=== PATIENT | male | born 1960 | race Caucasian/White ===

== ENCOUNTER 2018-01-29 06:33 | Day surgery (SDC) | END 2018-01-29 16:13 | disposition home or self-care (01) ==

== ENCOUNTER 2018-06-03 14:34 | Inpatient (IN) | payer OTHER ==
[~2018-06-03] VITALS: Ht 167.6 cm; Wt 67.6 kg
[~2018-06-03 14:34] MED LIST: ADMELOG; ALBUTEROL SULFATE; ATORVASTATIN; FERROUS SULFATE; FUROSEMIDE; GLIPIZIDE; HYDRALAZINE; LOSARTAN; TAMSULOSIN
[2018-06-03] MEDS ORDERED: FUROSEMIDE 40 MG INJ IV STA (16:36)
[2018-06-03] MEDS ORDERED: ASPIRIN 81 MG TAB PO STA (16:36)
[2018-06-03] MEDS ORDERED: NITROGLYCERIN 2% 1 GM OINT PKT TD STA (16:36)
[2018-06-03] MEDS ORDERED: NITROGLYCERIN (SL) 0.4 MG TAB SL PRN (17:00)
[2018-06-03] MEDS ORDERED: SITA100T11 PO (17:32)
[2018-06-03] MEDS ORDERED: TAMS0.4C2 PO (17:32)
[2018-06-03] MEDS ORDERED: HYDR-3672 PO (17:33)
[2018-06-03] MEDS ORDERED: ATOR40TA68 PO (17:33)
[2018-06-03] MEDS ORDERED: LOSA50TA14 PO (17:34)
[2018-06-03] MEDS ORDERED: INSU100I33 SC (17:34)
[2018-06-03] MEDS ORDERED: GLIP5TAB13 PO (17:35)
[2018-06-03] MEDS ORDERED: FURO80TA3 PO (17:36)
[2018-06-03] MEDS ORDERED: FER325 PO (17:36)
[2018-06-03] MEDS ORDERED: GLIP10TA14 PO (17:36)
[2018-06-03] MEDS ORDERED: EPOE10004 IJ (17:37)
[2018-06-03] MEDS ORDERED: CEFTRIAXONE 1 GM/50 ML (PMX) 50 ML IVPB STA (17:53)
[2018-06-03] MEDS ORDERED: AZITHROMYCIN 500MG/NS (PMX) 250 ML IV STA (17:53)
[2018-06-03] MEDS ORDERED: ACETAMINOPHEN 325 MG TAB PO PRN (19:30)
[2018-06-03] MEDS ORDERED: ONDANSETRON 4 MG INJ IV PRN (19:30)
[2018-06-03 20:30] VITALS: BP 159/88; PULSE 64; RESP 18
[2018-06-03] MEDS ORDERED: NACL 0.9% 3 ML SYG IV SCH (20:30)
[2018-06-03] MEDS ORDERED: BISACODYL (EC) 5 MG TAB PO PRN (20:30)
[2018-06-03 20:45] VITALS: Ht 167.6 cm; Wt 67.6 kg
--- NOTE | 2018-06-03 21:12 | HP ---
Date/Time of Note Date/Time of Note DATE: 06/03/18 TIME: 21:12 Assessment/Plan VTE Prophylaxis SCD applied (from Nsg): Yes Pharmacological prophylaxis: NA/contraindicated Pharm contraindication: low risk/ambulating Lines/Catheters IV Catheter Type (from Nrsg): Saline Lock Assessment/Plan Hospital Course This is a 58-year-old male who is being admitted to the telemetry floor for: #1 volume overload: Likely multifactorial secondary to underlying suspected end- stage renal disease/cardiac etiology and possible obstructive uropathy. Patient at the current time is not in any respiratory distress. He does have extensive pitting edema of the bilateral lower extremities as well as some of the scrotum. Patient was noted to have a distended abdomen, and Abdi catheter was initially difficult to place eventually though it was put in. There was urine output. Will check a renal ultrasound. Will check urine studies. Will consult nephrology Dr. Canada. Will obtain an echocardiogram. #2 acute on chronic chronic kidney disease with suspected near end-stage renal disease: Likely secondary to underlying hypertension/diabetes mellitus. Patient has a history of chronic kidney disease however I do not have any previous creatinine values. I also feel there may be a component of obstructive uropathy given the difficulty in placing his Abdi. At the current time he has a BUN of 80 with a creatinine of 5.2. Abdi catheter was initially difficult to place however now it is putting a urine. We will monitor renal function. Will check a renal ultrasound. Check urine studies. Will consult nephrology Dr. Canada. He did receive a dose of Lasix 40 mg IV in the ED, I will give a dose of Zaroxolyn and an additional 60 IV of Lasix to assess diuresis. Avoid NSAIDs. Will hold ARB at the current time. I did discuss with the patient and his son over the phone in regards to the patient possibly needing temporary as well as permanent dialysis access, the patient states that he will discuss with his family as well as with the father and get back to us regarding this will also ch juan diego hepatitis panel and vitamin D and parathyroid levels. #3 possible obstructive uropathy: Initial difficulty in placing Abdi secondary to resistance, concern for possible BPH. Will check a PSA level. Will consult urology. #4 suspect community-acquired pneumonia: Chest x-ray does show signs of possible pneumonia. He is afebrile although it is a normal white blood cell count. We will treat as for possible pneumonia at the current time with ceftriaxone and azithromycin is a 30 been initiated in the ED. Monitor for signs of fever. #5 insulin-dependent diabetes mellitus: We will check a hemoglobin A1c, resume home insulin, will hold home oral medications. Insulin sliding scale. Will check urine microalbumin. #6 Hypertensive urgency: We will resume patient's home medications except for losartan which I will be holding. PRN hydralazine, I will also initiate 5 mg of Norvasc daily. #7 normocytic anemia: Likely secondary to underlying chronic kidney disease. Further management as per nephro. Does appear to be on Procrit as an outpatient #8 hyperlipidemia: Continue statin check lipid panel #9 blindness: Likely secondary to diabetic retinopathy. #10 DVT GI prophylaxis: SCDs, no GI prophylaxis indicated Further treatment strategy will be implemented as per the clinical course. Result Diagram: 06/03/18 1641 06/03/18 1958 Results 24hrs Laboratory Tests Test 06/03/18 16:41 06/03/18 18:15 06/03/18 19:58 White Blood Count 5.0 Red Blood Count 3.91 L Hemoglobin 10.6 L Hematocrit 34.7 L Mean Corpuscular Volume 88.7 Mean Corpuscular Hemoglobin 27.1 L Mean Corpuscular Hemoglobin Concent 30.5 L Red Cell Distribution Width 16.2 H Platelet Count 224 Mean Platelet Volume 9.1 Immature Granulocytes % 0.400 Neutrophils % 72.2 Lymphocytes % 12.0 L Monocytes % 10.6 Eosinophils % 4.2 Basophils % 0.6 Nucleated Red Blood Cells % 0.0 Immature Granulocytes # 0.020 Neutrophils # 3.6 Lymphocytes # 0.6 L Monocytes # 0.5 Eosinophils # 0.2 Basophils # 0.0 Nucleated Red Blood Cells # 0.0 Sodium Level 145 H 146 H Potassium Level 4.5 4.9 Chloride Level 108 106 Carbon Dioxide Level 24 26 Anion Gap 13 14 H Blood Urea Nitrogen 80 H 80 H Creatinine 5.28 H 5.29 H Est Glomerular Filtrat Rate mL/min 11 L Glucose Level 161 152 Calcium Level 8.7 8.8 Troponin I 0.020 Lactic Acid Level 0.7 0.8 Phosphorus Level 6.1 H Albumin 4.0 HPI/ROS Admit Date/Time Admit Date/Time Jun 03, 2018 at 19:20 Hx of Present Illness cc: increased swelling Patient is a 58-year-old male with hypertension, diabetes, chronic kidney disease, and blindness who presents saying that he is retaining too much fluid. Hx was obtained from the patient as well was from the son over the phone. The patient went to his doctor and was sent to the ER for "retaining too much fluid". It started approximately 1 month ago according to him. He has had bilateral leg swelling that is worsening. He has kidney disease. His shortness of breath with laying down. He takes Lasix. He has left-sided chest pain that started yesterday. He does not get dialysis. Was admitted for approximately 1 week last year to [facility] for encephalitis. allergies: nkda meds: see may Const: Per HPI Eyes : No pain discharge or redness or change in visual acuity ENT: No pain, sore throat, congestion, congestion, dysphagia or discharge Respiratory: No shortness of breath, cough, sputum, wheezing, or pleuritic pain Cardiovascular: No chest pain, palpitation, PND, or edema GI : no change in appetite, abdominal pain, nausea, vomiting, diarrhea, constipation, or change in the color his stool Genitourinary: As per HPI Musculoskeletal: No joint pain, back pain, neck pain, restricted range of motion in neck or joints Skin: No rash, bruising or hives Neuro: No headache, dizziness, syncope, seizure, focal weakness Endocrine: No polyuria, polydipsia, temperature intolerance Psych: No hallucination, depression, anxiety or suicidal ideation PMH/Family/Social Past Medical History hypertension, diabetes, chronic kidney diseasestage unknown, blindness, hx of encephalitis, Medications Current Medications Nitroglycerin (Nitroglycerin (Sl Tab) 0.4 Mg) 1 tab Q5M UP TO 3 DOSES PRN SL .CHEST PAIN; Start 06/03/18 at 17:00 Ondansetron HCl (Zofran Inj) 4 mg ER BRIDGE PRN IV NAUSEA/VOMITING; Start 06/03/18 at 19:30; Stop 06/04/18 at 19:29 Acetaminophen (Tylenol Tab) 650 mg ER BRIDGE PRN PO .MILD PAIN 1-3 OR TEMP; Start 06/03/18 at 19:30; Stop 06/04/18 at 19:29 IV Flush (NS 3 ml) 3 ml PER PROTOCOL IV ; Start 06/03/18 at 20:30 Ondansetron HCl (Zofran Inj) 4 mg Q6H PRN IV NAUSEA/VOMITING; Start 06/03/18 at 20:30 Acetaminophen (Tylenol Tab) 650 mg Q6H PRN PO .PAIN 1-3 OR TEMP; Start 06/03/18 at 20:30 Docusate Sodium (Colace) 100 mg Q12H PRN PO .CONSTIPATION; Start 06/03/18 at 20:30 Bisacodyl (Dulcolax) 5 mg DAILY PRN PO .CONSTIPATION; Start 06/03/18 at 20:30 Coded Allergies: No Known Allergy (Unverified , 06/03/18) Past Surgical History Past Surgical Hx: appendectomy Family History Significant Family History: no pertinent family hx Social History Alcohol Use: none Smoking Status: Never smoker Drug Use: none Exam/Review of Systems Vital Signs Vitals Vital Signs Date Temp Pulse Resp B/P (MAP) Pulse Ox O2 O2 Flow FiO2 Time Delivery Rate 06/03/18 63 18 160/95 95 Room Air 19:32 (116) 06/03/18 96.5 14:42 Exam Exam General: Patient is currently lying in bed in no acute distress HEENT: Atraumatic, normocephalic. Patient is blind Neck: Supple with full range of motion. No rigidity or meningismus Chest: Nontender Lungs: Clear to auscultation bilaterally no crackles rales or wheezing Heart: Normal S1-S2, Regular rhythm and rate. No murmur, S3, or S4 Abdomen: Soft, distended, nontender to palpation. Patient did have a Abdi catheter placed which did meet initial resistance but did result in urine output Extremities: Normal to inspection, no edema no cyanosis Neurologic: Normal mental status, speech normal, free range of motion x4, 5 out of 5 strength in bilateral upper and lower extremities. Patient is blind. Additional Comments EKG read by me: Rate/Rhythm: Regular rate and rhythm at a normal rate Intervals: Normal Impression: No evidence of ischemia or arrhythmia PROCEDURE: XR Chest. CLINICAL INDICATION: Chest pain TECHNIQUE: Single frontal view of the chest was obtained COMPARISON: 03/21/18 FINDINGS: The heart is enlarged. The thoracic aorta is calcified. There is a right lower lobe infiltrate and small to moderate right pleural effusion. There is a trace left pleural effusion. There is no pneumothorax. RPTAT: AA IMPRESSION: Mild cardiomegaly. Calcified aorta consistent with atherosclerotic disease. Right lower lobe infiltrate and small to moderate right pleural effusion. Trace left pleural effusion. .Robson Phipps MD, Date Time Electronically viewed and signed by .Robson Phipps MD, MD on 06/03/2018 17:25 .S/ CC: CHARLOTTE RITTER MD [id number] ADELIA ARIAS Jun 03, 2018 21:12
--- NOTE | 2018-06-03 21:17 | ERD ---
ER Documentation Chief Complaint Chief Complaint Sent from MD for evaluation abdominal pain and HTN HPI Patient is a 58-year-old male with hypertension, diabetes, chronic kidney disease, and blindness who presents saying that he is retaining too much fluid. A [employer] was used for the entire history and physical exam. The patient went to his doctor and was sent to the ER for "retaining too much fluid". It started 1.5 months ago. He has had bilateral leg swelling that is worsening. He has kidney disease. His shortness of breath with laying down. He takes Lasix. He has left-sided chest pain that started yesterday. He does not get dialysis. Upon review of old medical records this is the patient's first visit to the emergency department. The patient [facility] to [facility]. ROS All systems reviewed and are negative except as per history of present illness. Medications Home Meds Reported Medications Epoetin Federico (Procrit) 10,000 Unit/1 Ml Vial, 97817 UNIT IJ Q1 WEEK, VIAL 06/03/18 Furosemide* (Furosemide*) 80 Mg Tablet, 80 MG PO BID, #60 TAB 06/03/18 Ferrous Sulfate* (Ferrous Sulfate*) 325 Mg Tabec, 325 MG PO BID, TAB 06/03/18 Glipizide* (Glipizide*) 10 Mg Tablet, 5 MG PO AC BREAKFAST DINNER, TAB 06/03/18 Insulin Glargine,Hum.rec.anlog (Basaglar Kwikpen U-100) 100 Unit/1 Ml Insuln.pen, 10 UNIT SC QHS, EA 06/03/18 Losartan Potassium* (Losartan Potassium*) 50 Mg Tablet, 50 MG PO DAILY, TAB 06/03/18 Atorvastatin* (Atorvastatin*) 40 Mg Tablet, 40 MG PO QHS, #30 TAB 06/03/18 Hydralazine Hcl* (Hydralazine Hcl*) 50 Mg Tab, 50 MG PO TID, #90 TAB 06/03/18 Tamsulosin Hcl* (Tamsulosin Hcl*) 0.4 Mg Cap.er.24h, 0.4 MG PO HS, CAP 06/03/18 Sitagliptin* (Januvia*) 100 Mg Tablet, 100 MG PO DAILY, #30 TAB 06/03/18 Discontinued Reported Medications Glipizide* (Glipizide*) 5 Mg Tablet, 5 MG PO AC BREAKFAST DINNER, TAB 06/03/18 [Ferrous Sulfate] No Conflict Check 01/29/18 [Glipizide] No Conflict Check 01/29/18 [Admelog Solostar] No Conflict Check 01/29/18 [Losartan] No Conflict Check 01/29/18 [Atorvastatin] No Conflict Check 01/29/18 [Hydralazine] No Conflict Check 01/29/18 [Albuterol Sulfate] No Conflict Check 01/29/18 [Furosemide] No Conflict Check 01/29/18 [Tamsulosin] No Conflict Check 01/29/18 Allergies Allergies: Coded Allergies: No Known Allergy (Unverified , 06/03/18) PMhx/Soc History of Surgery: Yes (APPENDECTOMY) Anesthesia Reaction: No Hx Neurological Disorder: No Hx Respiratory Disorders: Yes (ASTHMA) Hx Cardiac Disorders: Yes (HTN, HYPERLIPIDEMIA) Hx Psychiatric Problems: No Hx Miscellaneous Medical Probl: No Hx Alcohol Use: No Hx Substance Use: No Hx Tobacco Use: No Smoking Status: Never smoker FmHx Family History: No coronary disease Physical Exam Vitals Vital Signs Date Temp Pulse Resp B/P (MAP) Pulse Ox O2 O2 Flow FiO2 Time Delivery Rate 06/03/18 177/94 18:08 (121) 06/03/18 63 18 190/91 98 Room Air 17:09 (124) 06/03/18 96.5 64 20 213/100 99 14:42 (137) Physical Exam Const: No acute distress Head: Atraumatic Eyes: Blindness at baseline ENT: Normal External Ears, Nose and Mouth. Neck: Full range of motion. No meningismus. Resp: Clear to auscultation bilaterally Cardio: Regular rate and rhythm, no murmurs Abd: Soft, non tender, non distended. Normal bowel sounds Skin: No petechiae or rashes Back: No midline or flank tenderness Ext: 2+ pitting edema bilaterally Neur: Awake and alert Psych: Normal Mood and Affect Result Diagram: 06/03/18 1641 06/03/181957 Results 24 hrs Laboratory Tests Test 06/03/18 16:41 06/03/18 18:15 White Blood Count 5.0 10^3/ul Red Blood Count 3.91 10^6/ul Hemoglobin 10.6 g/dl Hematocrit 34.7 % Mean Corpuscular Volume 88.7 fl Mean Corpuscular Hemoglobin 27.1 pg Mean Corpuscular Hemoglobin Concent 30.5 g/dl Red Cell Distribution Width 16.2 % Platelet Count 224 10^3/UL Mean Platelet Volume 9.1 fl Immature Granulocytes % 0.400 % Neutrophils % 72.2 % Lymphocytes % 12.0 % Monocytes % 10.6 % Eosinophils % 4.2 % Basophils % 0.6 % Nucleated Red Blood Cells % 0.0 /100WBC Immature Granulocytes # 0.020 10^3/ul Neutrophils # 3.6 10^3/ul Lymphocytes # 0.6 10^3/ul Monocytes # 0.5 10^3/ul Eosinophils # 0.2 10^3/ul Basophils # 0.0 10^3/ul Nucleated Red Blood Cells # 0.0 10^3/ul Sodium Level 145 mmol/L Potassium Level 4.5 mmol/L Chloride Level 108 mmol/L Carbon Dioxide Level 24 mmol/L Anion Gap 13 Blood Urea Nitrogen 80 mg/dl Creatinine 5.28 mg/dl Est Glomerular Filtrat Rate mL/min 11 mL/min Glucose Level 161 mg/dl Calcium Level 8.7 mg/dl Troponin I 0.020 ng/ml Lactic Acid Level 0.7 mmol/L Current Medications Medications Dose Sig/Kingsley Start Time Status Last (Trade) Ordered Route PRN Stop Time Admin Dose Reason Admin Aspirin 162 mg ONCE STAT 06/03/18 DC 06/03/18 (Aspirin) PO 16:36 17:03 06/03/18 16:37 1 inch ONCE STAT 06/03/18 DC 06/03/18 Nitroglycerin TD 16:36 17:03 06/03/18 16:37 (Nitroglyceri n 2% Oint) 1 tab Q5M UP TO 3 06/03/18 Nitroglycerin DOSES PRN 17:00 SL .CHEST (Nitroglyceri PAIN n (Sl Tab) 0.4 Mg) Furosemide 40 mg ONCE STAT 06/03/18 DC 06/03/18 (Lasix) IV 16:36 17:03 06/03/18 16:38 Azithromycin 250 ml @ ONCE STAT 06/03/18 DC 06/03/18 250 mls/hr IV 17:53 18:40 06/03/18 18:52 Ceftriaxone 50 ml @ ONCE STAT 06/03/18 DC 06/03/18 Sodium 100 mls/hr IVPB 17:53 18:05 06/03/18 18:22 Procedures/MDM EKG read by me: Rate/Rhythm: Regular rate and rhythm at a normal rate Intervals: Normal Impression: No evidence of ischemia or arrhythmia Chest x-ray read by radiology. Patient is a 58-year-old male who presents with acute retention of fluid. I am worried about acute on chronic renal failure and the patient may require dialysis if this worsens. Chest x-ray shows pneumonia and he was given ceftriaxone and Zithromax after blood cultures. 2 lactic acids were normal and I doubt sepsis. The patient will be admitted to the care of Dr. Clayton from the panel team. He was given aspirin, nitroglycerin, and Lasix. I believe that inpatient admission is appropriate as he has pneumonia as well as fluid issues and the potential need for dialysis making of high risk patient. Departure Diagnosis: Primary Impression: Pneumonia Pneumonia type: due to unspecified organism Laterality: right Lung location: lower lobe of lung Qualified Codes: J18.1 - Lobar pneumonia, unspecified organism Additional Impressions: Chest pain Chest pain type: unspecified Qualified Codes: R07.9 - Chest pain, unspecified Shortness of breath Condition: CHARLOTTE Park MD Jun 03, 2018 21:17
[2018-06-03] MEDS ORDERED: morphine 2 MG INJ IV STA (22:28)
[2018-06-03] MEDS ORDERED: morphine 2 MG INJ IV ONE (23:05)
[2018-06-03 23:45] VITALS: BP 159/88; PULSE 64; RESP 18
[2018-06-04] VITALS (13 sets, daily range): BP systolic 130–197; BP diastolic 68–98; PULSE 63–88; RESP 17–19
[2018-06-04] MEDS: hydrALAzine 20 MG INJ IV PRN (01:41)
[2018-06-04] MEDS: AMLODIPINE 5 MG TAB PO SCH ×2 (01:41→08:46)
[2018-06-04] MEDS ORDERED: FUROSEMIDE 40 MG INJ IV ONE ×2 (02:00→18:00)
[2018-06-04] MEDS: METOLAZONE 2.5 MG TAB PO ONE ×2 (02:19→04:14)
[2018-06-04] MEDS ORDERED: DEXTROSE 50% 50 ML SYRINGE IV PRN ×2 (08:00)
[2018-06-04] MEDS ORDERED: GLUCAGON 1 MG INJ IM PRN (08:00)
[2018-06-04] MEDS ORDERED: GLUCOSE GEL 15 GRAM TUBE PO PRN ×2 (08:00)
[2018-06-04] MEDS ORDERED: GLUCOSE GEL 15 GRAM TUBE BUCCAL PRN (08:00)
--- NOTE | 2018-06-04 08:26 | CONS ---
DATE OF ADMISSION: 06/03/2018 DATE OF CONSULTATION: 06/04/2018 TYPE OF CONSULTATION: Nephrology. REASON FOR CONSULTATION: Chronic kidney disease and acute kidney injury. PHYSICIAN REQUESTING CONSULT: Dr. Arias. HISTORY OF PRESENT ILLNESS: This is a 58-year-old male with a past medical history of diabetes, hist ory of hypertension, history of blindness, history of chronic kidney disease who presents to the [facility] for evaluation of abdominal pain and hypertension. The patient is a poor hi storian, but reports that he went to see his primary care physician and was told that he needed to co me to the emergency room for evaluation. The patient stated about one month ago, he noted increasing swelling on his lower extremity that was progressively getting worse. Upon arrival to the emergency room, the patient was noted to have elevated BUN and creatinine. The patient had a chest x-ray, whi ch showed possible pneumonia. The patient is on antibiotic therapy, diuretics and admitted to [facility] for evaluation. In terms of patient's renal history, the patient is a poor historian, but reports being told that he has a history of kidney disease. The patient has never seen a kidney doctor. He denies any hemoptys is, hematemesis or hematochezia. The patient denies any nausea. He does describe general weakness. PAST MEDICAL HISTORY: As stated above, history of chronic kidney disease, hypertension, diabetes, hi story of blindness, possible diabetic retinopathy. FAMILY HISTORY: No family history of kidney disease. SOCIAL HISTORY: He does not drink, smoke or do drugs. MEDICATIONS: The patient's medications have been reviewed. REVIEW OF SYSTEMS: A 14-point review of systems was conducted. Pertinent positives stated in HPI, o therwise negative. PAST SURGICAL HISTORY: Status post appendectomy. PHYSICAL EXAMINATION: VITAL SIGNS: Blood pressure is 181/93, respirations 18, pulse 67, temperature 98.2. HEENT: Head is normocephalic. NECK: Supple. HEART: Regular rate. LUNGS: Show diminished breath sounds at the base. ABDOMEN: Soft, nontender to palpation without rebound or guarding. EXTREMITIES: Negative for clubbing, cyanosis. Positive edema. DERMATOLOGIC: No rashes. MUSCULOSKELETAL: No joint effusion. NEUROLOGIC: Limited exam, but no obvious focal deficits. LABORATORY DATA: Sodium 145, potassium 4.2, BUN 79, creatinine 5.41. White count 6.6, hemoglobin 9. 8, platelet count 201. The patient's urinalysis shows 40 RBCs, no WBCs, +2 proteinuria. Hemoglobin A1c 6.5. IMAGING STUDIES: Renal ultrasound was reviewed, showed increased echogenicities consistent with medi brian renal disease, no hydronephrosis, moderately distended urinary bladder. Chest x-ray was reviewed. ASSESSMENT AND PLAN: This is a 58-year-old male who presents with; 1. Renal failure, possible chronic kidney disease with progression towards end-stage renal disease. A possible component of acute kidney injury is also a consideration. The patient's initial urinalys is shows +3 proteinuria and positive RBCs. Renal ultrasound shows increased echogenicity consistent with chronic kidney disease. Plan at this point would be to quantify the patient's proteinuria. We would consider checking serological data. Additionally, we will attempt again to contact the patient 's family to ascertain what baseline renal function is. We would continue current diuretic regimen a s the patient's volume overloaded. We will monitor renal function closely. If patient's renal funct ion does not improve and he should develop overt uremic symptoms, we would consider starting the esteban ent on hemodialysis. 2. Hypernatremia, encourage free water intake. 3. Anemia. Check iron panel, stool for occult blood. We will give Epogen as needed. 4. Mineral bone disorder. Monitor calcium and phosphorus levels. PTH levels are pending. 5. Volume overload. Etiology may be secondary to possible end-stage renal disease. There may be a component of heart failure. We would recommend checking 2D echo. Continue diuretic therapy, and mon itor closely. 6. Hypertension. Continue current blood pressure regimen. We would defer any AGAPITO inhibitor or ARB at this time. 7. Pneumonia. Continue current antibiotic regimen. 8. Diabetes. Continue current insulin regimen. 9. Dyslipidemia. Continue statin therapy. 10. Blindness is likely secondary to diabetic retinopathy. Continue to monitor. Thank you, Dr. Arias, for this interesting consult. It will be a pleasure to follow the patient wi th you throughout the hospital course. Dictated By: PEPITO CRISTOBAL DO NR/NTS Conf#: [id number] DID#: [id number] CC: ADELIA ARIAS MD; DANGELO PERDUE MD;*EndCC*
[2018-06-04] MEDS: INSULIN ASPART [NOVOLOG] 3 ML PEN SC SCH ×4 (08:30→21:00)
[2018-06-04] MEDS: FERROUS SULFATE (EC) 325 MG TAB PO SCH ×2 (08:46→21:11)
[2018-06-04] MEDS: ACETAMINOPHEN 325 MG TAB PO PRN (09:02)
[2018-06-04] MEDS ORDERED: NIFEdipine (XL) 30 MG TAB PO SCH (09:30)
--- NOTE | 2018-06-04 09:34 | PN ---
Date/Time of Note Date/Time of Note DATE: 06/04/18 TIME: 09:34 Assessment/Plan VTE Prophylaxis SCD applied (from Nsg): Yes Pharmacological prophylaxis: NA/contraindicated Pharm contraindication: low risk/ambulating Lines/Catheters IV Catheter Type (from Nrsg): Saline Lock Urinary Cath still in place: Yes Reason Cath still needed: other (indicate) Assessment/Plan Hospital Course SUBJECTIVE: Lying in bed comfortably. Having bilateral lower extremity swelling. No difficulty breathing. OBJECTIVE: Vital signs-see below PHYSICAL EXAM: Constitutional: Well-developed, adequately built, lying in bed comfortably. Psych: nl mood/affect, no complaints Head: atraumatic, normocephalic Eyes: nl conjunctiva, nl sclera ENMT: mucosa pink and moist, nl external ears & nose Neck: non-tender, supple Respiratory: +Crackles bilaterally , normal air movement Cardiovascular: nl pulses, regular rate and rhythm Gastrointestinal: non-tender, soft, bowel sounds active in all 4 quadrants. Musculoskeletal/extremities: +3 pitting BLE. nl extremities to inspection, motor strength equal bilaterally, no focal deficit. Normal pulses,no cyanosisNeurological: Alert oriented 3,nl speech, nl strength Skin: nl turgor ASSESSMENT/PLAN: 58-year-old male with advanced CKD,htn,dm here with worsening BLE edema, renal fxn, htn who was referred by PCP to get admitted. 1. CKD,likely progressed to ESRD -Nephrology on board. Patient would hemodialysis if his renal function deteriorates further. Family currently discussing on this. -Follow-up nephrology recommendations. 2. Hypertensive urgency. -ACEi/ARB on hold per nephro -We will start nifedipine and beta-blockers. -Continue hydralazine and will put a hold parameter on it. 3. Volume overload w/ESRD, possible HF -s/p lasix -We will also obtain a BNP and follow-up echocardiogram. -Fluid management per nephrology. -Start BB,consider Cards consult 4. Elevated TSH -Obtain free T4 level. 5. Vitamin D deficient -We will start patient on treatment for this. 6. Type 2 diabetes. -Stable glycemic trends. -Accu-Cheks/ISS/Lantus insulin. Stable glycemic trends. 7. Dyslipidemia -Continue statin per 8. BPH -On Flomax DVT prophylaxis: SCDs/ambulation PUD prophylaxis: Not indicated CODE STATUS: Full code Diet: Renal/carbohydrate controlled diet. Disposition: Follow-up nephrology recommendations. Monitor volume status closely. Patient was seen in collaboration with Dr. Lynne Result Diagram: 06/04/18 0600 06/04/18 0601 Results 24hrs Laboratory Tests Test 06/03/18 16:41 06/03/18 18:15 06/03/18 19:58 06/03/18 21:35 White Blood Count 5.0 Red Blood Count 3.91 L Hemoglobin 10.6 L Hematocrit 34.7 L Mean Corpuscular 88.7 Volume Mean Corpuscular 27.1 L Hemoglobin Mean Corpuscular 30.5 L Hemoglobin Concent Red Cell 16.2 H Distribution Width Platelet Count 224 Mean Platelet Volume 9.1 Immature 0.400 Granulocytes % Neutrophils % 72.2 Lymphocytes % 12.0 L Monocytes % 10.6 Eosinophils % 4.2 Basophils % 0.6 Nucleated Red Blood 0.0 Cells % Immature 0.020 Granulocytes # Neutrophils # 3.6 Lymphocytes # 0.6 L Monocytes # 0.5 Eosinophils # 0.2 Basophils # 0.0 Nucleated Red Blood 0.0 Cells # Sodium Level 145 H 146 H Potassium Level 4.5 4.9 Chloride Level 108 106 Carbon Dioxide Level 24 26 Anion Gap 13 14 H Blood Urea Nitrogen 80 H 80 H Creatinine 5.28 H 5.29 H Est Glomerular 11 L Filtrat Rate mL/min Glucose Level 161 152 Calcium Level 8.7 8.8 Troponin I 0.020 Lactic Acid Level 0.7 0.8 Phosphorus Level 6.1 H Albumin 4.0 Bedside Glucose 120 Test 06/03/18 21:52 06/03/18 23:30 06/04/18 05:54 06/04/18 06:00 Creatine Kinase 216 H 192 Creatine Kinase 1.7 1.9 Index Creatinine Kinase MB 3.63 H 3.63 H (Mass) Troponin I 0.026 0.032 Urine Color YELLOW Urine Clarity CLEAR Urine pH 5.0 Urine Specific 1.013 [place] Urine Ketones NEGATIVE Urine Nitrite NEGATIVE Urine Bilirubin NEGATIVE Urine Urobilinogen NEGATIVE Urine Leukocyte NEGATIVE Esterase Urine Microscopic 14 H RBC Urine Microscopic 1 WBC Urine Bacteria FEW A Urine Hemoglobin 1+ H Urine Random Sodium 97 H Urine Glucose 2+ H Urine Total Protein 3+ H Hemoglobin A1c 6.5 H 6.5 H White Blood Count 6.6 # Red Blood Count 3.59 L Hemoglobin 9.8 L Hematocrit 31.7 L Mean Corpuscular 88.3 Volume Mean Corpuscular 27.3 L Hemoglobin Mean Corpuscular 30.9 L Hemoglobin Concent Red Cell 16.1 H Distribution Width Platelet Count 201 Mean Platelet Volume 9.0 Immature 0.500 H Granulocytes % Neutrophils % 80.1 H Lymphocytes % 7.1 L Monocytes % 8.8 Eosinophils % 2.6 Basophils % 0.9 Nucleated Red Blood 0.0 Cells % Immature 0.030 Granulocytes # Neutrophils # 5.3 Lymphocytes # 0.5 L Monocytes # 0.6 Eosinophils # 0.2 Basophils # 0.1 Nucleated Red Blood 0.0 Cells # Prostate Specific 2.6 Antigen Vitamin D 15.0 L 1,25-Dihydroxy Hepatitis B Surface NEGATIVE Antigen Hepatitis B Surface NEGATIVE Antibody Hepatitis B Core NEGATIVE Total Antibody Hepatitis C Antibody NEGATIVE Test 06/04/18 06:01 06/04/18 08:23 Sodium Level 145 H Potassium Level 4.2 Chloride Level 108 Carbon Dioxide Level 24 Anion Gap 13 Blood Urea Nitrogen 79 H Creatinine 5.41 H Est Glomerular 11 L Filtrat Rate mL/min Glucose Level 125 Calcium Level 8.3 L Magnesium Level 2.2 Total Bilirubin 0.1 L Direct Bilirubin 0.00 Indirect Bilirubin 0.1 Aspartate Amino 16 Transf (AST/SGOT) Alanine 23 Aminotransferase (AL T/SGPT) Alkaline Phosphatase 111 Total Protein 6.4 Albumin 3.6 Globulin 2.80 Albumin/Globulin 1.28 Ratio Triglycerides Level 104 Cholesterol Level 143 LDL Cholesterol, 84 Calculated HDL Cholesterol 38 Cholesterol/HDL 3.7 Ratio Thyroid Stimulating 8.940 H Hormone (TSH) Bedside Glucose 121 Exam/Review of Systems Exam Vitals Vital Signs Date Temp Pulse Resp B/P (MAP) Pulse Ox O2 O2 Flow FiO2 Time Delivery Rate 06/04/18 65 08:00 06/04/18 98.2 18 181/93 93 07:44 (122) 06/03/18 Room Air 19:32 Intake and Output 06/03/18 06/03/18 06/04/18 1414:59 22:59 06:59 IntakeIntake Total 300 ml 200 ml OutputOutput Total 575 ml BalanceBalance 300 ml -375 ml Results Results 24hrs Laboratory Tests Test 06/03/18 16:41 06/03/18 18:15 06/03/18 19:58 06/03/18 21:35 White Blood Count 5.0 Red Blood Count 3.91 L Hemoglobin 10.6 L Hematocrit 34.7 L Mean Corpuscular 88.7 Volume Mean Corpuscular 27.1 L Hemoglobin Mean Corpuscular 30.5 L Hemoglobin Concent Red Cell 16.2 H Distribution Width Platelet Count 224 Mean Platelet Volume 9.1 Immature 0.400 Granulocytes % Neutrophils % 72.2 Lymphocytes % 12.0 L Monocytes % 10.6 Eosinophils % 4.2 Basophils % 0.6 Nucleated Red Blood 0.0 Cells % Immature 0.020 Granulocytes # Neutrophils # 3.6 Lymphocytes # 0.6 L Monocytes # 0.5 Eosinophils # 0.2 Basophils # 0.0 Nucleated Red Blood 0.0 Cells # Sodium Level 145 H 146 H Potassium Level 4.5 4.9 Chloride Level 108 106 Carbon Dioxide Level 24 26 Anion Gap 13 14 H Blood Urea Nitrogen 80 H 80 H Creatinine 5.28 H 5.29 H Est Glomerular 11 L Filtrat Rate mL/min Glucose Level 161 152 Calcium Level 8.7 8.8 Troponin I 0.020 Lactic Acid Level 0.7 0.8 Phosphorus Level 6.1 H Albumin 4.0 Bedside Glucose 120 Test 06/03/18 21:52 06/03/18 23:30 06/04/18 05:54 06/04/18 06:00 Creatine Kinase 216 H 192 Creatine Kinase 1.7 1.9 Index Creatinine Kinase MB 3.63 H 3.63 H (Mass) Troponin I 0.026 0.032 Urine Color YELLOW Urine Clarity CLEAR Urine pH 5.0 Urine Specific 1.013 [place] Urine Ketones NEGATIVE Urine Nitrite NEGATIVE Urine Bilirubin NEGATIVE Urine Urobilinogen NEGATIVE Urine Leukocyte NEGATIVE Esterase Urine Microscopic 14 H RBC Urine Microscopic 1 WBC Urine Bacteria FEW A Urine Hemoglobin 1+ H Urine Random Sodium 97 H Urine Glucose 2+ H Urine Total Protein 3+ H Hemoglobin A1c 6.5 H 6.5 H White Blood Count 6.6 # Red Blood Count 3.59 L Hemoglobin 9.8 L Hematocrit 31.7 L Mean Corpuscular 88.3 Volume Mean Corpuscular 27.3 L Hemoglobin Mean Corpuscular 30.9 L Hemoglobin Concent Red Cell 16.1 H Distribution Width Platelet Count 201 Mean Platelet Volume 9.0 Immature 0.500 H Granulocytes % Neutrophils % 80.1 H Lymphocytes % 7.1 L Monocytes % 8.8 Eosinophils % 2.6 Basophils % 0.9 Nucleated Red Blood 0.0 Cells % Immature 0.030 Granulocytes # Neutrophils # 5.3 Lymphocytes # 0.5 L Monocytes # 0.6 Eosinophils # 0.2 Basophils # 0.1 Nucleated Red Blood 0.0 Cells # Prostate Specific 2.6 Antigen Vitamin D 15.0 L 1,25-Dihydroxy Hepatitis B Surface NEGATIVE Antigen Hepatitis B Surface NEGATIVE Antibody Hepatitis B Core NEGATIVE Total Antibody Hepatitis C Antibody NEGATIVE Test 06/04/18 06:01 06/04/18 08:23 Sodium Level 145 H Potassium Level 4.2 Chloride Level 108 Carbon Dioxide Level 24 Anion Gap 13 Blood Urea Nitrogen 79 H Creatinine 5.41 H Est Glomerular 11 L Filtrat Rate mL/min Glucose Level 125 Calcium Level 8.3 L Magnesium Level 2.2 Total Bilirubin 0.1 L Direct Bilirubin 0.00 Indirect Bilirubin 0.1 Aspartate Amino 16 Transf (AST/SGOT) Alanine 23 Aminotransferase (AL T/SGPT) Alkaline Phosphatase 111 Total Protein 6.4 Albumin 3.6 Globulin 2.80 Albumin/Globulin 1.28 Ratio Triglycerides Level 104 Cholesterol Level 143 LDL Cholesterol, 84 Calculated HDL Cholesterol 38 Cholesterol/HDL 3.7 Ratio Thyroid Stimulating 8.940 H Hormone (TSH) Bedside Glucose 121 Medications Medication Current Medications Nitroglycerin (Nitroglycerin (Sl Tab) 0.4 Mg) 1 tab Q5M UP TO 3 DOSES PRN SL .CHEST PAIN; Start 06/03/18 at 17:00 IV Flush (NS 3 ml) 3 ml PER PROTOCOL IV ; Start 06/03/18 at 20:30 Ondansetron HCl (Zofran Inj) 4 mg Q6H PRN IV NAUSEA/VOMITING; Start 06/03/18 at 20:30 Acetaminophen (Tylenol Tab) 650 mg Q6H PRN PO .PAIN 1-3 OR TEMP Last administered on 06/04/18at 09:02; Admin Dose 650 MG; Start 06/03/18 at 20:30 Docusate Sodium (Colace) 100 mg Q12H PRN PO .CONSTIPATION; Start 06/03/18 at 20:30 Bisacodyl (Dulcolax) 5 mg DAILY PRN PO .CONSTIPATION; Start 06/03/18 at 20:30 Atorvastatin Calcium (Lipitor) 40 mg QHS PO ; Start 06/04/18 at 21:00 Ferrous Sulfate (Ferrous Sulfate (Ec)) 325 mg BID PO Last administered on 06/04/18at 08:46; Admin Dose 325 MG; Start 06/04/18 at 09:00 Hydralazine HCl (Apresoline) 50 mg TID PO Last administered on 06/04/18at 08:46; Admin Dose 50 MG; Start 06/04/18 at 09:00 Tamsulosin HCl (Flomax) 0.4 mg HS PO ; Start 06/04/18 at 21:00 Amlodipine Besylate (Norvasc) 5 mg DAILY PO Last administered on 06/04/18at 08:46; Admin Dose 5 MG; Start 06/04/18 at 01:30 Hydralazine HCl (Apresoline) 10 mg Q4H PRN IV ELEVATED BLOOD PRESSURE Last administered on 06/04/18at 01:41; Admin Dose 10 MG; Start 06/04/18 at 01:30 Ceftriaxone Sodium 50 ml @ 100 mls/hr Q24H IVPB ; Start 06/04/18 at 20:00 Azithromycin 250 ml @ 250 mls/hr Q24H IVPB ; Start 06/04/18 at 20:00 Insulin Glargine (Lantus) 10 units HS SC ; Start 06/04/18 at 21:00 Diagnostic Test (Pha) (Accu-Chek) 1 ea 02 XX ; Start 06/05/18 at 02:00 Insulin Aspart (Novolog Insulin Pen) NOVOLOG *MILD* ALGORITHM WITH MEALS BEDTIME SC ; Start 06/04/18 at 08:30 Miscellaneous Information 1 ea NOTE XX ; Start 06/04/18 at 08:00 Glucose (Glutose) 15 gm Q15M PRN PO DECREASED GLUCOSE; Start 06/04/18 at 08:00 Glucose (Glutose) 22.5 gm Q15M PRN PO DECREASED GLUCOSE; Start 06/04/18 at 08:0 0 Dextrose (D50w Syringe) 25 ml Q15M PRN IV DECREASED GLUCOSE; Start 06/04/18 at 08:00 Dextrose (D50w Syringe) 50 ml Q15M PRN IV DECREASED GLUCOSE; Start 06/04/18 at 08:00 Glucagon (Glucagen) 1 mg Q15M PRN IM DECREASED GLUCOSE; Start 06/04/18 at 08:00 Glucose (Glutose) 15 gm Q15M PRN BUCCAL DECREASED GLUCOSE; Start 06/04/18 at 08:00 GIAN PONCE NP Jun 04, 2018 09:34
[2018-06-04] MEDS: METOPROLOL (XL) 25 MG TAB PO SCH (11:43)
[2018-06-04] MEDS: ERGOCALCIFEROL 50,000 UNIT CAP PO SCH (11:43)
--- NOTE | 2018-06-04 19:32 | CONS ---
DATE OF ADMISSION: 06/03/2018 DATE OF CONSULTATION: 06/04/2018 TYPE OF CONSULTATION: Cardiology. REASON FOR CONSULTATION: Increased BNP, shortness of breath, assess for congestive heart failure. REQUESTING PHYSICIAN: Alfredo Arias MD, from the hospitalist service and Chrissy Ponce NP. HISTORY OF PRESENT ILLNESS: Mr. 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 Upon arrival initially temperature of 96.5, blood pressure was markedly elevated 213/100, pulse 64, respiratory rate 25, satting 99%. The patient's labs were notable for a white blood cell count of 5, hemoglobin 10.6, platelet count 224, sodium of 145, potassium 4.5, creatinine 5.5, BUN 80, BNP of 65,000, free T4 within normal limits at 1.7, troponin negative. The patient underwent a chest x-ray and renal ultrasound. Chest x-ray revealed calcified aorta consistent with atherosclerotic disease, right lower lobe infiltrate, trace left pleural effusion, mild cardiomegaly, moderate right pleural effusion. The patient's renal ultrasound revealed echogenic kidneys consistent with medical renal disease, no evidence of hydronephrosis, moderately distended urinary bladder with moderate amount of debris. The patient's electrocardiogram revealed normal sinus rhythm, rate of 63 with normal axis and diffuse nonspecific ST and T abnormalities as well as lateral T-wave inversions. The patient subsequently was admitted to the floor and since admit to the floor, continues to have orthopnea, shortness of breath. Two further troponins returned negative, 3 negative troponins. The patient has had improvement in systolic blood pressure most recently in the 140s and has been placed on metoprolol and Procardia as well as hydralazine. PAST MEDICAL HISTORY: As above in HPI. MEDICATIONS CURRENTLY IN HOSPITAL: 1. Lipitor 40 mg at bedtime. 2. Flomax 0.4 mg at bedtime. 3. Lantus. 4. Ceftriaxone. 5. Azithromycin. 6. Procardia 30 mg p.o. b.i.d. 7. Toprol-XL 25 mg daily. 8. Ferrous sulfate. 9. Hydralazine 50 mg 3 times daily. 10. Insulin sliding scale. 11. Norvasc 5 mg daily. ALLERGIES: NO KNOWN DRUG ALLERGIES. SOCIAL HISTORY: No current tobacco, EtOH or illicit drug use. FAMILY HISTORY: No history of sudden cardiac or early CAD. REVIEW OF SYSTEMS: As above in HPI. CONSTITUTIONAL: No fevers, chills. PULMONARY: Positive shortness breath. CARDIOVASCULAR: Orthopnea, congestive heart failure. GASTROINTESTINAL: No vomiting. GENITOURINARY: Chronic kidney disease. PSYCHIATRIC: No documented psych history. NEUROLOGIC: No documented history of CVA. ENDOCRINE: Diabetes mellitus with complications. PHYSICAL EXAMINATION: VITAL SIGNS: Temperature 98.5, blood pressure 149/69, pulse 88, respiratory rate 19, satting 94%. GENERAL: The patient is alert, awake, in no acute distress. NECK: JVP is approximately 10 cm of water. CHEST: Decreased breath sounds at bases bilaterally. HEART: Regular rate and rhythm. Normal S1, S2, I/ systolic murmur, nondisplaced PMI. ABDOMEN: Positive bowel sounds, soft. EXTREMITIES: A 2 to 3+ edema, 1+ pulses bilaterally posterior tibial. LABORATORY DATA: Most recently from today, sodium 145, potassium 4.2, creatinine 5.4, BUN of 79. White blood cell count 6.6, hemoglobin 9.8, platelet count of 201. IMAGING STUDIES: As above in HPI. No further imaging studies for my review at this time. ELECTROCARDIOGRAM: As above in HPI. No further electrocardiograms for my review at this time. IMPRESSION: 1. Increased BNP and shortness of breath, assess for congestive heart failure. 2. Hypertension. 3. Dyslipidemia. 4. Abnormal electrocardiogram, assess for acute coronary syndrome, lateral T- wave inversions. 5. Renal failure, severe. 6. Diabetes mellitus. 7. Anemia. 8. Benign prostatic hypertrophy. 9. Possible urinary retention. RECOMMENDATIONS: 1. At this time, we would maintain the patient on telemetry monitoring to follow rhythm and rate control closely. 2. We will follow the patient's 2D echo to further assess ejection fraction, wall motion or major valve abnormalities. 3. We would initiate the patient on Lasix diuresis, following strict I's and O's and creatinine to grade diuresis closely with probably need for the patient to be initiated on hemodialysis as patient will comply. 4. We would continue the patient's antihypertensives with Procardia, Toprol and hydralazine with up titration as necessary to improve overall systolic blood pressure control. We will discontinue the patient's Norvasc as the patient is also on Procardia. 5. Check a fasting lipid panel for general stratification and adjust the patient's statin therapy as necessary. 6. Continue patient's antibiotics and follow up all culture data. 7. Ongoing nephrology evaluation and we would consider urology evaluation for possible urinary retention. Thank you for allowing me to take part in the care of this patient. I will continue to follow him very closely with you with further recommendations to be made as the patient progresses through his inpatient hospital clinical course. Dictated By: JAYCEE PITTS/JOSEPH Conf#: [id number] DID#: [id number] CC: DANGELO PERDUE MD; ALFREDO ARIAS MD; CHRISSY PONCE CARD TENDER;*EndCC* MTDD
--- NOTE | 2018-06-04 19:49 | RADRPT ---
Echocardiogram Report Patient Name: Ros BOSEnt ID: [id number] : 1960 (58y 2m)Study Date: 06/04/2018 7:19:38 AM Gender: MAccession #: [id number] Tech: Zahira Troncoso [facility] Location: [facility] Ref.Physician: ADELIA ARIAS Height(Cm): BSA: Weight(Kg): Quality: AdequateAccount #: Procedures: Echocardiographic Report: Transthoracic echocardiogram with complete 2D, M-Mode, and doppler examination. Indications: Volume overload. Measurements: 2D/M Mode Doppler Measurement Value Normal Range Measurement Value Normal Range LVIDd 2D 4.0 [ 4.2 - 5.8 ] cm AV Peak Lm 1.7 [ 100.0 - 170.0 ] cm/sec LVIDs 2D 3.0 [ 2.5 - 4.0 ] cm AV Peak PG 11.0 [ 2.0 - 9.0 ] mmHg LVPWd 2D 1.4 [ 0.6 - 1.0 ] cm LVOT Peak Lm 1.1 [ 70.0 - 110.0 ] cm/sec IVSd 2D 1.4 [ 0.6 - 1.0 ] cm LVOT Peak PG 4.0 [ 2.0 - 6.0 ] mmHg AoR Diam 2D 2.6 [ 2.6 - 3.4 ] cm MV E Peak Lm 0.9 [ 60.0 - 130.0 ] cm/sec EDV 2D 69.2 [ 62.0 - 150.0 ] ml MV A Peak Lm 1.0 [ 100.0 - 120.0 ] cm/sec ESV 2D 33.6 [ 21.0 - 61.0 ] ml MV E/A 0.9 [ 0.8 - 1.5 ] ratio EF 2D 51.4 [ 52.0 - 72.0 ] percent MV Decel Time 243 [ 104 - 258 ] msec LA Dimen 2D 3.8 [ 3.0 - 4.0 ] cm Lat E` Lm 0.0 [ 10.0 - 15.0 ] cm/sec Lateral E/E` 18.7 [ 1.0 - 2.0 ] ratio MV E/A 0.9 [ 0.8 - 1.5 ] ratio TR Peak Lm 3.5 [ 100.0 - 280.0 ] cm/sec TR Peak PG 48.0 mmHg RVSP 56.0 [ 10.0 - 36.0 ] mmHg RA Pressure 8.0 mmHg Findings: Left Ventricle: Normal left ventricular cavity size. Mild left ventricular systolic dysfunction. Ejection fraction is visually estimated at 40-45 %. Tissue Doppler/Mitral Doppler indices are consistent with impaired relaxation (Stage I diastolic dysfunction). Right Ventricle: Normal right ventricular size. Normal right ventricular systolic function. Left Atrium: The left atrium is normal in size. Right Atrium: The right atrium is normal in size. Mitral Valve: Mitral valve leaflets appear mildly thickened. Mild mitral annular calcification. Trace mitral regurgitation. Aortic Valve: Normal appearance of the aortic valve. No significant aortic stenosis or insufficiency. Tricuspid Valve: Normal appearance of the tricuspid valve. Estimated peak PA systolic pressure 56 mmHg. There is mild tricuspid regurgitation. Pulmonic Valve: Normal pulmonic valve appearance. There is trace pulmonic regurgitation. Pericardium: Small pericardial effusion. Left pleural effusion seen. Aorta: Normal aortic root. IVC: Normal size and no respiratory collapse consistent with elevated right atrial pressure. Conclusions: Normal left ventricular cavity size. Mild left ventricular systolic dysfunction. Ejection fraction is visually estimated at 40-45 %. Tissue Doppler/Mitral Doppler indices are consistent with impaired relaxation (Stage I diastolic dysfunction). Mitral valve leaflets appear mildly thickened. Mild mitral annular calcification. Trace mitral regurgitation. Normal appearance of the tricuspid valve. Estimated peak PA systolic pressure 56 mmHg. There is mild tricuspid regurgitation. Normal pulmonic valve appearance. There is trace pulmonic regurgitation. n. Small pericardial effusion. Left pleural effusion seen. Electronically Signed By: Mahendra Alicea 2018-06-04 19:47:34 PDT
[2018-06-04] MEDS: CEFTRIAXONE 1 GM/50 ML (PMX) 50 ML IVPB SCH (20:04)
[2018-06-04] MEDS: AZITHROMYCIN 500MG/NS (PMX) 250 ML IVPB SCH (20:04)
--- NOTE | 2018-06-04 20:10 | CONS ---
Assessment/Plan Assessment/Plan Hospital Course (Demo Recall) 58-year-old male with hypertension, diabetes, chronic kidney disease, and blindness presented with fluid overload. There was difficulty inserting a Abdi catheter initially but after that it was successful and the Abdi catheter is draining well. Therefore a urological consultation was requested. The patient went to his doctor and was sent to the ER for "retaining too much fluid". It st arted approximately 1 month ago according to him. He has had bilateral leg swelling that is worsening. He has kidney disease. His shortness of breath with laying down. He takes Lasix. He has left-sided chest pain that started the day before admission. The patient was seen and his and also his brother were at his bedside and they helped also with his history. Prior to admission he usually has nocturia 3-4 times. Daytime he voids every half hour. He denies any dysuria and the family states that there is no gross hematuria as the patient himself is blind and cannot see that. He states that his urinary stream is good and he feels he empties his bladder. Presently he does have a Abdi catheter that is draining clear urine. And he may well need it to monitor his urine output. We shall keep the Abdi catheter in and once it is not needed for monitoring the urine output we can DC it and see if he is able to urinate on his own. Continue his tamsulosin. I also did order earlier urine culture and that is pending. Consultation Date/Type/Reason Admit Date/Time Jun 03, 2018 at 19:20 Date of Consultation: Jun 04, 2018 Type of Consult Urology Reason for Consultation Question of urinary retention Requesting Provider: ADELIA ARIAS Date/Time of Note DATE: 06/04/18 TIME: 19:56 Hx of Present Illness 58-year-old male with hypertension, diabetes, chronic kidney disease, and blindness presented with fluid overload. There was difficulty inserting a Abdi catheter initially but after that it was successful and the Abdi catheter is draining well. Therefore a urological consultation was requested. The patient went to his doctor and was sent to the ER for "retaining too much fluid". It started approximately 1 month ago according to him. He has had bilateral leg swelling that is worsening. He has kidney disease. His shortness of breath with laying down. He takes Lasix. He has left-sided chest pain that started the day before admission. The patient was seen and his and also his brother were at his bedside and they helped also with his history. Prior to admission he usually has nocturia 3-4 times. Daytime he voids every half hour. He denies any dysuria and the family states that there is no gross hematuria as the patient himself is blind and cannot see that. He states that his urinary stream is good and he feels he empties his bladder. Constitutional: no complaints Eyes: other (The patient is blind he did have surgery on his right eye before.) ENT: no complaints, other (History of tracheostomy and G-tube placement over one year earlier when he was hospitalized at [facility].) Respiratory: shortness of breath (Laying down) Cardiovascular: chest pain (On admission) Gastrointestinal: No nausea, No vomiting Genitourinary: other (As per history of present illness) Musculoskeletal: no complaints Skin: no complaints Neurologic: no complaints Endocrine: polyuria (Diabetes for over 14 years) Psychological: no complaints Past Medical History Medical History: diabetes, high cholesterol, hypertension, renal disease Home Meds Reported Medications Epoetin Federico (Procrit) 10,000 Unit/1 Ml Vial, 67208 UNIT IJ Q1 WEEK, VIAL 06/03/18 Furosemide* (Furosemide*) 80 Mg Tablet, 80 MG PO BID, #60 TAB 06/03/18 Ferrous Sulfate* (Ferrous Sulfate*) 325 Mg Tabec, 325 MG PO BID, TAB 06/03/18 Glipizide* (Glipizide*) 10 Mg Tablet, 5 MG PO AC BREAKFAST DINNER, TAB 06/03/18 Insulin Glargine,Hum.rec.anlog (Basaglar Kwikpen U-100) 100 Unit/1 Ml Insuln.pen, 10 UNIT SC QHS, EA 06/03/18 Losartan Potassium* (Losartan Potassium*) 50 Mg Tablet, 50 MG PO DAILY, TAB 06/03/18 Atorvastatin* (Atorvastatin*) 40 Mg Tablet, 40 MG PO QHS, #30 TAB 06/03/18 Hydralazine Hcl* (Hydralazine Hcl*) 50 Mg Tab, 50 MG PO TID, #90 TAB 06/03/18 Tamsulosin Hcl* (Tamsulosin Hcl*) 0.4 Mg Cap.er.24h, 0.4 MG PO HS, CAP 3/21/19 Sitagliptin* (Januvia*) 100 Mg Tablet, 100 MG PO DAILY, #30 TAB 06/03/18 Discontinued Reported Medications Glipizide* (Glipizide*) 5 Mg Tablet, 5 MG PO AC BREAKFAST DINNER, TAB 06/03/18 [Ferrous Sulfate] No Conflict Check 01/29/18 [Glipizide] No Conflict Check 01/29/18 [Admelog Solostar] No Conflict Check 01/29/18 [Losartan] No Conflict Check 01/29/18 [Atorvastatin] No Conflict Check 01/29/18 [Hydralazine] No Conflict Check 01/29/18 [Albuterol Sulfate] No Conflict Check 01/29/18 [Furosemide] No Conflict Check 01/29/18 [Tamsulosin] No Conflict Check 01/29/18 Medications Current Medications Nitroglycerin (Nitroglycerin (Sl Tab) 0.4 Mg) 1 tab Q5M UP TO 3 DOSES PRN SL .CHEST PAIN; Start 06/03/18 at 17:00 IV Flush (NS 3 ml) 3 ml PER PROTOCOL IV ; Start 06/03/18 at 20:30 Ondansetron HCl (Zofran Inj) 4 mg Q6H PRN IV NAUSEA/VOMITING; Start 06/03/18 at 20:30 Acetaminophen (Tylenol Tab) 650 mg Q6H PRN PO .PAIN 1-3 OR TEMP Last administered on 06/04/18at 09:02; Admin Dose 650 MG; Start 06/03/18 at 20:30 Docusate Sodium (Colace) 100 mg Q12H PRN PO .CONSTIPATION; Start 06/03/18 at 20:30 Bisacodyl (Dulcolax) 5 mg DAILY PRN PO .CONSTIPATION; Start 06/03/18 at 20:30 Atorvastatin Calcium (Lipitor) 40 mg QHS PO ; Start 06/04/18 at 21:00 Ferrous Sulfate (Ferrous Sulfate (Ec)) 325 mg BID PO Last administered on 06/04/18at 08:46; Admin Dose 325 MG; Start 06/04/18 at 09:00 Hydralazine HCl (Apresoline) 50 mg TID PO Last administered on 06/04/18at 13:14; Admin Dose 50 MG; Start 06/04/18 at 09:00 Tamsulosin HCl (Flomax) 0.4 mg HS PO ; Start 06/04/18 at 21:00 Hydralazine HCl (Apresoline) 10 mg Q4H PRN IV ELEVATED BLOOD PRESSURE Last administered on 06/04/18at 01:41; Admin Dose 10 MG; Start 06/04/18 at 01:30 Ceftriaxone Sodium 50 ml @ 100 mls/hr Q24H IVPB ; Start 06/04/18 at 20:00 Azithromycin 250 ml @ 250 mls/hr Q24H IVPB ; Start 06/04/18 at 20:00 Insulin Glargine (Lantus) 10 units HS SC ; Start 06/04/18 at 21:00 Diagnostic Test (Pha) (Accu-Chek) 1 ea 02 XX ; Start 06/05/18 at 02:00 Insulin Aspart (Novolog Insulin Pen) NOVOLOG *MILD* ALGORITHM WITH MEALS BEDTIME SC ; Start 06/04/18 at 08:30 Miscellaneous Information 1 ea NOTE XX ; Start 06/04/18 at 08:00 Glucose (Glutose) 15 gm Q15M PRN PO DECREASED GLUCOSE; Start 06/04/18 at 08:00 Glucose (Glutose) 22.5 gm Q15M PRN PO DECREASED GLUCOSE; Start 06/04/18 at 08:00 Dextrose (D50w Syringe) 25 ml Q15M PRN IV DECREASED GLUCOSE; Start 06/04/18 at 08:00 Dextrose (D50w Syringe) 50 ml Q15M PRN IV DECREASED GLUCOSE; Start 06/04/18 at 08:00 Glucagon (Glucagen) 1 mg Q15M PRN IM DECREASED GLUCOSE; Start 06/04/18 at 08:00 Glucose (Glutose) 15 gm Q15M PRN BUCCAL DECREASED GLUCOSE; Start 06/04/18 at 08:00 Metoprolol Succinate (Toprol Xl) 25 mg DAILY PO Last administered on 06/04/18at 11:43; Admin Dose 25 MG; Start 06/04/18 at 09:30 Ergocalciferol (Drisdol) 50,000 unit Fr@09 PO Last administered on 06/04/18at 11:43; Admin Dose 50,000 UNIT; Start 06/04/18 at 11:00 Nifedipine (Procardia Xl) 60 mg AM PO ; Start 06/05/18 at 09:00 Nifedipine (Procardia Xl) 30 mg HS PO ; Start 06/04/18 at 21:00 Allergies: Coded Allergies: No Known Allergy (Unverified , 06/03/18) Past Surgical History Past Surgical Hx: appendectomy, other (Tracheostomy and G-tube placement. Both were temporary) Social History Alcohol Use: none Smoking Status: Never smoker Drug Use: none Exam/Review of Systems Exam Vitals Vital Signs Date Temp Pulse Resp B/P (MAP) Pulse Ox O2 O2 Flow FiO2 Time Delivery Rate 06/04/18 98.1 64 18 158/74 93 19:34 (102) 06/03/18 Room Air 19:32 Intake and Output 06/03/18 06/03/18 06/04/18 1414:59 22:59 06:59 IntakeIntake Total 300 ml 200 ml OutputOutput Total 575 ml BalanceBalance 300 ml -375 ml Constitutional: alert, oriented Psych: no complaints Eyes: other (Blind) ENMT: nl external ears & nose Neck: other (Scar from tracheostomy) Respiratory: normal air movement; No wheezing Cardiovascular: No jugular venous distention (JVD) Gastrointestinal: soft, surgical scars, other (There is a mass right side of abdomen lateral to the scar from the appendectomy) Genitourinary - Male: nl penis, nl scrotum, other (Rectal exam prostate is soft and mildly enlarged) Extremities: edema; No calf tenderness Neurological: nl mental status Skin: nl turgor Results Result Diagram: 06/04/18 0600 06/04/18 0601 Results 24hrs Laboratory Tests Test 06/03/18 19:58 06/03/18 21:35 06/03/18 21:52 06/03/18 23:30 Sodium Level 146 H Potassium Level 4.9 Chloride Level 106 Carbon Dioxide 26 Level Anion Gap 14 H Blood Urea 80 H Nitrogen Creatinine 5.29 H Glucose Level 152 Lactic Acid Level 0.8 Calcium Level 8.8 Phosphorus Level 6.1 H Albumin 4.0 Bedside Glucose 120 Creatine Kinase 216 H Creatine Kinase 1.7 Index Creatinine Kinase 3.63 H MB (Mass) Troponin I 0.026 Urine Color YELLOW Urine Clarity CLEAR Urine pH 5.0 Urine Specific 1.013 [place] Urine Ketones NEGATIVE Urine Nitrite NEGATIVE Urine Bilirubin NEGATIVE Urine NEGATIVE Urobilinogen Urine Leukocyte NEGATIVE Esterase Urine Microscopic 14 H RBC Urine Microscopic 1 WBC Urine Bacteria FEW A Urine Hemoglobin 1+ H Urine Random 97 H Sodium Urine Glucose 2+ H Urine Total 3+ H Protein Test 06/04/18 05:54 06/04/18 06:00 06/04/18 06:01 06/04/18 08:23 Hemoglobin A1c 6.5 H 6.5 H White Blood Count 6.6 # Red Blood Count 3.59 L Hemoglobin 9.8 L Hematocrit 31.7 L Mean Corpuscular 88.3 Volume Mean Corpuscular 27.3 L Hemoglobin Mean Corpuscular 30.9 L Hemoglobin Concen t Red Cell 16.1 H Distribution Width Platelet Count 201 Mean Platelet 9.0 Volume Immature 0.500 H Granulocytes % Neutrophils % 80.1 H Lymphocytes % 7.1 L Monocytes % 8.8 Eosinophils % 2.6 Basophils % 0.9 Nucleated Red 0.0 Blood Cells % Immature 0.030 Granulocytes # Neutrophils # 5.3 Lymphocytes # 0.5 L Monocytes # 0.6 Eosinophils # 0.2 Basophils # 0.1 Nucleated Red 0.0 Blood Cells # Creatine Kinase 192 Creatine Kinase 1.9 Index Creatinine Kinase 3.63 H MB (Mass) Troponin I 0.032 Prostate Specific 2.6 Antigen Vitamin D 15.0 L 1,25-Dihydroxy Hepatitis B NEGATIVE Surface Antigen Hepatitis B NEGATIVE Surface Antibody Hepatitis B Core NEGATIVE Total Antibody Hepatitis C NEGATIVE Antibody Sodium Level 145 H Potassium Level 4.2 Chloride Level 108 Carbon Dioxide 24 Level Anion Gap 13 Blood Urea 79 H Nitrogen Creatinine 5.41 H Est Glomerular 11 L Filtrat Rate mL/min Glucose Level 125 Calcium Level 8.3 L Magnesium Level 2.2 Total Bilirubin 0.1 L Direct Bilirubin 0.00 Indirect 0.1 Bilirubin Aspartate Amino 16 Transf (AST/SGOT) Alanine 23 Aminotransferase (ALT/SGPT) Alkaline 111 Phosphatase Total Protein 6.4 Albumin 3.6 Globulin 2.80 Albumin/Globulin 1.28 Ratio Triglycerides 104 Level Cholesterol Level 143 LDL Cholesterol, 84 Calculated HDL Cholesterol 38 Cholesterol/HDL 3.7 Ratio Thyroid 8.940 H Stimulating Hormone (TSH) Bedside Glucose 121 Test 06/04/18 09:47 06/04/18 09:48 06/04/18 11:37 06/04/18 14:18 B-Type 97612 H Natriuretic Peptide Free Thyroxine 1.70 Bedside Glucose 134 Urine Color YELLOW Urine Clarity SLIGHTLY CLOUDY A Urine pH 5.0 Urine Specific 1.012 [place] Urine Ketones NEGATIVE Urine Nitrite NEGATIVE Urine Bilirubin NEGATIVE Urine NEGATIVE Urobilinogen Urine Leukocyte TRACE A Esterase Urine Microscopic 169 H RBC Urine Microscopic 11 H WBC Urine Mucus FEW A Urine Yeast FEW A (Budding) Urine Hemoglobin 2+ H Urine Random 64.07 Creatinine Urine Random 109 H Sodium Urine Glucose 1+ H Urine Total 451.0 H Protein Test 06/04/18 17:25 Bedside Glucose 126 Imaging Imaging Renal ultrasound: Echogenic kidneys, consistent with medical renal disease. No evidence of hydronephrosis. Moderately distended urinary bladder with a moderate amount of layering debr Medications Medication Current Medications Nitroglycerin (Nitroglycerin (Sl Tab) 0.4 Mg) 1 tab Q5M UP TO 3 DOSES PRN SL .CHEST PAIN; Start 06/03/18 at 17:00 IV Flush (NS 3 ml) 3 ml PER PROTOCOL IV ; Start 06/03/18 at 20:30 Ondansetron HCl (Zofran Inj) 4 mg Q6H PRN IV NAUSEA/VOMITING; Start 06/03/18 at 20:30 Acetaminophen (Tylenol Tab) 650 mg Q6H PRN PO .PAIN 1-3 OR TEMP Last administered on 06/04/18at 09:02; Admin Dose 650 MG; Start 06/03/18 at 20:30 Docusate Sodium (Colace) 100 mg Q12H PRN PO .CONSTIPATION; Start 06/03/18 at 20:30 Bisacodyl (Dulcolax) 5 mg DAILY PRN PO .CONSTIPATION; Start 06/03/18 at 20:30 Atorvastatin Calcium (Lipitor) 40 mg QHS PO ; Start 06/04/18 at 21:00 Ferrous Sulfate (Ferrous Sulfate (Ec)) 325 mg BID PO Last administered on 06/04/18at 08:46; Admin Dose 325 MG; Start 06/04/18 at 09:00 Hydralazine HCl (Apresoline) 50 mg TID PO Last administered on 06/04/18at 13:14; Admin Dose 50 MG; Start 06/04/18 at 09:00 Tamsulosin HCl (Flomax) 0.4 mg HS PO ; Start 06/04/18 at 21:00 Hydralazine HCl (Apresoline) 10 mg Q4H PRN IV ELEVATED BLOOD PRESSURE Last administered on 06/04/18at 01:41; Admin Dose 10 MG; Start 06/04/18 at 01:30 Ceftriaxone Sodium 50 ml @ 100 mls/hr Q24H IVPB ; Start 06/04/18 at 20:00 Azithromycin 250 ml @ 250 mls/hr Q24H IVPB ; Start 06/04/18 at 20:00 Insulin Glargine (Lantus) 10 units HS SC ; Start 06/04/18 at 21:00 Diagnostic Test (Pha) (Accu-Chek) 1 ea 02 XX ; Start 06/05/18 at 02:00 Insulin Aspart (Novolog Insulin Pen) NOVOLOG *MILD* ALGORITHM WITH MEALS BEDTIME SC ; Start 06/04/18 at 08:30 Miscellaneous Information 1 ea NOTE XX ; Start 06/04/18 at 08:00 Glucose (Glutose) 15 gm Q15M PRN PO DECREASED GLUCOSE; Start 06/04/18 at 08:00 Glucose (Glutose) 22.5 gm Q15M PRN PO DECREASED GLUCOSE; Start 06/04/18 at 08:00 Dextrose (D50w Syringe) 25 ml Q15M PRN IV DECREASED GLUCOSE; Start 06/04/18 at 08:00 Dextrose (D50w Syringe) 50 ml Q15M PRN IV DECREASED GLUCOSE; Start 06/04/18 at 08:00 Glucagon (Glucagen) 1 mg Q15M PRN IM DECREASED GLUCOSE; Start 06/04/18 at 08:00 Glucose (Glutose) 15 gm Q15M PRN BUCCAL DECREASED GLUCOSE; Start 06/04/18 at 08:00 Metoprolol Succinate (Toprol Xl) 25 mg DAILY PO Last administered on 06/04/18at 11:43; Admin Dose 25 MG; Start 06/04/18 at 09:30 Ergocalciferol (Drisdol) 50,000 unit Fr@09 PO Last administered on 06/04/18at 11:43; Admin Dose 50,000 UNIT; Start 06/04/18 at 11:00 Nifedipine (Procardia Xl) 60 mg AM PO ; Start 06/05/18 at 09:00 Nifedipine (Procardia Xl) 30 mg HS PO ; Start 06/04/18 at 21:00 DANGELO PERDUE MD Jun 04, 2018 20:08
[2018-06-04] MEDS ORDERED: INSULIN GLARGINE [LANtus] 3 ML PEN SC SCH (21:00)
[2018-06-04] MEDS: NIFEdipine (XL) 30 MG TAB PO SCH (21:11)
[2018-06-04] MEDS: TAMSULOSIN (SR) 0.4 MG CAP PO SCH (21:11)
[2018-06-04] MEDS: ATORVASTATIN 40 MG TAB PO SCH (21:11)
[2018-06-04] MEDS: INSULIN GLARGINE [LANTus] (100 UNITS/ML) SYG SC SCH (21:15)
[2018-06-05] VITALS (11 sets, daily range): BP systolic 117–152; BP diastolic 56–79; PULSE 64–80; RESP 16–19
[2018-06-05] MEDS: ACCU-CHEK XX SCH (02:00)
[2018-06-05] MEDS: INSULIN ASPART [NOVOLOG] 3 ML PEN SC SCH ×4 (08:00→20:51)
[2018-06-05] MEDS: NIFEdipine (XL) 60 MG TAB PO SCH (08:18)
[2018-06-05] MEDS: METOPROLOL (XL) 25 MG TAB PO SCH (08:19)
[2018-06-05] MEDS: FERROUS SULFATE (EC) 325 MG TAB PO SCH ×2 (08:19→20:39)
--- NOTE | 2018-06-05 09:22 | PN ---
DATE: 06/05/2018 SUBJECTIVE: Overnight the patient was stable, had minimal urinary output. Please note I spoke in de tail with the patient's son yesterday regarding his father's likely need for renal replacement therap y. The patient's son said that he would speak with his father and his family over the next 1 to 2 da ys to make a determination if they wish to proceed with dialysis. OBJECTIVE: VITAL SIGNS: Blood pressure is 145/70, respirations 21, pulse 66, temperature 98.4. HEENT: Head is normocephalic. NECK: Supple. HEART: Regular rate. LUNGS: Show diminished breath sounds at the base. ABDOMEN: Soft, nontender to palpation without rebound or guarding. EXTREMITIES: Negative for clubbing, cyanosis, no edema. DERMATOLOGIC: No rashes. MUSCULOSKELETAL: No joint effusion. NEUROLOGIC: No change in exam. MEDICATIONS: Reviewed. LABORATORY DATA: From 06/05/2018 shows sodium 146, BUN 81, creatinine 5.73. White count 4.3, hemogl obin 9.4, platelet count is 222. ASSESSMENT AND PLAN: 1. Chronic kidney disease stage III/IV with likely progression towards end-stage renal disease. The possibility of superimposed acute kidney injury is a consideration. The patient's urinalysis was re viewed, no active sediment. The patient does have nephrotic range proteinuria. Per the patient's fa mirian, he has underlying chronic kidney disease stage III or IV as diagnosed last year. At this point , the patient has signs of uremia and a recommendation has been made for renal replacement therapy. As stated above, the patient's family will discuss the possibility of hemodialysis and will inform me in the next 1 to 2 days. We would otherwise continue medical management. Continue diuretic therapy , continue renally dose all medicines and avoid nephrotoxins. 2. Hypernatremia. Encourage free water intake. 3. Anemia. Monitor hemoglobin and hematocrit levels. We will give Epogen. 4. Mineral bone disorder, monitor calcium and phosphorus levels. Start the patient phosphate binder s. 5. Volume overload, likely due to end-stage renal disease. Continue current diuretic regimen. Foll ow up 2D echo. 6. Hypertension. Continue current blood pressure regimen. 7. Pneumonia. Continue current antibiotic therapy. 8. Diabetes. Continue current insulin regimen. 9. Dyslipidemia. Continue statin therapy. 10. 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 Continue to monitor. Dictated By: PEPITO KASPER/JOSEPH Conf#: [id number] DID#: [id number] CC: DANGELO PERDUE MD; ADELIA ARIAS MD;*End*
[2018-06-05] MEDS: SEVELAMER CARBONATE 800 MG TABLET PO SCH ×3 (09:36→17:25)
--- NOTE | 2018-06-05 13:13 | CONS ---
Consult Date/Type/Reason Admit Date/Time Jun 03, 2018 at 19:20 Initial Consult Date 06/04/18 Type of Consultation: Urology Reason for Consultation Urinary retention Requesting Provider: ADELIA ARIAS Date/Time of Note DATE: 06/05/18 TIME: 13:09 Subjective Patient is comfortable. Objective Vitals Vital Signs Date Temp Pulse Resp B/P (MAP) Pulse Ox O2 O2 Flow FiO2 Time Delivery Rate 06/05/18 67 12:20 06/05/18 98.4 18 150/71 90 11:13 (97) 06/05/18 2.0 03:35 06/03/18 Room Air 19:32 Intake and Output 06/04/18 06/04/18 06/05/18 1515:00 23:00 07:00 IntakeIntake Total 850 ml 250 ml OutputOutput Total 500 ml 500 ml BalanceBalance 350 ml -250 ml Exam The Abdi catheter is draining clear urine. The urine output is low about 500 mL Results/Medications Result Diagram: 06/05/18 0514 06/05/18 0514 Results 24 hrs Laboratory Tests Test 06/04/18 14:18 06/04/18 17:25 06/04/18 20:29 06/05/18 05:14 Urine Color YELLOW Urine Clarity SLIGHTLY CLOUDY A Urine pH 5.0 Urine Specific 1.012 [place] Urine Ketones NEGATIVE Urine Nitrite NEGATIVE Urine Bilirubin NEGATIVE Urine NEGATIVE Urobilinogen Urine Leukocyte TRACE A Esterase Urine Microscopic 169 H RBC Urine Microscopic 11 H WBC Urine Mucus FEW A Urine Yeast FEW A (Budding) Urine Hemoglobin 2+ H Urine Random 64.07 Creatinine Urine Random 109 H Sodium Urine Glucose 1+ H Urine Total 451.0 H Protein Bedside Glucose 126 182 White Blood Count 4.3 #L Red Blood Count 3.46 L Hemoglobin 9.4 L Hematocrit 30.8 L Mean Corpuscular 89.0 Volume Mean Corpuscular 27.2 L Hemoglobin Mean Corpuscular 30.5 L Hemoglobin Concen t Red Cell 16.3 H Distribution Width Platelet Count 222 Mean Platelet 10.2 Volume Immature 0.200 Granulocytes % Neutrophils % 76.0 Lymphocytes % 11.2 L Monocytes % 9.1 Eosinophils % 2.3 Basophils % 1.2 Nucleated Red 0.0 Blood Cells % Immature 0.010 Granulocytes # Neutrophils # 3.3 Lymphocytes # 0.5 L Monocytes # 0.4 Eosinophils # 0.1 Basophils # 0.1 Nucleated Red 0.0 Blood Cells # Sodium Level 146 H Potassium Level 4.0 Chloride Level 107 Carbon Dioxide 25 Level Anion Gap 14 H Blood Urea 81 H Nitrogen Creatinine 5.73 H Est Glomerular 10 L Filtrat Rate mL/min Glucose Level 62 #L Calcium Level 8.1 L Phosphorus Level 6.2 H Magnesium Level 2.3 Creatine Kinase 141 Creatine Kinase 2.2 Index Creatinine Kinase 3.06 H MB (Mass) Troponin I 0.038 Triglycerides 87 Level Cholesterol Level 131 LDL Cholesterol, 78 Calculated HDL Cholesterol 36 Cholesterol/HDL 3.6 Ratio Test 06/05/18 08:05 06/05/18 08:55 06/05/18 11:37 Bedside Glucose 43 *L 151 166 Home Meds Reported Medications Epoetin Federico (Procrit) 10,000 Unit/1 Ml Vial, 08863 UNIT IJ Q1 WEEK, VIAL 06/03/18 Furosemide* (Furosemide*) 80 Mg Tablet, 80 MG PO BID, #60 TAB 06/03/18 Ferrous Sulfate* (Ferrous Sulfate*) 325 Mg Tabec, 325 MG PO BID, TAB 06/03/18 Glipizide* (Glipizide*) 10 Mg Tablet, 5 MG PO AC BREAKFAST DINNER, TAB 06/03/18 Insulin Glargine,Hum.rec.anlog (Basaglar Kwclydepen U-100) 100 Unit/1 Ml Insuln.pen, 10 UNIT SC QHS, EA 06/03/18 Losartan Potassium* (Losartan Potassium*) 50 Mg Tablet, 50 MG PO DAILY, TAB 06/03/18 Atorvastatin* (Atorvastatin*) 40 Mg Tablet, 40 MG PO QHS, #30 TAB 06/03/18 Hydralazine Hcl* (Hydralazine Hcl*) 50 Mg Tab, 50 MG PO TID, #90 TAB 06/03/18 Tamsulosin Hcl* (Tamsulosin Hcl*) 0.4 Mg Cap.er.24h, 0.4 MG PO HS, CAP 06/03/18 Sitagliptin* (Januvia*) 100 Mg Tablet, 100 MG PO DAILY, #30 TAB 06/03/18 Discontinued Reported Medications Glipizide* (Glipizide*) 5 Mg Tablet, 5 MG PO AC BREAKFAST DINNER, TAB 06/03/18 [Ferrous Sulfate] No Conflict Check 01/29/18 [Glipizide] No Conflict Check 01/29/18 [Admelog Solostar] No Conflict Check 01/29/18 [Losartan] No Conflict Check 01/29/18 [Atorvastatin] No Conflict Check 01/29/18 [Hydralazine] No Conflict Check 01/29/18 [Albuterol Sulfate] No Conflict Check 01/29/18 [Furosemide] No Conflict Check 01/29/18 [Tamsulosin] No Conflict Check 01/29/18 Medications Current Medications Nitroglycerin (Nitroglycerin (Sl Tab) 0.4 Mg) 1 tab Q5M UP TO 3 DOSES PRN SL .CHEST PAIN; Start 06/03/18 at 17:00 IV Flush (NS 3 ml) 3 ml PER PROTOCOL IV ; Start 06/03/18 at 20:30 Ondansetron HCl (Zofran Inj) 4 mg Q6H PRN IV NAUSEA/VOMITING; Start 06/03/18 at 20:30 Acetaminophen (Tylenol Tab) 650 mg Q6H PRN PO .PAIN 1-3 OR TEMP Last administered on 06/04/18at 09:02; Admin Dose 650 MG; Start 06/03/18 at 20:30 Docusate Sodium (Colace) 100 mg Q12H PRN PO .CONSTIPATION; Start 06/03/18 at 20:30 Bisacodyl (Dulcolax) 5 mg DAILY PRN PO .CONSTIPATION; Start 06/03/18 at 20:30 Atorvastatin Calcium (Lipitor) 40 mg QHS PO Last administered on 06/04/18at 21:11; Admin Dose 40 MG; Start 06/04/18 at 21:00 Ferrous Sulfate (Ferrous Sulfate (Ec)) 325 mg BID PO Last administered on 06/05/18 08:19; Admin Dose 325 MG; Start 06/04/18 at 09:00 Hydralazine HCl (Apresoline) 50 mg TID PO Last administered on 06/05/18at 12:11; Admin Dose 50 MG; Start 06/04/18 at 09:00 Tamsulosin HCl (Flomax) 0.4 mg HS PO Last administered on 06/04/18at 21:11; Admin Dose 0.4 MG; Start 06/04/18 at 21:00 Hydralazine HCl (Apresoline) 10 mg Q4H PRN IV ELEVATED BLOOD PRESSURE Last administered on 06/04/18at 01:41; Admin Dose 10 MG; Start 06/04/18 at 01:30 Ceftriaxone Sodium 50 ml @ 100 mls/hr Q24H IVPB Last administered on 06/04/18at 20:04; Admin Dose 100 MLS/HR; Start 06/04/18 at 20:00 Azithromycin 250 ml @ 250 mls/hr Q24H IVPB Last administered on 06/04/18at 20:04; Admin Dose 250 MLS/HR; Start 06/04/18 at 20:00 Insulin Glargine (Lantus) 10 units HS SC Last administered on 06/04/18at 21:15; Admin Dose 10 UNITS; Start 06/04/18 at 21:00 Diagnostic Test (Pha) (Accu-Chek) 1 ea 02 XX ; Start 06/05/18 at 02:00 Insulin Aspart (Novolog Insulin Pen) NOVOLOG *MILD* ALGORITHM WITH MEALS BEDTIME SC ; Start 06/04/18 at 08:30 Miscellaneous Information 1 ea NOTE XX ; Start 06/04/18 at 08:00 Glucose (Glutose) 15 gm Q15M PRN PO DECREASED GLUCOSE; Start 06/04/18 at 08:00 Glucose (Glutose) 22.5 gm Q15M PRN PO DECREASED GLUCOSE; Start 06/04/18 at 08:00 Dextrose (D50w Syringe) 25 ml Q15M PRN IV DECREASED GLUCOSE; Start 06/04/18 at 08:00 Dextrose (D50w Syringe) 50 ml Q15M PRN IV DECREASED GLUCOSE Last administered on 06/05/18at 08:20; Admin Dose 50 ML; Start 06/04/18 at 08:00 Glucagon (Glucagen) 1 mg Q15M PRN IM DECREASED GLUCOSE; Start 06/04/18 at 08:00 Glucose (Glutose) 15 gm Q15M PRN BUCCAL DECREASED GLUCOSE; Start 06/04/18 at 08:00 Metoprolol Succinate (Toprol Xl) 25 mg DAILY PO Last administered on 06/05/18at 08:19; Admin Dose 25 MG; Start 06/04/18 at 09:30 Ergocalciferol (Drisdol) 50,000 unit Fr@09 PO Last administered on 06/04/18at 11:43; Admin Dose 50,000 UNIT; Start 06/04/18 at 11:00 Nifedipine (Procardia Xl) 60 mg AM PO Last administered on 06/05/18at 08:18; Admin Dose 60 MG; Start 06/05/18 at 09:00 Nifedipine (Procardia Xl) 30 mg HS PO Last administered on 06/04/18at 21:11; Admin Dose 30 MG; Start 06/04/18 at 21:00 Sevelamer Carbonate (Renvela) 800 mg WITH MEALS PO Last administered on 06/05/18at 11:52; Admin Dose 800 MG; Start 06/05/18 at 08:30 Assessment/Plan Hospital Course (Demo Recall) 58-year-old male with hypertension, diabetes, chronic kidney disease, and blindness presented with fluid overload. There was difficulty inserting a Abdi catheter initially but after that it was successful and the Abdi catheter is draining well. Therefore a urological consultation was requested. The patient went to his doctor and was sent to the ER for "retaining too much fluid". It started approximately 1 month ago according to him. He has had bilateral leg swelling that is worsening. He has kidney disease. His shortness of breath with laying down. He takes Lasix. He has left-sided chest pain that started the day before admission. The patient was seen and his and also his bro ther were at his bedside and they helped also with his history. Prior to admission he usually has nocturia 3-4 times. Daytime he voids every half hour. He denies any dysuria and the family states that there is no gross hematuria as the patient himself is blind and cannot see that. He states that his urinary stream is good and he feels he empties his bladder. Presently he does have a Abdi catheter that is draining clear urine. And he may well need it to monitor his urine output. We shall keep the Abdi catheter in and once it is not needed for monitoring the urine output we can DC it and see if he is able to urinate on his own. His urine output was about 500 mL. Urine culture no growth in 24 hours. Continue his tamsulosin DANGELO PERDUE MD Jun 05, 2018 13:13
--- NOTE | 2018-06-05 13:42 | PN ---
Date/Time of Note Date/Time of Note DATE: 06/05/18 TIME: 13:40 Assessment/Plan VTE Prophylaxis Risk score (from Ns)>0 risk: 3 SCD applied (from Ns): No SCD contraindicated: low risk/ambulating Pharmacological prophylaxis: heparin Lines/Catheters IV [facility]from [facility] [place] Urinary Cath still in place: Yes Reason Cath still needed: urinary retention Assessment/Plan Problems: (1) End-stage renal disease needing dialysis Status: Acute Comment: Gentleman has history of chronic kidney disease but he has progressed. I am in agreement with nephrology that given that he has not improved his renal function after a few days of aggressive treatment that he is going to need dialysis. We will start working on that process (2) Benign prostatic hyperplasia with lower urinary tract symptoms Status: Chronic Comment: He has a Abdi catheter in and is on treatment. Qualifiers: Lower urinary tract symptom detail: urinary hesitancy Qualified Codes: N40.1 - Benign prostatic hyperplasia with lower urinary tract symptoms; R39.11 - Hesitancy of micturition (3) Diabetes mellitus type 2 in nonobese Status: Chronic Comment: This is stable. Please note that this is the cause of the end-stage renal disease. He also has diabetic retinopathy to go along with this as opposed to frequently go together (4) Essential hypertension Status: Chronic Comment: Adequate control (5) Vitamin D deficiency Status: Chronic Comment: Replace. (6) Hyperlipidemia associated with type 2 diabetes mellitus Status: Chronic Comment: On statin therapy. Result Diagram: 06/05/18 0514 06/05/18 0514 Results 24hrs Laboratory Tests Test 06/04/18 14:18 06/04/18 17:25 06/04/18 20:29 06/05/18 05:14 Urine Color YELLOW Urine Clarity SLIGHTLY CLOUDY A Urine pH 5.0 Urine Specific 1.012 [place] Urine Ketones NEGATIVE Urine Nitrite NEGATIVE Urine Bilirubin NEGATIVE Urine NEGATIVE Urobilinogen Urine Leukocyte TRACE A Esterase Urine Microscopic 169 H RBC Urine Microscopic 11 H WBC Urine Mucus FEW A Urine Yeast FEW A (Budding) Urine Hemoglobin 2+ H Urine Random 64.07 Creatinine Urine Random 109 H Sodium Urine Glucose 1+ H Urine Total 451.0 H Protein Bedside Glucose 126 182 White Blood Count 4.3 #L Red Blood Count 3.46 L Hemoglobin 9.4 L Hematocrit 30.8 L Mean Corpuscular 89.0 Volume Mean Corpuscular 27.2 L Hemoglobin Mean Corpuscular 30.5 L Hemoglobin Concen t Red Cell 16.3 H Distribution Width Platelet Count 222 Mean Platelet 10.2 Volume Immature 0.200 Granulocytes % Neutrophils % 76.0 Lymphocytes % 11.2 L Monocytes % 9.1 Eosinophils % 2.3 Basophils % 1.2 Nucleated Red 0.0 Blood Cells % Immature 0.010 Granulocytes # Neutrophils # 3.3 Lymphocytes # 0.5 L Monocytes # 0.4 Eosinophils # 0.1 Basophils # 0.1 Nucleated Red 0.0 Blood Cells # Sodium Level 146 H Potassium Level 4.0 Chloride Level 107 Carbon Dioxide 25 Level Anion Gap 14 H Blood Urea 81 H Nitrogen Creatinine 5.73 H Est Glomerular 10 L Filtrat Rate mL/min Glucose Level 62 #L Calcium Level 8.1 L Phosphorus Level 6.2 H Magnesium Level 2.3 Creatine Kinase 141 Creatine Kinase 2.2 Index Creatinine Kinase 3.06 H MB (Mass) Troponin I 0.038 Triglycerides 87 Level Cholesterol Level 131 LDL Cholesterol, 78 Calculated HDL Cholesterol 36 Cholesterol/HDL 3.6 Ratio Test 06/05/18 08:05 06/05/18 08:55 06/05/18 11:37 Bedside Glucose 43 *L 151 166 Subjective 24 Hr Interval Summary Free Text/Dictation Patient reports he is feeling a little bit better. Constitutional: no complaints Respiratory: no complaints Cardiovascular: no complaints Gastrointestinal: no complaints Exam/Review of Systems Exam Vitals Vital Signs Date Temp Pulse Resp B/P (MAP) Pulse Ox O2 O2 Flow FiO2 Time Delivery Rate 06/05/18 67 12:20 06/05/18 98.4 18 150/71 90 11:13 (97) 06/05/18 2.0 03:35 06/03/18 Room Air 19:32 Intake and Output 06/04/18 06/04/18 06/05/18 1515:00 23:00 07:00 IntakeIntake Total 850 ml 250 ml OutputOutput Total 500 ml 500 ml BalanceBalance 350 ml -250 ml Exam Somewhat hard of hearing Constitutional: alert, oriented Neck: supple, non-tender Respiratory: clear to auscultation, normal air movement Cardiovascular: regular rate and rhythm, nl pulses Results Results 24hrs Laboratory Tests Test 06/04/18 14:18 06/04/18 17:25 06/04/18 20:29 06/05/18 05:14 Urine Color YELLOW Urine Clarity SLIGHTLY CLOUDY A Urine pH 5.0 Urine Specific 1.012 [place] Urine Ketones NEGATIVE Urine Nitrite NEGATIVE Urine Bilirubin NEGATIVE Urine NEGATIVE Urobilinogen Urine Leukocyte TRACE A Esterase Urine Microscopic 169 H RBC Urine Microscopic 11 H WBC Urine Mucus FEW A Urine Yeast FEW A (Budding) Urine Hemoglobin 2+ H Urine Random 64.07 Creatinine Urine Random 109 H Sodium Urine Glucose 1+ H Urine Total 451.0 H Protein Bedside Glucose 126 182 White Blood Count 4.3 #L Red Blood Count 3.46 L Hemoglobin 9.4 L Hematocrit 30.8 L Mean Corpuscular 89.0 Volume Mean Corpuscular 27.2 L Hemoglobin Mean Corpuscular 30.5 L Hemoglobin Concen t Red Cell 16.3 H Distribution Width Platelet Count 222 Mean Platelet 10.2 Volume Immature 0.200 Granulocytes % Neutrophils % 76.0 Lymphocytes % 11.2 L Monocytes % 9.1 Eosinophils % 2.3 Basophils % 1.2 Nucleated Red 0.0 Blood Cells % Immature 0.010 Granulocytes # Neutrophils # 3.3 Lymphocytes # 0.5 L Monocytes # 0.4 Eosinophils # 0.1 Basophils # 0.1 Nucleated Red 0.0 Blood Cells # Sodium Level 146 H Potassium Level 4.0 Chloride Level 107 Carbon Dioxide 25 Level Anion Gap 14 H Blood Urea 81 H Nitrogen Creatinine 5.73 H Est Glomerular 10 L Filtrat Rate mL/min Glucose Level 62 #L Calcium Level 8.1 L Phosphorus Level 6.2 H Magnesium Level 2.3 Creatine Kinase 141 Creatine Kinase 2.2 Index Creatinine Kinase 3.06 H MB (Mass) Troponin I 0.038 Triglycerides 87 Level Cholesterol Level 131 LDL Cholesterol, 78 Calculated HDL Cholesterol 36 Cholesterol/HDL 3.6 Ratio Test 06/05/18 08:05 06/05/18 08:55 06/05/18 11:37 Bedside Glucose 43 *L 151 166 Medications Medication Current Medications Nitroglycerin (Nitroglycerin (Sl Tab) 0.4 Mg) 1 tab Q5M UP TO 3 DOSES PRN SL .CHEST PAIN; Start 06/03/18 at 17:00 IV Flush (NS 3 ml) 3 ml PER PROTOCOL IV ; Start 06/03/18 at 20:30 Ondansetron HCl (Zofran Inj) 4 mg Q6H PRN IV NAUSEA/VOMITING; Start 06/03/18 at 20:30 Acetaminophen (Tylenol Tab) 650 mg Q6H PRN PO .PAIN 1-3 OR TEMP Last administered on 06/04/18 09:02; Admin Dose 650 MG; Start 06/03/18 at 20:30 Docusate Sodium (Colace) 100 mg Q12H PRN PO .CONSTIPATION; Start 06/03/18 at 20:30 Bisacodyl (Dulcolax) 5 mg DAILY PRN PO .CONSTIPATION; Start 06/03/18 at 20:30 Atorvastatin Calcium (Lipitor) 40 mg QHS PO Last administered on 06/04/18 21:11; Admin Dose 40 MG; Start 06/04/18 at 21:00 Ferrous Sulfate (Ferrous Sulfate (Ec)) 325 mg BID PO Last administered on 06/05/18 08:19; Admin Dose 325 MG; Start 06/04/18 at 09:00 Hydralazine HCl (Apresoline) 50 mg TID PO Last administered on 06/05/18 12:11; Admin Dose 50 MG; Start 06/04/18 at 09:00 Tamsulosin HCl (Flomax) 0.4 mg HS PO Last administered on 06/04/18 21:11; Admin Dose 0.4 MG; Start 06/04/18 at 21:00 Hydralazine HCl (Apresoline) 10 mg Q4H PRN IV ELEVATED BLOOD PRESSURE Last admi nistered on 06/04/18 01:41; Admin Dose 10 MG; Start 06/04/18 at 01:30 Ceftriaxone Sodium 50 ml @ 100 mls/hr Q24H IVPB Last administered on 06/04/18 20:04; Admin Dose 100 MLS/HR; Start 06/04/18 at 20:00 Azithromycin 250 ml @ 250 mls/hr Q24H IVPB Last administered on 06/04/18 20:04; Admin Dose 250 MLS/HR; Start 06/04/18 at 20:00 Insulin Glargine (Lantus) 10 units HS SC Last administered on 06/04/18 21:15; Admin Dose 10 UNITS; Start 06/04/18 at 21:00 Diagnostic Test (Pha) (Accu-Chek) 1 ea 02 XX ; Start 06/05/18 at 02:00 Insulin Aspart (Novolog Insulin Pen) NOVOLOG *MILD* ALGORITHM WITH MEALS BEDTIME SC ; Start 06/04/18 at 08:30 Miscellaneous Information 1 ea NOTE XX ; Start 06/04/18 at 08:00 Glucose (Glutose) 15 gm Q15M PRN PO DECREASED GLUCOSE; Start 06/04/18 at 08:00 Glucose (Glutose) 22.5 gm Q15M PRN PO DECREASED GLUCOSE; Start 06/04/18 at 08:00 Dextrose (D50w Syringe) 25 ml Q15M PRN IV DECREASED GLUCOSE; Start 06/04/18 at 08:00 Dextrose (D50w Syringe) 50 ml Q15M PRN IV DECREASED GLUCOSE Last administered on 06/05/18at 08:20; Admin Dose 50 ML; Start 06/04/18 at 08:00 Glucagon (Glucagen) 1 mg Q15M PRN IM DECREASED GLUCOSE; Start 06/04/18 at 08:00 Glucose (Glutose) 15 gm Q15M PRN BUCCAL DECREASED GLUCOSE; Start 06/04/18 at 08:00 Metoprolol Succinate (Toprol Xl) 25 mg DAILY PO Last administered on 06/05/18at 08:19; Admin Dose 25 MG; Start 06/04/18 at 09:30 Ergocalciferol (Drisdol) 50,000 unit Fr@09 PO Last administered on 06/04/18at 11:43; Admin Dose 50,000 UNIT; Start 06/04/18 at 11:00 Nifedipine (Procardia Xl) 60 mg AM PO Last administered on 06/05/18at 08:18; Admin Dose 60 MG; Start 06/05/18 at 09:00 Nifedipine (Procardia Xl) 30 mg HS PO Last administered on 06/04/18at 21:11; Admin Dose 30 MG; Start 06/04/18 at 21:00 Sevelamer Carbonate (Renvela) 800 mg WITH MEALS PO Last administered on 06/05/18at 11:52; Admin Dose 800 MG; Start 06/05/18 at 08:30 Calcitriol (Calcitriol) 1 mcg ONCE ONCE IV ; Start 06/05/18 at 14:00; Stop 06/05/18 at 14:01 Cholecalciferol (Vitamin D) 2,000 unit DAILY PO ; Start 06/05/18 at 14:00 CAR BERRY MD Jun 05, 2018 13:42
[2018-06-05] MEDS ORDERED: CALCITRIOL 1 MCG INJ IV ONE (14:00)
--- NOTE | 2018-06-05 14:08 | CONS ---
Assessment/Plan Assessment/Plan Hospital Course (Demo Recall) IMPRESSION: 1. Increased BNP and shortness of breath, assess for congestive heart failure. 2. Hypertension. 3. Dyslipidemia. 4. Abnormal electrocardiogram, assess for acute coronary syndrome, lateral T- wave inversions. 5. Renal failure, severe. 6. Diabetes mellitus. 7. Anemia. 8. Benign prostatic hypertrophy. 9. Possible urinary retention. 10. CHF-systolic acute on chronic likely 11. cardiomyopathy-EF 40-45% Recc: -Tele -Continue toprol -Continue hydralazine/procardia with uptitration as necessary to improve SBP control -likely inititaion of HD Consultation Date/Type/Reason Admit Date/Time Jun 03, 2018 at 19:20 Initial Consult Date 06/04/18 Type of Consult Cardiology Reason for Consultation HTN Requesting Provider: ADELIA ARIAS Date/Time of Note DATE: 06/05/18 TIME: 14:03 Exam/Review of Systems Vital Signs Vitals Vital Signs Date Temp Pulse Resp B/P (MAP) Pulse Ox O2 O2 Flow FiO2 Time Delivery Rate 06/05/18 67 12:20 06/05/18 98.4 18 150/71 90 11:13 (97) 06/05/18 2.0 03:35 06/03/18 Room Air 19:32 Intake and Output 06/04/18 06/04/18 06/05/18 1515:00 23:00 07:00 IntakeIntake Total 850 ml 250 ml OutputOutput Total 500 ml 500 ml BalanceBalance 350 ml -250 ml Exam Exam Review of Systems: CONSTITUTIONAL: No fevers, chills. PULMONARY: No sob CARDIOVASCULAR: No chest pain/palpitations GASTROINTESTINAL: No nausea/vomiting. GENITOURINARY: No hematuria/dysuria. MUSCULOSKELETAL: No myagias/arthalgias. PSYCHIATRIC: The patient denies depression. NEUROLOGIC: No weakness Constitutional: alert Psych: no complaints Head: normocephalic ENMT: mucosa pink and moist Neck: supple, jvd (9 cm water) Respiratory: diminished breath sounds (at bases/B) Cardiovascular: regular rate and rhythm Gastrointestinal: soft Musculoskeletal: muscle tone (normal) Extremities: edema (none) Neurological: other (No focal deficits) Labs Result Diagram: 06/05/18 0514 06/05/18 0514 Results 24hrs Laboratory Tests Test 06/04/18 14:18 06/04/18 17:25 06/04/18 20:29 06/05/18 05:14 Urine Color YELLOW Urine Clarity SLIGHTLY CLOUDY A Urine pH 5.0 Urine Specific 1.012 [place] Urine Ketones NEGATIVE Urine Nitrite NEGATIVE Urine Bilirubin NEGATIVE Urine NEGATIVE Urobilinogen Urine Leukocyte TRACE A Esterase Urine Microscopic 169 H RBC Urine Microscopic 11 H WBC Urine Mucus FEW A Urine Yeast FEW A (Budding) Urine Hemoglobin 2+ H Urine Random 64.07 Creatinine Urine Random 109 H Sodium Urine Glucose 1+ H Urine Total 451.0 H Protein Bedside Glucose 126 182 White Blood Count 4.3 #L Red Blood Count 3.46 L Hemoglobin 9.4 L Hematocrit 30.8 L Mean Corpuscular 89.0 Volume Mean Corpuscular 27.2 L Hemoglobin Mean Corpuscular 30.5 L Hemoglobin Concen t Red Cell 16.3 H Distribution Width Platelet Count 222 Mean Platelet 10.2 Volume Immature 0.200 Granulocytes % Neutrophils % 76.0 Lymphocytes % 11.2 L Monocytes % 9.1 Eosinophils % 2.3 Basophils % 1.2 Nucleated Red 0.0 Blood Cells % Immature 0.010 Granulocytes # Neutrophils # 3.3 Lymphocytes # 0.5 L Monocytes # 0.4 Eosinophils # 0.1 Basophils # 0.1 Nucleated Red 0.0 Blood Cells # Sodium Level 146 H Potassium Level 4.0 Chloride Level 107 Carbon Dioxide 25 Level Anion Gap 14 H Blood Urea 81 H Nitrogen Creatinine 5.73 H Est Glomerular 10 L Filtrat Rate mL/min Glucose Level 62 #L Calcium Level 8.1 L Phosphorus Level 6.2 H Magnesium Level 2.3 Iron Level 24 L Total Iron Pending Binding Capacity Percent Iron Pending Saturation Creatine Kinase 141 Creatine Kinase 2.2 Index Creatinine Kinase 3.06 H MB (Mass) Troponin I 0.038 Triglycerides 87 Level Cholesterol Level 131 LDL Cholesterol, 78 Calculated HDL Cholesterol 36 Cholesterol/HDL 3.6 Ratio Test 06/05/18 08:05 06/05/18 08:55 06/05/18 11:37 Bedside Glucose 43 *L 151 166 Medications Medications Current Medications Nitroglycerin (Nitroglycerin (Sl Tab) 0.4 Mg) 1 tab Q5M UP TO 3 DOSES PRN SL .CHEST PAIN; Start 06/03/18 at 17:00 IV Flush (NS 3 ml) 3 ml PER PROTOCOL IV ; Start 06/03/18 at 20:30 Ondansetron HCl (Zofran Inj) 4 mg Q6H PRN IV NAUSEA/VOMITING; Start 06/03/18 at 20:30 Acetaminophen (Tylenol Tab) 650 mg Q6H PRN PO .PAIN 1-3 OR TEMP Last administered on 06/04/18 09:02; Admin Dose 650 MG; Start 06/03/18 at 20:30 Docusate Sodium (Colace) 100 mg Q12H PRN PO .CONSTIPATION; Start 06/03/18 at 20:30 Bisacodyl (Dulcolax) 5 mg DAILY PRN PO .CONSTIPATION; Start 06/03/18 at 20:30 Atorvastatin Calcium (Lipitor) 40 mg QHS PO Last administered on 06/04/18 21:11; Admin Dose 40 MG; Start 06/04/18 at 21:00 Ferrous Sulfate (Ferrous Sulfate (Ec)) 325 mg BID PO Last administered on 06/05/18 08:19; Admin Dose 325 MG; Start 06/04/18 at 09:00 Hydralazine HCl (Apresoline) 50 mg TID PO Last administered on 06/05/18 12:11; Admin Dose 50 MG; Start 06/04/18 at 09:00 Tamsulosin HCl (Flomax) 0.4 mg HS PO Last administered on 06/04/18 21:11; Admin Dose 0.4 MG; Start 06/04/18 at 21:00 Hydralazine HCl (Apresoline) 10 mg Q4H PRN IV ELEVATED BLOOD PRESSURE Last administered on 06/04/18 01:41; Admin Dose 10 MG; Start 06/04/18 at 01:30 Ceftriaxone Sodium 50 ml @ 100 mls/hr Q24H IVPB Last administered on 06/04/18 20:04; Admin Dose 100 MLS/HR; Start 06/04/18 at 20:00 Azithromycin 250 ml @ 250 mls/hr Q24H IVPB Last administered on 06/04/18 20:04; Admin Dose 250 MLS/HR; Start 06/04/18 at 20:00 Insulin Glargine (Lantus) 10 units HS SC Last administered on 06/04/18 21:15; Admin Dose 10 UNITS; Start 06/04/18 at 21:00 Diagnostic Test (Pha) (Accu-Chek) 1 ea 02 XX ; Start 06/05/18 at 02:00 Insulin Aspart (Novolog Insulin Pen) NOVOLOG *MILD* ALGORITHM WITH MEALS BEDTIME SC ; Start 06/04/18 at 08:30 Miscellaneous Information 1 ea NOTE XX ; Start 06/04/18 at 08:00 Glucose (Glutose) 15 gm Q15M PRN PO DECREASED GLUCOSE; Start 06/04/18 at 08:00 Glucose (Glutose) 22.5 gm Q15M PRN PO DECREASED GLUCOSE; Start 06/04/18 at 08:00 Dextrose (D50w Syringe) 25 ml Q15M PRN IV DECREASED GLUCOSE; Start 06/04/18 at 08:00 Dextrose (D50w Syringe) 50 ml Q15M PRN IV DECREASED GLUCOSE Last administered on 06/05/18at 08:20; Admin Dose 50 ML; Start 06/04/18 at 08:00 Glucagon (Glucagen) 1 mg Q15M PRN IM DECREASED GLUCOSE; Start 06/04/18 at 08:00 Glucose (Glutose) 15 gm Q15M PRN BUCCAL DECREASED GLUCOSE; Start 06/04/18 at 08:00 Metoprolol Succinate (Toprol Xl) 25 mg DAILY PO Last administered on 06/05/18 08:19; Admin Dose 25 MG; Start 06/04/18 at 09:30 Ergocalciferol (Drisdol) 50,000 unit Fr@09 PO Last administered on 06/04/18at 11:43; Admin Dose 50,000 UNIT; Start 06/04/18 at 11:00 Nifedipine (Procardia Xl) 60 mg AM PO Last administered on 06/05/18at 08:18; Admin Dose 60 MG; Start 06/05/18 at 09:00 Nifedipine (Procardia Xl) 30 mg HS PO Last administered on 06/04/18at 21:11; Admin Dose 30 MG; Start 06/04/18 at 21:00 Sevelamer Carbonate (Renvela) 800 mg WITH MEALS PO Last administered on 06/05/18at 11:52; Admin Dose 800 MG; Start 06/05/18 at 08:30 Cholecalciferol (Vitamin D) 2,000 unit DAILY PO ; Start 06/05/18 at 14:00 JAYCEE MYERS 23, 2019 14:08
[2018-06-05] MEDS: CHOLECALCIFEROL 2,000 UNIT CAP PO SCH (17:27)
[2018-06-05] MEDS: ATORVASTATIN 40 MG TAB PO SCH (20:39)
[2018-06-05] MEDS: NIFEdipine (XL) 30 MG TAB PO SCH (20:40)
[2018-06-05] MEDS: DOCUSATE SODIUM 100 MG CAP PO PRN (20:40)
[2018-06-05] MEDS: CEFTRIAXONE 1 GM/50 ML (PMX) 50 ML IVPB SCH (20:42)
[2018-06-05] MEDS: AZITHROMYCIN 500MG/NS (PMX) 250 ML IVPB SCH (20:43)
[2018-06-05] MEDS: TAMSULOSIN (SR) 0.4 MG CAP PO SCH (20:44)
[2018-06-05] MEDS: INSULIN GLARGINE [LANTus] (100 UNITS/ML) SYG SC SCH (20:50)
[2018-06-06] VITALS (11 sets, daily range): BP systolic 124–187; BP diastolic 64–97; PULSE 63–98; RESP 16–20
[2018-06-06] MEDS: ACCU-CHEK XX SCH (02:00)
[2018-06-06] MEDS: INSULIN ASPART [NOVOLOG] 3 ML PEN SC SCH ×4 (08:00→20:49)
[2018-06-06] MEDS: SEVELAMER CARBONATE 800 MG TABLET PO SCH ×3 (08:11→17:35)
[2018-06-06] MEDS: FERROUS SULFATE (EC) 325 MG TAB PO SCH ×2 (08:52→20:40)
[2018-06-06] MEDS: CHOLECALCIFEROL 2,000 UNIT CAP PO SCH (08:52)
[2018-06-06] MEDS: NIFEdipine (XL) 60 MG TAB PO SCH (08:53)
[2018-06-06] MEDS: METOPROLOL (XL) 25 MG TAB PO SCH ×2 (08:53→20:42)
--- NOTE | 2018-06-06 10:17 | PN ---
DATE: 06/06/2018 SUBJECTIVE: The patient is stable, no events overnight. Please note, I spoke again with the patient 's son discussing the possibility of dialysis. The patient's family and the patient are deciding whe ther they want to pursue dialysis. No other events noted. OBJECTIVE: VITAL SIGNS: Blood pressure is 151/80, respiratory rate 20, pulse 68, temperature 98.0. HEENT: Head is normocephalic. NECK: Supple. HEART: Regular rate. LUNGS: Show diminished breath sounds at the base. ABDOMEN: Soft, nontender to palpation without rebound or guarding. EXTREMITIES: Negative for clubbing, cyanosis, no edema. DERMATOLOGIC: No rashes. MUSCULOSKELETAL: No joint effusion. NEUROLOGIC: No change in exam. MEDICATIONS: The patient's medications have been reviewed. LABORATORY DATA: Shows a sodium of 146, potassium 4.0, BUN 82, creatinine 6.15, phosphorus 6.5, calc ium 8.0. White count 4.8, hemoglobin 9.6, and platelet count is 218. ASSESSMENT AND PLAN: 1. Chronic kidney disease stage III/IV with likely progression towards end-stage renal disease. The patient's renal function continues to decline. I spoke again with the patient's son about initiatin g hemodialysis therapy. The patient and patient's family are still deciding whether they wish to sta rt dialysis. At this point, would continue current treatment plan, supportive care, renally dose all meds, monitor closely. 2. Hypernatremia. Will encourage free water intake. 3. Anemia. Monitor hemoglobin and hematocrit levels. Will give Epogen as needed. 4. Mineral bone disorder. Monitor calcium and phosphorus levels. Continue phosphate binders. 5. Volume overload, improved after diuretic therapy. We will continue to monitor. 6. Hypertension. Continue current blood pressure regimen. 7. Possible pneumonia. Continue current antibiotic regimen. 8. Diabetes. Continue current diabetic regimen. 9. Dyslipidemia. Continue statin therapy. 10. Blindness. Likely secondary to diabetic retinopathy. Continue to monitor. Dictated By: PEPITO CRISTOBAL DO NR/NTS Conf#: [id number] DID#: [id number] CC: ADELIA ARIAS MD; DANGELO PERDUE MD;*EndCC*
[2018-06-06] MEDS ORDERED: DOXAZOSIN 2 MG TAB PO ONE (12:00)
--- NOTE | 2018-06-06 12:00 | PN ---
Date/Time of Note Date/Time of Note DATE: 06/06/18 TIME: 11:57 Assessment/Plan VTE Prophylaxis Risk score (from Ns)>0 risk: 3 SCD applied (from Ns): No SCD contraindicated: low risk/ambulating Pharmacological prophylaxis: heparin Lines/Catheters IV [facility]ter [facility]from [facility] Saline Lock Urinary Cath still in place: Yes Reason Cath still needed: urinary retention Assessment/Plan Problems: (1) End-stage renal disease needing dialysis Status: Acute Comment: Patient is approaching a time where he is willing to proceed. Case management is assisting getting everything set up. Nephrology to help with guidance as well. (2) Diabetic visual loss: blindness of both eyes, with retinopathy, associated with type 2 diabetes mellitus Status: Chronic Comment: Noted. (3) Diabetes mellitus type 2 in nonobese Status: Chronic Comment: His diabetic control is doing relatively well at this time on low medications, this is due to his renal failure (4) Hyperlipidemia associated with type 2 diabetes mellitus Status: Chronic Comment: Aggressive risk factor management (5) Benign prostatic hyperplasia with lower urinary tract symptoms Status: Chronic Comment: Given his blood pressure needing multiple medications and going to discontinue the tamsulosin and use an alpha blocking agent specifically doxazosin to help smooth out his blood pressures and also to manage this. Please note obstructive uropathy is not the cause of his renal failure Qualifiers: Lower urinary tract symptom detail: urinary hesitancy Qualified Codes: N40.1 - Benign prostatic hyperplasia with lower urinary tract symptoms; R39.11 - Hesitancy of micturition (6) Essential hypertension Status: Chronic Comment: Adjust medications to try and simplify the regimen. Please not interested in nephrology's opinion about the usage of an AGAPITO inhibitor or an angiotensin II receptor anupama. At this point in time were not terribly concerned about her worsening renal function since he has had end-stage renal disease. (7) Vitamin D deficiency Status: Chronic Comment: On replacement therapy Result Diagram: 06/06/18 0509 06/06/18 0509 Results 24hrs Laboratory Tests Test 06/05/18 17:24 06/05/18 20:38 06/06/18 05:09 06/06/18 08:07 Bedside Glucose 175 139 108 White Blood Count 4.8 Red Blood Count 3.50 L Hemoglobin 9.6 L Hematocrit 31.2 L Mean Corpuscular 89.1 Volume Mean Corpuscular 27.4 L Hemoglobin Mean Corpuscular 30.8 L Hemoglobin Concent Red Cell 16.1 H Distribution Width Platelet Count 218 Mean Platelet Volume 9.9 Immature 0.400 Granulocytes % Neutrophils % 71.1 Lymphocytes % 12.1 L Monocytes % 11.9 H Eosinophils % 3.5 Basophils % 1.0 Nucleated Red Blood 0.0 Cells % Immature 0.020 Granulocytes # Neutrophils # 3.4 Lymphocytes # 0.6 L Monocytes # 0.6 Eosinophils # 0.2 Basophils # 0.1 Nucleated Red Blood 0.0 Cells # Sodium Level 146 H Potassium Level 4.0 Chloride Level 107 Carbon Dioxide Level 24 Anion Gap 15 H Blood Urea Nitrogen 82 H Creatinine 6.15 H Est Glomerular 9 L Filtrat Rate mL/min Glucose Level 135 # Calcium Level 8.0 L Phosphorus Level 6.4 H Magnesium Level 2.3 Subjective 24 Hr Interval Summary Free Text/Dictation Patient's family is interested in pursuing dialysis. Patient is a little bit reticent because of the amount of time he would have to put into it. Constitutional: no complaints Respiratory: no complaints Cardiovascular: no complaints Gastrointestinal: no complaints, constipation Exam/Review of Systems Exam Vitals Vital Signs Date Temp Pulse Resp B/P (MAP) Pulse Ox O2 O2 Flow FiO2 Time Delivery Rate 06/06/18 65 08:11 06/06/18 98.0 20 151/80 99 07:54 (103) 06/06/18 2.0 06:47 06/05/18 Nasal 20:00 Cannula Intake and Output 06/05/18 06/05/18 06/06/18 1414:59 22:59 06:59 IntakeIntake Total 250 ml 700 ml 400 ml OutputOutput Total 500 ml 500 ml 250 ml BalanceBalance -250 ml 200 ml 150 ml Constitutional: alert, oriented Respiratory: clear to auscultation, normal air movement Cardiovascular: regular rate and rhythm, nl pulses Gastrointestinal: soft, nl liver, spleen, non-tender Results Results 24hrs Laboratory Tests Test 06/05/18 17:24 06/05/18 20:38 06/06/18 05:09 06/06/18 08:07 Bedside Glucose 175 139 108 White Blood Count 4.8 Red Blood Count 3.50 L Hemoglobin 9.6 L Hematocrit 31.2 L Mean Corpuscular 89.1 Volume Mean Corpuscular 27.4 L Hemoglobin Mean Corpuscular 30.8 L Hemoglobin Concent Red Cell 16.1 H Distribution Width Platelet Count 218 Mean Platelet Volume 9.9 Immature 0.400 Granulocytes % Neutrophils % 71.1 Lymphocytes % 12.1 L Monocytes % 11.9 H Eosinophils % 3.5 Basophils % 1.0 Nucleated Red Blood 0.0 Cells % Immature 0.020 Granulocytes # Neutrophils # 3.4 Lymphocytes # 0.6 L Monocytes # 0.6 Eosinophils # 0.2 Basophils # 0.1 Nucleated Red Blood 0.0 Cells # Sodium Level 146 H Potassium Level 4.0 Chloride Level 107 Carbon Dioxide Level 24 Anion Gap 15 H Blood Urea Nitrogen 82 H Creatinine 6.15 H Est Glomerular 9 L Filtrat Rate mL/min Glucose Level 135 # Calcium Level 8.0 L Phosphorus Level 6.4 H Magnesium Level 2.3 Medications Medication Current Medications Nitroglycerin (Nitroglycerin (Sl Tab) 0.4 Mg) 1 tab Q5M UP TO 3 DOSES PRN SL .CHEST PAIN; Start 06/03/18 at 17:00 IV Flush (NS 3 ml) 3 ml PER PROTOCOL IV ; Start 06/03/18 at 20:30 Ondansetron HCl (Zofran Inj) 4 mg Q6H PRN IV NAUSEA/VOMITING; Start 06/03/18 at 20:30 Acetaminophen (Tylenol Tab) 650 mg Q6H PRN PO .PAIN 1-3 OR TEMP Last administe red on 06/04/18at 09:02; Admin Dose 650 MG; Start 06/03/18 at 20:30 Docusate Sodium (Colace) 100 mg Q12H PRN PO .CONSTIPATION Last administered on 06/05/18at 20:40; Admin Dose 100 MG; Start 06/03/18 at 20:30 Bisacodyl (Dulcolax) 5 mg DAILY PRN PO .CONSTIPATION; Start 06/03/18 at 20:30 Atorvastatin Calcium (Lipitor) 40 mg QHS PO Last administered on 06/05/18at 20:39; Admin Dose 40 MG; Start 06/04/18 at 21:00 Ferrous Sulfate (Ferrous Sulfate (Ec)) 325 mg BID PO Last administered on 06/06/18at 08:52; Admin Dose 325 MG; Start 06/04/18 at 09:00; Stop 07/04/18 at 08:59 Hydralazine HCl (Apresoline) 10 mg Q4H PRN IV ELEVATED BLOOD PRESSURE Last administered on 06/04/18 01:41; Admin Dose 10 MG; Start 06/04/18 at 01:30 Ceftriaxone Sodium 50 ml @ 100 mls/hr Q24H IVPB Last administered on 06/05/18 20:42; Admin Dose 100 MLS/HR; Start 06/04/18 at 20:00; Stop 06/11/18 at 19:59 Azithromycin 250 ml @ 250 mls/hr Q24H IVPB Last administered on 06/05/18at 20:43; Admin Dose 250 MLS/HR; Start 06/04/18 at 20:00; Stop 06/07/18 at 19:59 Diagnostic Test (Pha) (Accu-Chek) 1 ea 02 XX ; Start 06/05/18 at 02:00 Insulin Aspart (Novolog Insulin Pen) NOVOLOG *MILD* ALGORITHM WITH MEALS BEDTIME SC Last administered on 06/05/18at 17:31; Admin Dose 1 UNIT; Start 06/04/18 at 08:30 Miscellaneous Information 1 ea NOTE XX ; Start 06/04/18 at 08:00 Glucose (Glutose) 15 gm Q15M PRN PO DECREASED GLUCOSE; Start 06/04/18 at 08:00 Glucose (Glutose) 22.5 gm Q15M PRN PO DECREASED GLUCOSE; Start 06/04/18 at 08:00 Dextrose (D50w Syringe) 25 ml Q15M PRN IV DECREASED GLUCOSE; Start 06/04/18 at 08:00 Dextrose (D50w Syringe) 50 ml Q15M PRN IV DECREASED GLUCOSE Last administered on 06/05/18at 08:20; Admin Dose 50 ML; Start 06/04/18 at 08:00 Glucagon (Glucagen) 1 mg Q15M PRN IM DECREASED GLUCOSE; Start 06/04/18 at 08:00 Glucose (Glutose) 15 gm Q15M PRN BUCCAL DECREASED GLUCOSE; Start 06/04/18 at 08:00 Ergocalciferol (Drisdol) 50,000 unit Fr@09 PO Last administered on 06/04/18at 11:43; Admin Dose 50,000 UNIT; Start 06/04/18 at 11:00 Nifedipine (Procardia Xl) 60 mg AM PO Last administered on 06/06/18at 08:53; Admin Dose 60 MG; Start 06/05/18 at 09:00 Sevelamer Carbonate (Renvela) 800 mg WITH MEALS PO Last administered on 06/06/18at 08:11; Admin Dose 800 MG; Start 06/05/18 at 08:30 Cholecalciferol (Vitamin D) 2,000 unit DAILY PO Last administered on 06/06/18at 08:52; Admin Dose 2,000 UNIT; Start 06/05/18 at 14:00 Hydralazine HCl (Apresoline) 100 mg BID PO ; Start 06/06/18 at 21:00 Insulin Glargine (Lantus) 8 units HS SC ; Start 06/06/18 at 21:00 Metoprolol Succinate (Toprol Xl) 25 mg BID PO ; Start 06/06/18 at 21:00; Status UNV Doxazosin Mesylate (Cardura) 2 mg ONCE ONCE PO ; Start 06/06/18 at 12:00; Stop 06/06/18 at 12:01; Status UNV Doxazosin Mesylate (Cardura) 4 mg HS PO ; Start 06/06/18 at 21:00; Status UNV Ascorbic Acid (Vitamin C) 500 mg BID PO ; Start 06/06/18 at 21:00; Stop 07/06/18 at 20:59; Status UNV CAR BERRY MD Jun 06, 2018 12:00
--- NOTE | 2018-06-06 13:04 | CONS ---
Assessment/Plan Assessment/Plan Hospital Course (Demo Recall) IMPRESSION: 1. Increased BNP and shortness of breath, assess for congestive heart failure. 2. Hypertension. 3. Dyslipidemia. 4. Abnormal electrocardiogram, assess for acute coronary syndrome, lateral T- wave inversions. 5. Renal failure, severe. 6. Diabetes mellitus. 7. Anemia. 8. Benign prostatic hypertrophy. 9. Possible urinary retention. 10. CHF-systolic acute on chronic likely 11. cardiomyopathy-EF 40-45% Recc: -Tele -Continue toprol/hydralazine s/p increase today and now started on cardura. Would uptitrate procardia if BP continues to be elevated -likely inititaion of HD Consultation Date/Type/Reason Admit Date/Time Jun 03, 2018 at 19:20 Initial Consult Date 06/04/18 Type of Consult Cardiology Reason for Consultation CHF Requesting Provider: ADELIA ARIAS Date/Time of Note DATE: 06/06/18 TIME: 13:01 Exam/Review of Systems Vital Signs Vitals Vital Signs Date Temp Pulse Resp B/P (MAP) Pulse Ox O2 O2 Flow FiO2 Time Delivery Rate 06/06/18 64 12:30 06/06/18 98.0 20 187/97 98 12:07 (127) 06/06/18 2.0 06:47 06/05/18 Nasal 20:00 Cannula Intake and Output 06/05/18 06/05/18 06/06/18 1515:00 23:00 07:00 IntakeIntake Total 700 ml 400 ml OutputOutput Total 500 ml 250 ml BalanceBalance 200 ml 150 ml Exam Exam Review of Systems: CONSTITUTIONAL: No fevers, chills. PULMONARY: No sob CARDIOVASCULAR: No chest pain/palpitations GASTROINTESTINAL: No nausea/vomiting. GENITOURINARY: No hematuria/dysuria. MUSCULOSKELETAL: No myagias/arthalgias. PSYCHIATRIC: The patient denies depression. NEUROLOGIC: No weakness Constitutional: alert Psych: no complaints Head: normocephalic ENMT: mucosa pink and moist Neck: supple, jvd (9 cm water) Respiratory: diminished breath sounds Cardiovascular: regular rate and rhythm Gastrointestinal: soft, non-tender Musculoskeletal: muscle tone (normal) Extremities: pitting pedal edema (trace/B) Labs Result Diagram: 06/06/18 0509 06/06/18 0509 Results 24hrs Laboratory Tests Test 06/05/18 17:24 06/05/18 20:38 06/06/18 05:09 06/06/18 08:07 Bedside Glucose 175 139 108 White Blood Count 4.8 Red Blood Count 3.50 L Hemoglobin 9.6 L Hematocrit 31.2 L Mean Corpuscular 89.1 Volume Mean Corpuscular 27.4 L Hemoglobin Mean Corpuscular 30.8 L Hemoglobin Concent Red Cell 16.1 H Distribution Width Platelet Count 218 Mean Platelet Volume 9.9 Immature 0.400 Granulocytes % Neutrophils % 71.1 Lymphocytes % 12.1 L Monocytes % 11.9 H Eosinophils % 3.5 Basophils % 1.0 Nucleated Red Blood 0.0 Cells % Immature 0.020 Granulocytes # Neutrophils # 3.4 Lymphocytes # 0.6 L Monocytes # 0.6 Eosinophils # 0.2 Basophils # 0.1 Nucleated Red Blood 0.0 Cells # Sodium Level 146 H Potassium Level 4.0 Chloride Level 107 Carbon Dioxide Level 24 Anion Gap 15 H Blood Urea Nitrogen 82 H Creatinine 6.15 H Est Glomerular 9 L Filtrat Rate mL/min Glucose Level 135 # Calcium Level 8.0 L Phosphorus Level 6.4 H Magnesium Level 2.3 Test 06/06/18 11:52 Bedside Glucose 205 Medications Medications Current Medications Nitroglycerin (Nitroglycerin (Sl Tab) 0.4 Mg) 1 tab Q5M UP TO 3 DOSES PRN SL .CHEST PAIN; Start 06/03/18 at 17:00 IV Flush (NS 3 ml) 3 ml PER PROTOCOL IV ; Start 06/03/18 at 20:30 Ondansetron HCl (Zofran Inj) 4 mg Q6H PRN IV NAUSEA/VOMITING; Start 06/03/18 at 20:30 Acetaminophen (Tylenol Tab) 650 mg Q6H PRN PO .PAIN 1-3 OR TEMP Last administered on 06/04/18at 09:02; Admin Dose 650 MG; Start 06/03/18 at 20:30 Docusate Sodium (Colace) 100 mg Q12H PRN PO .CONSTIPATION Last administered on 06/05/18at 20:40; Admin Dose 100 MG; Start 06/03/18 at 20:30 Bisacodyl (Dulcolax) 5 mg DAILY PRN PO .CONSTIPATION; Start 06/03/18 at 20:30 Atorvastatin Calcium (Lipitor) 40 mg QHS PO Last administered on 06/05/18at 20:39; Admin Dose 40 MG; Start 06/04/18 at 21:00 Ferrous Sulfate (Ferrous Sulfate (Ec)) 325 mg BID PO Last administered on 06/06/18at 08:52; Admin Dose 325 MG; Start 06/04/18 at 09:00; Stop 07/04/18 at 08:59 Hydralazine HCl (Apresoline) 10 mg Q4H PRN IV ELEVATED BLOOD PRESSURE Last administered on 06/04/18at 01:41; Admin Dose 10 MG; Start 06/04/18 at 01:30 Ceftriaxone Sodium 50 ml @ 100 mls/hr Q24H IVPB Last administered on 06/05/18at 20:42; Admin Dose 100 MLS/HR; Start 06/04/18 at 20:00; Stop 06/11/18 at 19:59 Azithromycin 250 ml @ 250 mls/hr Q24H IVPB Last administered on 06/05/18at 20:43; Admin Dose 250 MLS/HR; Start 06/04/18 at 20:00; Stop 06/07/18 at 19:59 Diagnostic Test (Pha) (Accu-Chek) 1 ea 02 XX ; Start 06/05/18 at 02:00 Insulin Aspart (Novolog Insulin Pen) NOVOLOG *MILD* ALGORITHM WITH MEALS BEDTIME SC Last administered on 06/06/18at 12:01; Admin Dose 2 UNIT; Start 06/04/18 at 08:30 Miscellaneous Information 1 ea NOTE XX ; Start 06/04/18 at 08:00 Glucose (Glutose) 15 gm Q15M PRN PO DECREASED GLUCOSE; Start 06/04/18 at 08:00 Glucose (Glutose) 22.5 gm Q15M PRN PO DECREASED GLUCOSE; Start 06/04/18 at 08:00 Dextrose (D50w Syringe) 25 ml Q15M PRN IV DECREASED GLUCOSE; Start 06/04/18 at 08:00 Dextrose (D50w Syringe) 50 ml Q15M PRN IV DECREASED GLUCOSE Last administered on 06/05/18at 08:20; Admin Dose 50 ML; Start 06/04/18 at 08:00 Glucagon (Glucagen) 1 mg Q15M PRN IM DECREASED GLUCOSE; Start 06/04/18 at 08:00 Glucose (Glutose) 15 gm Q15M PRN BUCCAL DECREASED GLUCOSE; Start 06/04/18 at 08:00 Ergocalciferol (Drisdol) 50,000 unit Fr@09 PO Last administered on 06/04/18 11:43; Admin Dose 50,000 UNIT; Start 06/04/18 at 11:00 Nifedipine (Procardia Xl) 60 mg AM PO Last administered on 06/06/18 08:53; Ad min Dose 60 MG; Start 06/05/18 at 09:00 Sevelamer Carbonate (Renvela) 800 mg WITH MEALS PO Last administered on 06/06/18 11:56; Admin Dose 800 MG; Start 06/05/18 at 08:30 Cholecalciferol (Vitamin D) 2,000 unit DAILY PO Last administered on 06/06/18 08:52; Admin Dose 2,000 UNIT; Start 06/05/18 at 14:00 Hydralazine HCl (Apresoline) 100 mg BID PO ; Start 06/06/18 at 21:00 Insulin Glargine (Lantus) 8 units HS SC ; Start 06/06/18 at 21:00 Metoprolol Succinate (Toprol Xl) 25 mg BID PO ; Start 06/06/18 at 21:00 Doxazosin Mesylate (Cardura) 4 mg HS PO ; Start 06/06/18 at 21:00 Ascorbic Acid (Vitamin C) 500 mg BID PO ; Start 06/06/18 at 21:00; Stop 07/06/18 at 20:59 JAYCEE MYERS 24, 2019 13:04
--- NOTE | 2018-06-06 13:22 | CONS ---
Consult Date/Type/Reason Admit Date/Time Jun 03, 2018 at 19:20 Initial Consult Date 06/04/18 Type of Consultation: Urology Reason for Consultation Urinary retention, low urine output after the Abdi catheter was inserted Requesting Provider: ADELIA ARIAS Date/Time of Note DATE: 06/06/18 TIME: 13:19 Subjective Patient denies any pain and he is comfortable. Objective Vitals Vital Signs Date Temp Pulse Resp B/P (MAP) Pulse Ox O2 O2 Flow FiO2 Time Delivery Rate 06/06/18 64 12:30 06/06/18 98.0 20 187/97 98 12:07 (127) 06/06/18 2.0 06:47 06/05/18 Nasal 20:00 Cannula Intake and Output 06/05/18 06/05/18 06/06/18 1515:00 23:00 07:00 IntakeIntake Total 700 ml 400 ml OutputOutput Total 500 ml 250 ml BalanceBalance 200 ml 150 ml Exam Patient is comfortable. The Abdi catheter is draining clear urine. The urine output was 1250 mL in 24 hours Results/Medications Result Diagram: 06/06/18 0509 06/06/18 0509 Results 24 hrs Laboratory Tests Test 06/05/18 17:24 06/05/18 20:38 06/06/18 05:09 06/06/18 08:07 Bedside Glucose 175 139 108 White Blood Count 4.8 Red Blood Count 3.50 L Hemoglobin 9.6 L Hematocrit 31.2 L Mean Corpuscular 89.1 Volume Mean Corpuscular 27.4 L Hemoglobin Mean Corpuscular 30.8 L Hemoglobin Concent Red Cell 16.1 H Distribution Width Platelet Count 218 Mean Platelet Volume 9.9 Immature 0.400 Granulocytes % Neutrophils % 71.1 Lymphocytes % 12.1 L Monocytes % 11.9 H Eosinophils % 3.5 Basophils % 1.0 Nucleated Red Blood 0.0 Cells % Immature 0.020 Granulocytes # Neutrophils # 3.4 Lymphocytes # 0.6 L Monocytes # 0.6 Eosinophils # 0.2 Basophils # 0.1 Nucleated Red Blood 0.0 Cells # Sodium Level 146 H Potassium Level 4.0 Chloride Level 107 Carbon Dioxide Level 24 Anion Gap 15 H Blood Urea Nitrogen 82 H Creatinine 6.15 H Est Glomerular 9 L Filtrat Rate mL/min Glucose Level 135 # Calcium Level 8.0 L Phosphorus Level 6.4 H Magnesium Level 2.3 Test 06/06/18 11:52 Bedside Glucose 205 Home Meds Reported Medications Epoetin Federico (Procrit) 10,000 Unit/1 Ml Vial, 55936 UNIT IJ Q1 WEEK, VIAL 06/03/18 Furosemide* (Furosemide*) 80 Mg Tablet, 80 MG PO BID, #60 TAB 06/03/18 Ferrous Sulfate* (Ferrous Sulfate*) 325 Mg Tabec, 325 MG PO BID, TAB 06/03/18 Glipizide* (Glipizide*) 10 Mg Tablet, 5 MG PO AC BREAKFAST DINNER, TAB 06/03/18 Insulin Glargine,Hum.rec.anlog (Basaglar Kwikpen U-100) 100 Unit/1 Ml Insuln.pen, 10 UNIT SC QHS, EA 06/03/18 Losartan Potassium* (Losartan Potassium*) 50 Mg Tablet, 50 MG PO DAILY, TAB 06/03/18 Atorvastatin* (Atorvastatin*) 40 Mg Tablet, 40 MG PO QHS, #30 TAB 06/03/18 Hydralazine Hcl* (Hydralazine Hcl*) 50 Mg Tab, 50 MG PO TID, #90 TAB 06/03/18 Tamsulosin Hcl* (Tamsulosin Hcl*) 0.4 Mg Cap.er.24h, 0.4 MG PO HS, CAP 06/03/18 Sitagliptin* (Januvia*) 100 Mg Tablet, 100 MG PO DAILY, #30 TAB 06/03/18 Discontinued Reported Medications Glipizide* (Glipizide*) 5 Mg Tablet, 5 MG PO AC BREAKFAST DINNER, TAB 06/03/18 [Ferrous Sulfate] No Conflict Check 01/29/18 [Glipizide] No Conflict Check 01/29/18 [Admelog Solostar] No Conflict Check 01/29/18 [Losartan] No Conflict Check 01/29/18 [Atorvastatin] No Conflict Check 01/29/18 [Hydralazine] No Conflict Check 01/29/18 [Albuterol Sulfate] No Conflict Check 01/29/18 [Furosemide] No Conflict Check 01/29/18 [Tamsulosin] No Conflict Check 01/29/18 Medications Current Medications Nitroglycerin (Nitroglycerin (Sl Tab) 0.4 Mg) 1 tab Q5M UP TO 3 DOSES PRN SL .CHEST PAIN; Start 06/03/18 at 17:00 IV Flush (NS 3 ml) 3 ml PER PROTOCOL IV ; Start 06/03/18 at 20:30 Ondansetron HCl (Zofran Inj) 4 mg Q6H PRN IV NAUSEA/VOMITING; Start 06/03/18 at 20:30 Acetaminophen (Tylenol Tab) 650 mg Q6H PRN PO .PAIN 1-3 OR TEMP Last administered on 06/04/18 09:02; Admin Dose 650 MG; Start 06/03/18 at 20:30 Docusate Sodium (Colace) 100 mg Q12H PRN PO .CONSTIPATION Last administered on 06/05/18 20:40; Admin Dose 100 MG; Start 06/03/18 at 20:30 Bisacodyl (Dulcolax) 5 mg DAILY PRN PO .CONSTIPATION; Start 06/03/18 at 20:30 Atorvastatin Calcium (Lipitor) 40 mg QHS PO Last administered on 06/05/18 20:39; Admin Dose 40 MG; Start 06/04/18 at 21:00 Ferrous Sulfate (Ferrous Sulfate (Ec)) 325 mg BID PO Last administered on 06/06/18 08:52; Admin Dose 325 MG; Start 06/04/18 at 09:00; Stop 07/04/18 at 08:59 Hydralazine HCl (Apresoline) 10 mg Q4H PRN IV ELEVATED BLOOD PRESSURE Last administered on 06/04/18 01:41; Admin Dose 10 MG; Start 06/04/18 at 01:30 Ceftriaxone Sodium 50 ml @ 100 mls/hr Q24H IVPB Last administered on 06/05/18 20:42; Admin Dose 100 MLS/HR; Start 06/04/18 at 20:00; Stop 06/11/18 at 19:59 Azithromycin 250 ml @ 250 mls/hr Q24H IVPB Last administered on 06/05/18 20:4 3; Admin Dose 250 MLS/HR; Start 06/04/18 at 20:00; Stop 06/07/18 at 19:59 Diagnostic Test (Pha) (Accu-Chek) 1 ea 02 XX ; Start 06/05/18 at 02:00 Insulin Aspart (Novolog Insulin Pen) NOVOLOG *MILD* ALGORITHM WITH MEALS BEDTIME SC Last administered on 3/24/19at 12:01; Admin Dose 2 UNIT; Start 06/04/18 at 08:30 Miscellaneous Information 1 ea NOTE XX ; Start 06/04/18 at 08:00 Glucose (Glutose) 15 gm Q15M PRN PO DECREASED GLUCOSE; Start 06/04/18 at 08:00 Glucose (Glutose) 22.5 gm Q15M PRN PO DECREASED GLUCOSE; Start 06/04/18 at 08:00 Dextrose (D50w Syringe) 25 ml Q15M PRN IV DECREASED GLUCOSE; Start 06/04/18 at 08:00 Dextrose (D50w Syringe) 50 ml Q15M PRN IV DECREASED GLUCOSE Last administered on 06/05/18at 08:20; Admin Dose 50 ML; Start 06/04/18 at 08:00 Glucagon (Glucagen) 1 mg Q15M PRN IM DECREASED GLUCOSE; Start 06/04/18 at 08:00 Glucose (Glutose) 15 gm Q15M PRN BUCCAL DECREASED GLUCOSE; Start 06/04/18 at 08:00 Ergocalciferol (Drisdol) 50,000 unit Fr@09 PO Last administered on 06/04/18at 11:43; Admin Dose 50,000 UNIT; Start 06/04/18 at 11:00 Nifedipine (Procardia Xl) 60 mg AM PO Last administered on 06/06/18at 08:53; Admin Dose 60 MG; Start 06/05/18 at 09:00 Sevelamer Carbonate (Renvela) 800 mg WITH MEALS PO Last administered on 06/06/18at 11:56; Admin Dose 800 MG; Start 06/05/18 at 08:30 Cholecalciferol (Vitamin D) 2,000 unit DAILY PO Last administered on 06/06/18at 08:52; Admin Dose 2,000 UNIT; Start 06/05/18 at 14:00 Hydralazine HCl (Apresoline) 100 mg BID PO ; Start 06/06/18 at 21:00 Insulin Glargine (Lantus) 8 units HS SC ; Start 06/06/18 at 21:00 Metoprolol Succinate (Toprol Xl) 25 mg BID PO ; Start 06/06/18 at 21:00 Doxazosin Mesylate (Cardura) 4 mg HS PO ; Start 06/06/18 at 21:00 Ascorbic Acid (Vitamin C) 500 mg BID PO ; Start 06/06/18 at 21:00; Stop 07/06/18 at 20:59 Assessment/Plan Hospital Course (Demo Recall) 58-year-old male with hypertension, diabetes, chronic kidney disease, and blindness presented with fluid overload. There was difficulty inserting a Abdi catheter initially but after that it was successful and the Abdi catheter is draining well. Therefore a urological consultation was requested. The patient went to his doctor and was sent to the ER for "retaining too much fluid". It started approximately 1 month ago according to him. He has had bilateral leg swelling that is worsening. He has kidney disease. His shortness of breath with laying down. He takes Lasix. He has left-sided chest pain that started the day before admission. The patient was seen and his and also his brother were at his bedside and they helped also with his history. Prior to admission he usually has nocturia 3-4 times. Daytime he voids every half hour. He denies any dysuria and the family states that there is no gross hematuria as the patient himself is blind and cannot see that. He states that his urinary stream is good and he feels he empties his bladder. Presently he does have a Abdi catheter that is draining clear urine. We shall keep the Abdi catheter in and once it is not needed for monitoring the urine output we can DC it and see if he is able to urinate on his own. His urine output was about 1250 mL. Urine culture no growth in 48 hours. Continue his tamsulosin. It seems the patient and his family are now willing for him to have dialysis DANGELO PERDUE MD Jun 06, 2018 13:22
--- NOTE | 2018-06-06 16:28 | RADRPT ---
Vent Rate: 66 bpm RR Interval: 0 msec SD Interval: 170 msec QRS Duration: 80 msec QT Interval: 434 msec QTC Interval: 454 msec P-R-T [place]: 1 - -39 - 0 degrees Normal sinus rhythm Left axis deviation Inferior infarct , age undetermined Possible Anterior infarct , age undetermined T wave abnormality, consider lateral ischemia Abnormal ECG Electronically Signed By: Mike Dial
[2018-06-06] MEDS: CEFTRIAXONE 1 GM/50 ML (PMX) 50 ML IVPB SCH (20:33)
[2018-06-06] MEDS: ATORVASTATIN 40 MG TAB PO SCH (20:40)
[2018-06-06] MEDS: ASCORBIC ACID 500 MG TAB PO SCH (20:40)
[2018-06-06] MEDS: DOXAZOSIN 4 MG TAB PO SCH (20:41)
[2018-06-06] MEDS: INSULIN GLARGINE [LANTus] (100 UNITS/ML) SYG SC SCH (20:49)
[2018-06-06] MEDS: AZITHROMYCIN 500MG/NS (PMX) 250 ML IVPB SCH (21:21)
[2018-06-07] VITALS (9 sets, daily range): BP systolic 98–182; BP diastolic 50–88; PULSE 60–80; RESP 18–20
[2018-06-07] MEDS: ACCU-CHEK XX SCH (02:08)
[2018-06-07] MEDS: SEVELAMER CARBONATE 800 MG TABLET PO SCH ×3 (07:31→17:22)
[2018-06-07] MEDS: INSULIN ASPART [NOVOLOG] 3 ML PEN SC SCH ×4 (07:31→20:48)
--- NOTE | 2018-06-07 09:03 | PN ---
DATE: 06/07/2018 UBJECTIVE: The patient is stable. No events overnight. The patient's family is still deciding on h emodialysis. No other events noted. OBJECTIVE: VITAL SIGNS: Blood pressure is 175/81, respirations 18, pulse 62, temperature 98.2. HEENT: Head is normocephalic. NECK: Supple. HEART: Regular rate. LUNGS: Show diminished breath sounds at the base. ABDOMEN: Soft, nontender to palpation without rebound or guarding. EXTREMITIES: Negative for clubbing, cyanosis, no edema. DERMATOLOGIC: No rashes. MUSCULOSKELETAL: No joint effusion. NEUROLOGIC: No change in exam. MEDICATIONS: Reviewed. LABORATORY DATA: Shows sodium 145, potassium 4.1, chloride 111, bicarbonate 23, BUN 84, creatinine 6 .59, calcium 8.0, phosphorus 6.9. White count 4.5, hemoglobin 9.8, platelet count is 230. IMAGING STUDIES: Reviewed. ASSESSMENT AND PLAN: 1. Chronic kidney disease, stage IIIB/IV with likely progression towards end-stage renal disease. T he patient's renal function continues to decline. The patient's family is deciding whether to pursue dialysis. We would otherwise continue current treatment plans, supportive care, renally dose all me dicines. 2. Hypernatremia, improved. Continue to encourage free water intake. 3. Anemia. Continue to monitor hemoglobin and hematocrit levels. We will continue Epogen as needed . 4. Mineral bone disorder, monitor calcium and phosphorus levels. 5. Volume overload, improved. 6. Hypertension. Continue current blood pressure regimen. 7. Possible pneumonia. The patient is completing antibiotic course. 8. Diabetes. Continue current insulin regimen. 9. Dyslipidemia. Continue statin therapy. 10. Blindness likely due to diabetic retinopathy. Continue to monitor. Dictated By: PEPITO CRISTOBAL DO NR/NTS Conf#: [id number] DID#: [id number] CC: DANGELO PERDUE MD; ADELIA ARIAS MD;*EndCC*
[2018-06-07] MEDS: CHOLECALCIFEROL 2,000 UNIT CAP PO SCH (09:04)
[2018-06-07] MEDS: ASCORBIC ACID 500 MG TAB PO SCH ×2 (09:05→20:47)
[2018-06-07] MEDS: FERROUS SULFATE (EC) 325 MG TAB PO SCH ×2 (09:05→20:47)
[2018-06-07] MEDS: METOPROLOL (XL) 25 MG TAB PO SCH ×2 (09:09→20:48)
[2018-06-07] MEDS: NIFEdipine (XL) 60 MG TAB PO SCH (09:10)
--- NOTE | 2018-06-07 10:21 | PN ---
Date/Time of Note Date/Time of Note DATE: 06/07/18 TIME: 10:09 Assessment/Plan VTE Prophylaxis Risk score (from Nsg)>0 risk: 3 SCD applied (from Ns): No SCD contraindicated: other Pharmacological prophylaxis: NA/contraindicated Pharm contraindication: low risk/ambulating Lines/Catheters IV Catheter Type (from [facility]): Saline Lock Urinary Cath still in place: Yes Reason Cath still needed: other (indicate) Assessment/Plan Hospital Course SUBJECTIVE: NO ACUTE OVERNIGHT EPISODES. OBJECTIVE: Vital signs-see below PHYSICAL EXAM: Constitutional: Well-developed, adequately built, lying in bed comfortably. Psych: nl mood/affect, no complaints Head: atraumatic, normocephalic Eyes: blind ENMT: mucosa pink and moist, nl external ears & nose Neck: non-tender, supple Respiratory: +Crackles bilaterally , normal air movement Cardiovascular: nl pulses, regular rate and rhythm Gastrointestinal: non-tender, soft, bowel sounds active in all 4 quadrants. Musculoskeletal/extremities: +3 pitting BLE. nl extremities to inspection, motor strength equal bilaterally, no focal deficit. Normal pulses,no cyanosisNeurological: Alert oriented 3,nl speech, nl strength Skin: nl turgor ASSESSMENT/PLAN: 58-year-old male with advanced CKD,htn,dm here with worsening BLE edema, renal fxn, htn who was referred by PCP to get admitted. 1. CKD, progressed to ESRD -Nephrology on board=>Recommended Hemodialysis initiation=>Pt and family now seems agreeable for starting HD. -f/u nephro recs regarding line placement and HD schedule.. 2. Hypertensive urgency. -ACEi/ARB on hold per nephro -now stable -cont.CCB/BB/Hydralazine -Started Cardura over weekend.. need to watch BP closely as he would be starting on HD soon and may need to deescalate antihypertensive regimen for HD tolerance. 3. Volume overload w/ESRD -s/p lasix -Fluid management per nephrology. 4. Subclinical hypothyroidism -defer outpt f/u 5. Vitamin D deficiency -on sup 6. Type 2 diabetes. -Stable glycemic trends. -Accu-Cheks/ISS/Lantus insulin. Stable glycemic trends. 7. Dyslipidemia -Continue statin 8. BPH -On Flomax 9.Diabetic retinopathy -supportive care,outpt f/u DVT prophylaxis: SCDs/ambulation PUD prophylaxis: Not indicated CODE STATUS: Full code Diet: Renal/carbohydrate controlled diet. Disposition: Follow-up nephrology recommendations. Monitor volume status closely. Patient was seen in collaboration with Dr. Marmolejo Result Diagram: 06/07/18 0506 06/07/18 0506 Results 24hrs Laboratory Tests Test 06/06/18 11:52 06/06/18 17:26 06/06/18 20:30 06/07/18 02:02 Bedside Glucose 205 163 171 108 Test 06/07/18 05:06 06/07/18 07:29 White Blood Count 4.5 L Red Blood Count 3.60 L Hemoglobin 9.8 L Hematocrit 31.9 L Mean Corpuscular 88.6 Volume Mean Corpuscular 27.2 L Hemoglobin Mean Corpuscular 30.7 L Hemoglobin Concent Red Cell 16.2 H Distribution Width Platelet Count 230 Mean Platelet Volume 10.1 Immature 0.400 Granulocytes % Neutrophils % 69.9 Lymphocytes % 12.6 L Monocytes % 11.0 Eosinophils % 4.8 Basophils % 1.3 Nucleated Red Blood 0.0 Cells % Immature 0.020 Granulocytes # Neutrophils # 3.2 Lymphocytes # 0.6 L Monocytes # 0.5 Eosinophils # 0.2 Basophils # 0.1 Nucleated Red Blood 0.0 Cells # Sodium Level 145 H Potassium Level 4.1 Chloride Level 111 H Carbon Dioxide Level 23 Anion Gap 11 Blood Urea Nitrogen 84 H Creatinine 6.59 H Est Glomerular 9 L Filtrat Rate mL/min Glucose Level 71 # Calcium Level 8.0 L Phosphorus Level 6.9 H Magnesium Level 2.5 Bedside Glucose 83 Exam/Review of Systems Exam Vitals Vital Signs Date Temp Pulse Resp B/P (MAP) Pulse Ox O2 O2 Flow FiO2 Time Delivery Rate 06/07/18 61 08:50 06/07/18 98.2 18 175/81 91 Nasal 08:15 (112) Cannula 06/07/18 2.0 03:51 Intake and Output 06/06/18 06/06/18 06/07/18 1515:00 23:00 07:00 IntakeIntake Total 250 ml 500 ml 550 ml OutputOutput Total 300 ml 300 ml BalanceBalance 250 ml 200 ml 250 ml Results Results 24hrs Laboratory Tests Test 06/06/18 11:52 06/06/18 17:26 06/06/18 20:30 06/07/18 02:02 Bedside Glucose 205 163 171 108 Test 06/07/18 05:06 06/07/18 07:29 White Blood Count 4.5 L Red Blood Count 3.60 L Hemoglobin 9.8 L Hematocrit 31.9 L Mean Corpuscular 88.6 Volume Mean Corpuscular 27.2 L Hemoglobin Mean Corpuscular 30.7 L Hemoglobin Concent Red Cell 16.2 H Distribution Width Platelet Count 230 Mean Platelet Volume 10.1 Immature 0.400 Granulocytes % Neutrophils % 69.9 Lymphocytes % 12.6 L Monocytes % 11.0 Eosinophils % 4.8 Basophils % 1.3 Nucleated Red Blood 0.0 Cells % Immature 0.020 Granulocytes # Neutrophils # 3.2 Lymphocytes # 0.6 L Monocytes # 0.5 Eosinophils # 0.2 Basophils # 0.1 Nucleated Red Blood 0.0 Cells # Sodium Level 145 H Potassium Level 4.1 Chloride Level 111 H Carbon Dioxide Level 23 Anion Gap 11 Blood Urea Nitrogen 84 H Creatinine 6.59 H Est Glomerular 9 L Filtrat Rate mL/min Glucose Level 71 # Calcium Level 8.0 L Phosphorus Level 6.9 H Magnesium Level 2.5 Bedside Glucose 83 Medications Medication Current Medications Nitroglycerin (Nitroglycerin (Sl Tab) 0.4 Mg) 1 tab Q5M UP TO 3 DOSES PRN SL .CHEST PAIN; Start 06/03/18 at 17:00 IV Flush (NS 3 ml) 3 ml PER PROTOCOL IV ; Start 06/03/18 at 20:30 Ondansetron HCl (Zofran Inj) 4 mg Q6H PRN IV NAUSEA/VOMITING; Start 06/03/18 at 20:30 Acetaminophen (Tylenol Tab) 650 mg Q6H PRN PO .PAIN 1-3 OR TEMP Last administered on 06/04/18at 09:02; Admin Dose 650 MG; Start 06/03/18 at 20:30 Docusate Sodium (Colace) 100 mg Q12H PRN PO .CONSTIPATION Last administered on 06/05/18at 20:40; Admin Dose 100 MG; Start 06/03/18 at 20:30 Bisacodyl (Dulcolax) 5 mg DAILY PRN PO .CONSTIPATION; Start 06/03/18 at 20:30 Atorvastatin Calcium (Lipitor) 40 mg QHS PO Last administered on 06/06/18at 20:40; Admin Dose 40 MG; Start 06/04/18 at 21:00 Ferrous Sulfate (Ferrous Sulfate (Ec)) 325 mg BID PO Last administered on 06/07/18at 09:05; Admin Dose 325 MG; Start 06/04/18 at 09:00; Stop 07/04/18 at 08:59 Hydralazine HCl (Apresoline) 10 mg Q4H PRN IV ELEVATED BLOOD PRESSURE Last adm inistered on 06/04/18at 01:41; Admin Dose 10 MG; Start 06/04/18 at 01:30 Ceftriaxone Sodium 50 ml @ 100 mls/hr Q24H IVPB Last administered on 06/06/18at 20:33; Admin Dose 100 MLS/HR; Start 06/04/18 at 20:00; Stop 06/11/18 at 19:59 Azithromycin 250 ml @ 250 mls/hr Q24H IVPB Last administered on 06/06/18at 21:21; Admin Dose 250 MLS/HR; Start 06/04/18 at 20:00; Stop 06/07/18 at 19:59 Diagnostic Test (Pha) (Accu-Chek) 1 ea 02 XX Last administered on 06/07/18at 02:08; Admin Dose 1 EA; Start 06/05/18 at 02:00 Insulin Aspart (Novolog Insulin Pen) NOVOLOG *MILD* ALGORITHM WITH MEALS BEDTIME SC Last administered on 06/06/18at 17:33; Admin Dose 1 UNIT; Start 06/04/18 at 08:30 Miscellaneous Information 1 ea NOTE XX ; Start 06/04/18 at 08:00 Glucose (Glutose) 15 gm Q15M PRN PO DECREASED GLUCOSE; Start 06/04/18 at 08:00 Glucose (Glutose) 22.5 gm Q15M PRN PO DECREASED GLUCOSE; Start 06/04/18 at 08 :00 Dextrose (D50w Syringe) 25 ml Q15M PRN IV DECREASED GLUCOSE; Start 06/04/18 at 08:00 Dextrose (D50w Syringe) 50 ml Q15M PRN IV DECREASED GLUCOSE Last administered on 06/05/18at 08:20; Admin Dose 50 ML; Start 06/04/18 at 08:00 Glucagon (Glucagen) 1 mg Q15M PRN IM DECREASED GLUCOSE; Start 06/04/18 at 08:00 Glucose (Glutose) 15 gm Q15M PRN BUCCAL DECREASED GLUCOSE; Start 06/04/18 at 08:00 Ergocalciferol (Drisdol) 50,000 unit Fr@09 PO Last administered on 06/04/18 11:43; Admin Dose 50,000 UNIT; Start 06/04/18 at 11:00 Nifedipine (Procardia Xl) 60 mg AM PO Last administered on 06/07/18 09:10; Admin Dose 60 MG; Start 06/05/18 at 09:00 Sevelamer Carbonate (Renvela) 800 mg WITH MEALS PO Last administered on 06/07/18 07:31; Admin Dose 800 MG; Start 06/05/18 at 08:30 Cholecalciferol (Vitamin D) 2,000 unit DAILY PO Last administered on 06/07/18 09:04; Admin Dose 2,000 UNIT; Start 06/05/18 at 14:00 Hydralazine HCl (Apresoline) 100 mg BID PO Last administered on 06/07/18 09:10; Admin Dose 100 MG; Start 06/06/18 at 21:00 Insulin Glargine (Lantus) 8 units HS SC Last administered on 06/06/18 20:49; Admin Dose 8 UNITS; Start 06/06/18 at 21:00 Metoprolol Succinate (Toprol Xl) 25 mg BID PO Last administered on 06/07/18 09:09; Admin Dose 25 MG; Start 06/06/18 at 21:00 Doxazosin Mesylate (Cardura) 4 mg HS PO Last administered on 06/06/18 20:41; Admin Dose 4 MG; Start 06/06/18 at 21:00 Ascorbic Acid (Vitamin C) 500 mg BID PO Last administered on 06/07/18 09:05; Admin Dose 500 MG; Start 06/06/18 at 21:00; Stop 07/06/18 at 20:59 GIAN PONCE NP Jun 07, 2018 10:20
--- NOTE | 2018-06-07 11:52 | CONS ---
Assessment/Plan Assessment/Plan Hospital Course (Demo Recall) IMPRESSION: 1. Increased BNP and shortness of breath, assess for congestive heart failure. 2. Hypertension. 3. Dyslipidemia. 4. Abnormal electrocardiogram, assess for acute coronary syndrome, lateral T- wave inversions. 5. Renal failure, severe. 6. Diabetes mellitus. 7. Anemia. 8. Benign prostatic hypertrophy. 9. Possible urinary retention. 10. CHF-systolic acute on chronic likely 11. cardiomyopathy-EF 40-45% Recc: -Tele -Continue toprol/hydralazine/cardura/procardia and follow-up bp after receiving all medications. Would uptitrate procardia if BP continues to be elevated -likely inititaion of HD Consultation Date/Type/Reason Admit Date/Time Jun 03, 2018 at 19:20 Initial Consult Date 06/04/18 Type of Consult Cardiology Reason for Consultation HTN/CHF Requesting Provider: ADELIA ARIAS Date/Time of Note DATE: 06/07/18 TIME: 11:50 Exam/Review of Systems Vital Signs Vitals Vital Signs Date Temp Pulse Resp B/P (MAP) Pulse Ox O2 O2 Flow FiO2 Time Delivery Rate 06/07/18 2.0 11:15 06/07/18 98.4 67 20 182/88 94 Nasal 11:14 (119) Cannula Intake and Output 06/06/18 06/06/18 06/07/18 1515:00 23:00 07:00 IntakeIntake Total 250 ml 500 ml 550 ml OutputOutput Total 300 ml 300 ml BalanceBalance 250 ml 200 ml 250 ml Exam Exam Review of Systems: CONSTITUTIONAL: No fevers, chills. PULMONARY: No sob CARDIOVASCULAR: No chest pain/palpitations GASTROINTESTINAL: No nausea/vomiting. GENITOURINARY: No hematuria/dysuria. MUSCULOSKELETAL: No myagias/arthalgias. PSYCHIATRIC: The patient denies depression. NEUROLOGIC: No weakness Constitutional: alert Psych: no complaints Head: normocephalic ENMT: mucosa pink and moist Neck: supple, jvd (9 cm water) Respiratory: diminished breath sounds (at bases/B) Cardiovascular: regular rate and rhythm Gastrointestinal: soft, non-tender Musculoskeletal: muscle tone (normal) Extremities: edema (none) Neurological: other (No focaol deficits) Labs Result Diagram: 06/07/18 0506 06/07/18 0506 Results 24hrs Laboratory Tests Test 06/06/18 11:52 06/06/18 17:26 06/06/18 20:30 06/07/18 02:02 Bedside Glucose 205 163 171 108 Test 06/07/18 05:06 06/07/18 07:29 White Blood Count 4.5 L Red Blood Count 3.60 L Hemoglobin 9.8 L Hematocrit 31.9 L Mean Corpuscular 88.6 Volume Mean Corpuscular 27.2 L Hemoglobin Mean Corpuscular 30.7 L Hemoglobin Concent Red Cell 16.2 H Distribution Width Platelet Count 230 Mean Platelet Volume 10.1 Immature 0.400 Granulocytes % Neutrophils % 69.9 Lymphocytes % 12.6 L Monocytes % 11.0 Eosinophils % 4.8 Basophils % 1.3 Nucleated Red Blood 0.0 Cells % Immature 0.020 Granulocytes # Neutrophils # 3.2 Lymphocytes # 0.6 L Monocytes # 0.5 Eosinophils # 0.2 Basophils # 0.1 Nucleated Red Blood 0.0 Cells # Sodium Level 145 H Potassium Level 4.1 Chloride Level 111 H Carbon Dioxide Level 23 Anion Gap 11 Blood Urea Nitrogen 84 H Creatinine 6.59 H Est Glomerular 9 L Filtrat Rate mL/min Glucose Level 71 # Calcium Level 8.0 L Phosphorus Level 6.9 H Magnesium Level 2.5 Bedside Glucose 83 Medications Medications Current Medications Nitroglycerin (Nitroglycerin (Sl Tab) 0.4 Mg) 1 tab Q5M UP TO 3 DOSES PRN SL .CHEST PAIN; Start 06/03/18 at 17:00 IV Flush (NS 3 ml) 3 ml PER PROTOCOL IV ; Start 06/03/18 at 20:30 Ondansetron HCl (Zofran Inj) 4 mg Q6H PRN IV NAUSEA/VOMITING; Start 06/03/18 at 20:30 Acetaminophen (Tylenol Tab) 650 mg Q6H PRN PO .PAIN 1-3 OR TEMP Last administered on 06/04/18at 09:02; Admin Dose 650 MG; Start 06/03/18 at 20:30 Docusate Sodium (Colace) 100 mg Q12H PRN PO .CONSTIPATION Last administered on 06/05/18at 20:40; Admin Dose 100 MG; Start 06/03/18 at 20:30 Bisacodyl (Dulcolax) 5 mg DAILY PRN PO .CONSTIPATION; Start 06/03/18 at 20:30 Atorvastatin Calcium (Lipitor) 40 mg QHS PO Last administered on 06/06/18at 20:40; Admin Dose 40 MG; Start 06/04/18 at 21:00 Ferrous Sulfate (Ferrous Sulfate (Ec)) 325 mg BID PO Last administered on 06/07/18at 09:05; Admin Dose 325 MG; Start 06/04/18 at 09:00; Stop 07/04/18 at 08:59 Hydralazine HCl (Apresoline) 10 mg Q4H PRN IV ELEVATED BLOOD PRESSURE Last administered on 06/04/18at 01:41; Admin Dose 10 MG; Start 06/04/18 at 01:30 Ceftriaxone Sodium 50 ml @ 100 mls/hr Q24H IVPB Last administered on 06/06/18at 20:33; Admin Dose 100 MLS/HR; Start 06/04/18 at 20:00; Stop 06/11/18 at 19:59 Azithromycin 250 ml @ 250 mls/hr Q24H IVPB Last administered on 06/06/18at 21:21; Admin Dose 250 MLS/HR; Start 06/04/18 at 20:00; Stop 06/07/18 at 19:59 Diagnostic Test (Pha) (Accu-Chek) 1 ea 02 XX Last administered on 06/07/18at 02:08; Admin Dose 1 EA; Start 06/05/18 at 02:00 Insulin Aspart (Novolog Insulin Pen) NOVOLOG *MILD* ALGORITHM WITH MEALS BEDTIM E SC Last administered on 06/06/18at 17:33; Admin Dose 1 UNIT; Start 06/04/18 at 08:30 Miscellaneous Information 1 ea NOTE XX ; Start 06/04/18 at 08:00 Glucose (Glutose) 15 gm Q15M PRN PO DECREASED GLUCOSE; Start 06/04/18 at 08:00 Glucose (Glutose) 22.5 gm Q15M PRN PO DECREASED GLUCOSE; Start 06/04/18 at 08:00 Dextrose (D50w Syringe) 25 ml Q15M PRN IV DECREASED GLUCOSE; Start 06/04/18 at 08:00 Dextrose (D50w Syringe) 50 ml Q15M PRN IV DECREASED GLUCOSE Last administered on 06/05/18at 08:20; Admin Dose 50 ML; Start 06/04/18 at 08:00 Glucagon (Glucagen) 1 mg Q15M PRN IM DECREASED GLUCOSE; Start 06/04/18 at 08:00 Glucose (Glutose) 15 gm Q15M PRN BUCCAL DECREASED GLUCOSE; Start 06/04/18 at 08:00 Ergocalciferol (Drisdol) 50,000 unit Fr@09 PO Last administered on 06/04/18 11:43; Admin Dose 50,000 UNIT; Start 06/04/18 at 11:00 Nifedipine (Procardia Xl) 60 mg AM PO Last administered on 06/07/18 09:10; Admin Dose 60 MG; Start 06/05/18 at 09:00 Sevelamer Carbonate (Renvela) 800 mg WITH MEALS PO Last administered on 06/07/18 07:31; Admin Dose 800 MG; Start 06/05/18 at 08:30 Cholecalciferol (Vitamin D) 2,000 unit DAILY PO Last administered on 06/07/18 09:04; Admin Dose 2,000 UNIT; Start 06/05/18 at 14:00 Hydralazine HCl (Apresoline) 100 mg BID PO Last administered on 06/07/18 09:10; Admin Dose 100 MG; Start 06/06/18 at 21:00 Insulin Glargine (Lantus) 8 units HS SC Last administered on 06/06/18 20:49; Admin Dose 8 UNITS; Start 06/06/18 at 21:00 Metoprolol Succinate (Toprol Xl) 25 mg BID PO Last administered on 06/07/18 09:09; Admin Dose 25 MG; Start 06/06/18 at 21:00 Doxazosin Mesylate (Cardura) 4 mg HS PO Last administered on 06/06/18 20:41; Admin Dose 4 MG; Start 06/06/18 at 21:00 Ascorbic Acid (Vitamin C) 500 mg BID PO Last administered on 06/07/18 09:05; Admin Dose 500 MG; Start 06/06/18 at 21:00; Stop 07/06/18 at 20:59 JAYCEE MYERS 25, 2019 11:52
--- NOTE | 2018-06-07 17:16 | PREAC ---
Date/Time of Note Date/Time of Note DATE: 06/07/18 TIME: 17:15 Anesthesia Eval and Record Evaluation Time Pre-Procedure Interview DATE: 06/07/18 TIME: 17:15 Age 58 Sex male NPO: 8 hrs Preoperative diagnosis PERMA CATH Planned procedure PERMA CATH INSERTION Past Medical History Past Medical History: Includes Cardio: HTN, Dyslipidemia, CHF Endo: Diabetes Renal: TRANG Heme: Anemia Surgery & Anesthesia Issues No known issue Meds Anticoagulation: No Beta Sarah within 24 hr: No Reason Beta Sarah not given: Pt. not on B-Sarah Reported Medications Epoetin Federico (Procrit) 10,000 Unit/1 Ml Vial, 77819 UNIT IJ Q1 WEEK, VIAL 06/03/18 Furosemide* (Furosemide*) 80 Mg Tablet, 80 MG PO BID, #60 TAB 06/03/18 Ferrous Sulfate* (Ferrous Sulfate*) 325 Mg Tabec, 325 MG PO BID, TAB 06/03/18 Glipizide* (Glipizide*) 10 Mg Tablet, 5 MG PO AC BREAKFAST DINNER, TAB 06/03/18 Insulin Glargine,Hum.rec.anlog (Basaglar Kwikpen U-100) 100 Unit/1 Ml Insuln.pen, 10 UNIT SC QHS, EA 06/03/18 Losartan Potassium* (Losartan Potassium*) 50 Mg Tablet, 50 MG PO DAILY, TAB 06/03/18 Atorvastatin* (Atorvastatin*) 40 Mg Tablet, 40 MG PO QHS, #30 TAB 06/03/18 Hydralazine Hcl* (Hydralazine Hcl*) 50 Mg Tab, 50 MG PO TID, #90 TAB 06/03/18 Tamsulosin Hcl* (Tamsulosin Hcl*) 0.4 Mg Cap.er.24h, 0.4 MG PO HS, CAP 06/03/18 Sitagliptin* (Januvia*) 100 Mg Tablet, 100 MG PO DAILY, #30 TAB 06/03/18 Discontinued Reported Medications Glipizide* (Glipizide*) 5 Mg Tablet, 5 MG PO AC BREAKFAST DINNER, TAB 06/03/18 [Ferrous Sulfate] No Conflict Check 01/29/18 [Glipizide] No Conflict Check 01/29/18 [Admelog Solostar] No Conflict Check 01/29/18 [Losartan] No Conflict Check 11/16/18 [Atorvastatin] No Conflict Check 01/29/18 [Hydralazine] No Conflict Check 01/29/18 [Albuterol Sulfate] No Conflict Check 01/29/18 [Furosemide] No Conflict Check 01/29/18 [Tamsulosin] No Conflict Check 01/29/18 Current Medications Nitroglycerin (Nitroglycerin (Sl Tab) 0.4 Mg) 1 tab Q5M UP TO 3 DOSES PRN SL .CHEST PAIN; Start 06/03/18 at 17:00 IV Flush (NS 3 ml) 3 ml PER PROTOCOL IV ; Start 06/03/18 at 20:30 Ondansetron HCl (Zofran Inj) 4 mg Q6H PRN IV NAUSEA/VOMITING; Start 06/03/18 at 20:30 Acetaminophen (Tylenol Tab) 650 mg Q6H PRN PO .PAIN 1-3 OR TEMP Last administer ed on 06/04/18at 09:02; Admin Dose 650 MG; Start 06/03/18 at 20:30 Docusate Sodium (Colace) 100 mg Q12H PRN PO .CONSTIPATION Last administered on 06/05/18at 20:40; Admin Dose 100 MG; Start 06/03/18 at 20:30 Bisacodyl (Dulcolax) 5 mg DAILY PRN PO .CONSTIPATION; Start 06/03/18 at 20:30 Atorvastatin Calcium (Lipitor) 40 mg QHS PO Last administered on 06/06/18at 20:40; Admin Dose 40 MG; Start 06/04/18 at 21:00 Ferrous Sulfate (Ferrous Sulfate (Ec)) 325 mg BID PO Last administered on 06/07/18at 09:05; Admin Dose 325 MG; Start 06/04/18 at 09:00; Stop 07/04/18 at 08:59 Hydralazine HCl (Apresoline) 10 mg Q4H PRN IV ELEVATED BLOOD PRESSURE Last administered on 06/04/18at 01:41; Admin Dose 10 MG; Start 06/04/18 at 01:30 Ceftriaxone Sodium 50 ml @ 100 mls/hr Q24H IVPB Last administered on 06/06/18at 20:33; Admin Dose 100 MLS/HR; Start 06/04/18 at 20:00; Stop 06/11/18 at 19:59 Azithromycin 250 ml @ 250 mls/hr Q24H IVPB Last administered on 06/06/18 21:21; Admin Dose 250 MLS/HR; Start 06/04/18 at 20:00; Stop 06/07/18 at 19:59 Diagnostic Test (Pha) (Accu-Chek) 1 ea 02 XX Last administered on 06/07/18at 02:08; Admin Dose 1 EA; Start 06/05/18 at 02:00 Insulin Aspart (Novolog Insulin Pen) NOVOLOG *MILD* ALGORITHM WITH MEALS BEDTIME SC Last administered on 06/07/18 12:05; Admin Dose 2 UNIT; Start 06/04/18 at 08:30 Miscellaneous Information 1 ea NOTE XX ; Start 06/04/18 at 08:00 Glucose (Glutose) 15 gm Q15M PRN PO DECREASED GLUCOSE; Start 06/04/18 at 08:00 Glucose (Glutose) 22.5 gm Q15M PRN PO DECREASED GLUCOSE; Start 06/04/18 at 08:00 Dextrose (D50w Syringe) 25 ml Q15M PRN IV DECREASED GLUCOSE; Start 06/04/18 at 08:00 Dextrose (D50w Syringe) 50 ml Q15M PRN IV DECREASED GLUCOSE Last administered on 06/05/18 08:20; Admin Dose 50 ML; Start 06/04/18 at 08:00 Glucagon (Glucagen) 1 mg Q15M PRN IM DECREASED GLUCOSE; Start 06/04/18 at 08:00 Glucose (Glutose) 15 gm Q15M PRN BUCCAL DECREASED GLUCOSE; Start 06/04/18 at 08:00 Ergocalciferol (Drisdol) 50,000 unit Fr@09 PO Last administered on 06/04/18at 11:43; Admin Dose 50,000 UNIT; Start 06/04/18 at 11:00 Nifedipine (Procardia Xl) 60 mg AM PO Last administered on 06/07/18 09:10; Admin Dose 60 MG; Start 06/05/18 at 09:00 Sevelamer Carbonate (Renvela) 800 mg WITH MEALS PO Last administered on 06/07/18 12:01; Admin Dose 800 MG; Start 06/05/18 at 08:30 Cholecalciferol (Vitamin D) 2,000 unit DAILY PO Last administered on 06/07/18 09:04; Admin Dose 2,000 UNIT; Start 06/05/18 at 14:00 Hydralazine HCl (Apresoline) 100 mg BID PO Last administered on 06/07/18at 09:10; Admin Dose 100 MG; Start 06/06/18 at 21:00 Insulin Glargine (Lantus) 8 units HS SC Last administered on 06/06/18at 20:49; Admin Dose 8 UNITS; Start 06/06/18 at 21:00 Metoprolol Succinate (Toprol Xl) 25 mg BID PO Last administered on 06/07/18 09:09; Admin Dose 25 MG; Start 06/06/18 at 21:00 Doxazosin Mesylate (Cardura) 4 mg HS PO Last administered on 06/06/18at 20:41; Admin Dose 4 MG; Start 06/06/18 at 21:00 Ascorbic Acid (Vitamin C) 500 mg BID PO Last administered on 06/07/18 09:05; Admin Dose 500 MG; Start 06/06/18 at 21:00; Stop 07/06/18 at 20:59 Meds reviewed: Yes Allergies Coded Allergies: No Known Allergy (Unverified , 06/03/18) Allergies Reviewed: Yes Labs/Studies Labs Reviewed: Reviewed by anesthesiologist Result Diagram: 06/07/18 0506 06/07/18 0506 Laboratory Tests 06/07/18 05:06 test: N/A Studies: ECG (NSR), CXR (There is a right lower lobe infiltrate and small to moderate right pleural effusion. There is a trace left pleural effusion. The heart is enlarged. The thoracic aorta is calcified.), 2D Echo (EF 40%) Pre-procedure Exam Last vitals Vital Signs Date Temp Pulse Resp B/P (MAP) Pulse Ox O2 O2 Flow FiO2 Time Delivery Rate 06/07/18 99.1 65 18 161/82 94 Nasal 15:26 (108) Cannula 06/07/18 2.0 11:15 Airway: Adequate mouth opening Mallampati: Mallampati II Teeth: Normal Lung: Normal Heart: Normal ASA Physical Status ASA physical status: 3 Emergency: None Planned Anesthetic General/MAC: MAC Pre-operative Attestations Prior to commencing anesthesia and surgery, the patient was re-evaluated, there was verification of: *The patient's identity *The results of appropriate recent lab work and preoperative vital signs *The above evaluation not changing prior to induction *Anesthetic plan, risk benefits, alternative and complications discussed with patient/family; questions answered; patient/family understands, accepts and wishes to proceed. SHIRA SUTTON Jun 07, 2018 17:16
[2018-06-07] MEDS: CEFTRIAXONE 1 GM/50 ML (PMX) 50 ML IVPB SCH (20:47)
[2018-06-07] MEDS: DOXAZOSIN 4 MG TAB PO SCH (20:48)
[2018-06-07] MEDS: ATORVASTATIN 40 MG TAB PO SCH (20:48)
[2018-06-07] MEDS: INSULIN GLARGINE [LANTus] (100 UNITS/ML) SYG SC SCH (20:54)
[2018-06-08] VITALS (19 sets, daily range): BP systolic 134–168; BP diastolic 61–84; PULSE 58–77; RESP 18–20
[2018-06-08] MEDS: ACCU-CHEK XX SCH (02:00)
[2018-06-08] MEDS: INSULIN ASPART [NOVOLOG] 3 ML PEN SC SCH ×4 (08:00→20:33)
[2018-06-08] MEDS: SEVELAMER CARBONATE 800 MG TABLET PO SCH ×3 (08:00→18:15)
[2018-06-08] MEDS: NIFEdipine (XL) 60 MG TAB PO SCH (09:10)
[2018-06-08] MEDS: ASCORBIC ACID 500 MG TAB PO SCH ×2 (09:10→22:52)
[2018-06-08] MEDS: CHOLECALCIFEROL 2,000 UNIT CAP PO SCH (09:11)
[2018-06-08] MEDS: METOPROLOL (XL) 25 MG TAB PO SCH ×2 (09:11→22:54)
[2018-06-08] MEDS: FERROUS SULFATE (EC) 325 MG TAB PO SCH ×2 (09:12→22:52)
[2018-06-08] MEDS ORDERED: CALCITRIOL 1 MCG INJ IV ONE (10:00)
[2018-06-08] MEDS ORDERED: MIDAZOLAM 1 MG/ML 2 ML INJ ONE (10:04)
[2018-06-08] MEDS ORDERED: HEPARIN 1000 UNITS/NS (A-LINE) 1,000 ML ONE (10:04)
[2018-06-08] MEDS ORDERED: HEPARIN 1000 UNITS/ML 10 ML INJ ONE (10:04)
[2018-06-08] MEDS ORDERED: FENTAnyl 50 MCG/ML VIAL ONE (10:04)
[2018-06-08] MEDS ORDERED: LIDOCAINE 1% (MDV) 20 ML INJ ONE (10:04)
--- NOTE | 2018-06-08 10:33 | PN ---
DATE: 06/08/2018 SUBJECTIVE: The patient is stable, no events overnight. The patient is pending Perm-A-Cath placemen t. No other events noted. OBJECTIVE: VITAL SIGNS: Blood pressure is 163/71, respirations 19, pulse 67, temperature 98.4. HEENT: Head is normocephalic. NECK: Supple. HEART: Regular rate. LUNGS: Show diminished breath sounds at the base. ABDOMEN: Soft, nontender to palpation. No rebound or guarding. EXTREMITIES: Negative for clubbing, cyanosis, no edema. DERMATOLOGIC: No rashes. MUSCULOSKELETAL: No joint effusion. NEUROLOGIC: No change in exam. MEDICATIONS: Reviewed. LABORATORY DATA: Shows sodium 145, BUN 80, creatinine 6.5, phosphorus 6.7, calcium 8.0. White count 4.8, hemoglobin 9.8, platelet count is 220. ASSESSMENT AND PLAN: 1. Chronic kidney disease stage IV, now progression towards end-stage renal disease. The patient is pending Perm-A-Cath placement following Perm-A-Cath placement. The patient will be dialyzed for 2 h ours on 3 K bath, calcium 2.5. Anticipate daily dialysis for solute clearance and volume removal. 2. Hypernatremia. Continue to encourage free water intake. 3. Anemia. Continue to monitor hemoglobin and hematocrit levels. We will continue Epogen. 4. Mineral bone disorder, monitor calcium and phosphorus levels. 5. Volume overload, improved. 6. Hypertension. Continue current blood pressure regimen. 7. Possible pneumonia. The patient is completing antibiotic course. 8. Diabetes. Continue current insulin regimen. 9. Dyslipidemia. Continue statin therapy. 10. 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 Continue to monitor. Dictated By: PEPITO CRISTOBAL DO NR/NTS Conf#: [id number] DID#: [id number] CC: ADELIA ARIAS MD; DANGELO PERDUE MD;*EndCC*
--- NOTE | 2018-06-08 10:56 | PN ---
Date/Time of Note Date/Time of Note DATE: 06/08/18 TIME: 10:53 Assessment/Plan VTE Prophylaxis Risk score (from Nsg)>0 risk: 3 SCD applied (from Ns): No SCD contraindicated: other Pharmacological prophylaxis: NA/contraindicated Pharm contraindication: low risk/ambulating Lines/Catheters IV Catheter Type (from [facility]): Saline Lock Urinary Cath still in place: Yes Reason Cath still needed: other (indicate) Assessment/Plan Hospital Course SUBJECTIVE: Patient is scheduled for dialysis catheter placement today. No acute distress. OBJECTIVE: Vital signs-see below PHYSICAL EXAM: Constitutional: Well-developed, adequately built, lying in bed comfortably. Psych: nl mood/affect, no complaints Head: atraumatic, normocephalic Eyes: blind ENMT: mucosa pink and moist, nl external ears & nose Neck: non-tender, supple Respiratory: +Crackles bilaterally-improved , normal air movement Cardiovascular: nl pulses, regular rate and rhythm Gastrointestinal: non-tender, soft, bowel sounds active in all 4 quadrants. Musculoskeletal/extremities: +3 pitting BLE-improving. nl extremities to inspection, motor strength equal bilaterally, no focal deficit. Normal pulses,no cyanosisNeurological: Alert oriented 3,nl speech, nl strength Skin: nl turgor ASSESSMENT/PLAN: 58-year-old male with advanced CKD,htn,dm here with worsening BLE edema, renal fxn, htn who was referred by PCP to get admitted. 1. CKD, progressed to ESRD -Nephrology on board=> finally patient agreed to initiate hemodialysis and he is getting a permacath today -attending psychiatrist to manage 2. Essential hypertension. -ACEi/ARB on hold per nephro, hopefully this can be started after dialysis initiation -on.CCB/BB/Hydralazine/cardura=> once started on hemodialysis, patient might drop his blood pressure and we will be closely monitoring this for dose adjustments. 3. Volume overload w/ESRD -Fluid management/UF per nephro 4. Subclinical hypothyroidism -defer outpt f/u 5. Vitamin D deficiency -on sup 6. Type 2 diabetes. -Stable glycemic trends. -Accu-Cheks/ISS/Lantus insulin. 7. Dyslipidemia -Continue statin 8. BPH -On Flomax 9.Diabetic retinopathy -supportive care,outpt f/u DVT prophylaxis: SCDs/ambulation PUD prophylaxis: Not indicated CODE STATUS: Full code Diet: Renal/carbohydrate controlled diet. Disposition: Follow-up nephrology recommendations. Monitor volume status closely. Patient was seen in collaboration with Dr. Marmolejo Result Diagram: 06/08/1852506/08/18525 Results 24hrs Laboratory Tests Test 06/07/18 11:13 06/07/18 12:00 06/07/18 14:12 06/07/18 17:08 Prothrombin Time 14.0 13.3 Prothrombin Time 1.1 1.0 Ratio INR International 1.07 1.00 Normalized Ratio Bedside Glucose 210 112 Activated 33.7 Partial Thromboplast Time Test 06/07/18 20:46 06/08/18 05:26 06/08/18 08:25 Bedside Glucose 143 108 White Blood Count 4.8 Red Blood Count 3.59 L Hemoglobin 9.8 L Hematocrit 31.9 L Mean Corpuscular 88.9 Volume Mean Corpuscular 27.3 L Hemoglobin Mean Corpuscular 30.7 L Hemoglobin Concent Red Cell 16.1 H Distribution Width Platelet Count 220 Mean Platelet Volume 10.5 H Immature 0.400 Granulocytes % Neutrophils % 71.8 Lymphocytes % 11.9 L Monocytes % 10.0 Eosinophils % 4.4 Basophils % 1.5 Nucleated Red Blood 0.0 Cells % Immature 0.020 Granulocytes # Neutrophils # 3.4 Lymphocytes # 0.6 L Monocytes # 0.5 Eosinophils # 0.2 Basophils # 0.1 Nucleated Red Blood 0.0 Cells # Sodium Level 145 H Potassium Level 4.1 Chloride Level 108 Carbon Dioxide Level 24 Anion Gap 13 Blood Urea Nitrogen 80 H Creatinine 6.50 H Est Glomerular 9 L Filtrat Rate mL/min Glucose Level 106 Calcium Level 8.0 L Phosphorus Level 6.7 H Magnesium Level 2.4 Exam/Review of Systems Exam Vitals Vital Signs Date Temp Pulse Resp B/P (MAP) Pulse Ox O2 O2 Flow FiO2 Time Delivery Rate 06/08/18 65 08:49 06/08/18 98.4 19 163/71 91 Nasal 2.0 07:04 (101) Cannula Intake and Output 06/07/18 06/07/18 06/08/18 1515:00 23:00 07:00 IntakeIntake Total 240 ml 360 ml 250 ml OutputOutput Total 400 ml 250 ml BalanceBalance 240 ml -40 ml 0 ml Results Results 24hrs Laboratory Tests Test 06/07/18 11:13 06/07/18 12:00 06/07/18 14:12 06/07/18 17:08 Prothrombin Time 14.0 13.3 Prothrombin Time 1.1 1.0 Ratio INR International 1.07 1.00 Normalized Ratio Bedside Glucose 210 112 Activated 33.7 Partial Thromboplast Time Test 06/07/18 20:46 06/08/18 05:26 06/08/18 08:25 Bedside Glucose 143 108 White Blood Count 4.8 Red Blood Count 3.59 L Hemoglobin 9.8 L Hematocrit 31.9 L Mean Corpuscular 88.9 Volume Mean Corpuscular 27.3 L Hemoglobin Mean Corpuscular 30.7 L Hemoglobin Concent Red Cell 16.1 H Distribution Width Platelet Count 220 Mean Platelet Volume 10.5 H Immature 0.400 Granulocytes % Neutrophils % 71.8 Lymphocytes % 11.9 L Monocytes % 10.0 Eosinophils % 4.4 Basophils % 1.5 Nucleated Red Blood 0.0 Cells % Immature 0.020 Granulocytes # Neutrophils # 3.4 Lymphocytes # 0.6 L Monocytes # 0.5 Eosinophils # 0.2 Basophils # 0.1 Nucleated Red Blood 0.0 Cells # Sodium Level 145 H Potassium Level 4.1 Chloride Level 108 Carbon Dioxide Level 24 Anion Gap 13 Blood Urea Nitrogen 80 H Creatinine 6.50 H Est Glomerular 9 L Filtrat Rate mL/min Glucose Level 106 Calcium Level 8.0 L Phosphorus Level 6.7 H Magnesium Level 2.4 Medications Medication Current Medications Nitroglycerin (Nitroglycerin (Sl Tab) 0.4 Mg) 1 tab Q5M UP TO 3 DOSES PRN SL .CHEST PAIN; Start 06/03/18 at 17:00 IV Flush (NS 3 ml) 3 ml PER PROTOCOL IV ; Start 06/03/18 at 20:30 Ondansetron HCl (Zofran Inj) 4 mg Q6H PRN IV NAUSEA/VOMITING; Start 06/03/18 at 20:30 Acetaminophen (Tylenol Tab) 650 mg Q6H PRN PO .PAIN 1-3 OR TEMP Last administered on 06/04/18at 09:02; Admin Dose 650 MG; Start 06/03/18 at 20:30 Docusate Sodium (Colace) 100 mg Q12H PRN PO .CONSTIPATION Last administered on 06/05/18at 20:40; Admin Dose 100 MG; Start 06/03/18 at 20:30 Bisacodyl (Dulcolax) 5 mg DAILY PRN PO .CONSTIPATION; Start 06/03/18 at 20:30 Atorvastatin Calcium (Lipitor) 40 mg QHS PO Last administered on 06/07/18at 20:48; Admin Dose 40 MG; Start 06/04/18 at 21:00 Ferrous Sulfate (Ferrous Sulfate (Ec)) 325 mg BID PO Last administered on 06/08/18at 09:12; Admin Dose 325 MG; Start 06/04/18 at 09:00; Stop 07/04/18 at 08:59 Hydralazine HCl (Apresoline) 10 mg Q4H PRN IV ELEVATED BLOOD PRESSURE Last administered on 06/04/18at 01:41; Admin Dose 10 MG; Start 06/04/18 at 01:30 Ceftriaxone Sodium 50 ml @ 100 mls/hr Q24H IVPB Last administered on 06/07/18at 20:47; Admin Dose 100 MLS/HR; Start 06/04/18 at 20:00; Stop 06/11/18 at 19:59 Diagnostic Test (Pha) (Accu-Chek) 1 ea 02 XX Last administered on 06/07/18at 02:08; Admin Dose 1 EA; Start 06/05/18 at 02:00 Insulin Aspart (Novolog Insulin Pen) NOVOLOG *MILD* ALGORITHM WITH MEALS BEDTIME SC Last administered on 06/07/18at 12:05; Admin Dose 2 UNIT; Start 06/04/18 at 08:30 Miscellaneous Information 1 ea NOTE XX ; Start 06/04/18 at 08:00 Glucose (Glutose) 15 gm Q15M PRN PO DECREASED GLUCOSE; Start 06/04/18 at 08:00 Glucose (Glutose) 22.5 gm Q15M PRN PO DECREASED GLUCOSE; Start 06/04/18 at 08:00 Dextrose (D50w Syringe) 25 ml Q15M PRN IV DECREASED GLUCOSE; Start 06/04/18 at 08:00 Dextrose (D50w Syringe) 50 ml Q15M PRN IV DECREASED GLUCOSE Last administered on 06/05/18at 08:20; Admin Dose 50 ML; Start 06/04/18 at 08:00 Glucagon (Glucagen) 1 mg Q15M PRN IM DECREASED GLUCOSE; Start 06/04/18 at 08:00 Glucose (Glutose) 15 gm Q15M PRN BUCCAL DECREASED GLUCOSE; Start 06/04/18 at 08:00 Ergocalciferol (Drisdol) 50,000 unit Fr@09 PO Last administered on 06/04/18 11:43; Admin Dose 50,000 UNIT; Start 06/04/18 at 11:00 Nifedipine (Procardia Xl) 60 mg AM PO Last administered on 06/08/18 09:10; Admin Dose 60 MG; Start 06/05/18 at 09:00 Sevelamer Carbonate (Renvela) 800 mg WITH MEALS PO Last administered on 06/07/18 17:22; Admin Dose 800 MG; Start 06/05/18 at 08:30 Cholecalciferol (Vitamin D) 2,000 unit DAILY PO Last administered on 06/08/18 09:11; Admin Dose 2,000 UNIT; Start 06/05/18 at 14:00 Hydralazine HCl (Apresoline) 100 mg BID PO Last administered on 06/08/18 09:11; Admin Dose 100 MG; Start 06/06/18 at 21:00 Insulin Glargine (Lantus) 8 units HS SC Last administered on 06/06/18 20:49; Admin Dose 8 UNITS; Start 06/06/18 at 21:00 Metoprolol Succinate (Toprol Xl) 25 mg BID PO Last administered on 06/08/18 09:11; Admin Dose 25 MG; Start 06/06/18 at 21:00 Doxazosin Mesylate (Cardura) 4 mg HS PO Last administered on 06/07/18 20:48; Admin Dose 4 MG; Start 06/06/18 at 21:00 Ascorbic Acid (Vitamin C) 500 mg BID PO Last administered on 06/08/18 09:10; Admin Dose 500 MG; Start 06/06/18 at 21:00; Stop 07/06/18 at 20:59 GIAN PONCE NP Jun 08, 2018 10:56
--- NOTE | 2018-06-08 11:14 | HPN ---
Date/Time of Note Date/Time of Note DATE: 06/08/18 TIME: 11:13 Interval H&P Admission Note Pt. seen H&P reviewed: Systems changes noted below Seen by cardiolgy for possible ACS. Will do procedure with local anesthesia only. ANNIE DENT MD Jun 08, 2018 11:14
--- NOTE | 2018-06-08 11:17 | RADRPT ---
PROCEDURE: PLACEMENT OF RIGHT INTERNAL JUGULAR VENOUS TUNNELED DIALYSIS CATHETER. CLINICAL INDICATION: Renal failure. TECHNIQUE: Prior to the procedure, informed consent was obtained. Risks including bleeding, infection, and pneum othorax were explained to the patient and/or the patient's family. The patient and/or the patient's f amily understood and was willing to proceed. A procedural pause was performed. The patient's name, da te of , and procedure to be performed were verified. The central line was inserted with all [place] ents of maximal sterile barrier technique. All of the following were used: head covering, facial mask , sterile gown, sterile gloves, a large sterile sheet, hand hygiene, and 2% chlorhexidine for cutane ous antisepsis. The right neck and anterior/superior chest wall was prepped and draped in usual ster ile fashion. Limited sonography of the right neck was then performed. Noted is a patent right internal jugular vei n. Ultrasound images were recorded and stored in the patient's medical record. Following the local injection of Xylocaine, the right internal jugular vein was punctured under sonog raphic guidance with a 20-gauge needle through which a 0.018 inch floppy tip guidewire was advanced i nto the superior vena cava. The tract was dilated to 5 Japanese and the wire was then replaced with a 0 .035 in Amplatz guidewire. A tunnel was then created from the anterior lateral aspect of the superio r right chest wall to the puncture site in the neck and the catheter was pulled through the tract. S erial dilatation was then performed and a 16 Japanese peel away sheath was introduced. The 14.5 Japanese 23cm tip to cuff Angiodynamics BioFlo DuraMax dialysis catheter was advanced through the 16 Japanese p eel-away sheath. The tip of the catheter was confirmed in position within the right atrium. The peel- away sheath was removed. The 2 ports were each flushed with 2.3 ml of 1:1000 heparin. The catheter w as secured to the skin with 2-0 silk. The wound in the neck was closed with 4-0 Vicryl suture using subcuticular running technique. The site was dressed. The patient tolerated the proced ure well. Specimens: None. Blood loss: 5 ml. Complications: None. Rough Patcher: Evans Patel. Anesthesia: Local anesthesia. No sedation. Graft/Implant: Tunneled dialysis catheter. COMPARISON: None. FINDINGS: Final radiographic images demonstrate the tip of the catheter in the upper right atrium. A total of 0.3 minutes of fluoroscopy time was used. The ultrasound images demonstrate the needle entering the jugular vein. Ultrasound images were recorded and stored in the patient's medical record. 5 images o f the chest were obtained with image intensifier. IMPRESSION: 1. Percutaneous insertion of right internal jugular dialysis tunneled dialysis catheter under fluoros copic and sonographic guidance. RPTAT: QQ .Rai Welch MD, Date Time Electronically viewed and signed by .Rai Welch MD, on 06/08/2018 11:17 .R/
--- NOTE | 2018-06-08 13:57 | CONS ---
Consult Date/Type/Reason Admit Date/Time Jun 03, 2018 at 19:20 Initial Consult Date 06/04/18 Type of Consultation: Urology Requesting Provider: ADELIA ARIAS Date/Time of Note DATE: 06/08/18 TIME: 13:55 Subjective NO acute events - pt stable - perm-a-cath placed - HD to follow ROS: No fever, no chills, no nausea, no vomiting, no diarrhea/constipation No recent weight changes No chest pain, no PND, no orthopnea - mild SOB No dizziness, blurred vision No thirst, no heat or cold intolerance Objective Vitals Vital Signs Date Temp Pulse Resp B/P (MAP) Pulse Ox O2 O2 Flow FiO2 Time Delivery Rate 06/08/18 97.5 69 19 159/70 94 Nasal 2.0 13:23 (99) Cannula Intake and Output 06/07/18 06/07/18 06/08/18 1515:00 23:00 07:00 IntakeIntake Total 240 ml 360 ml 250 ml OutputOutput Total 400 ml 250 ml BalanceBalance 240 ml -40 ml 0 ml Exam General: WN/WD/NAD, AOx 3 HEENT: Unicetric/atraumatic/EOMI (follows commands) NECK: JVD elevated, no thyromegaly Lymph: no lymphadenopathy HEART: regular with no S3, II/ systolic murmur at apex, PMI L LUNGS: Coarse sounds ABD: soft, NT, ND, +BS : Intact Neuro: non focal SKIN: chronic changes EXT: trace edema Results/Medications Result Diagram: 06/08/18 0506/08/18 0526 Results 24 hrs Laboratory Tests Test 06/07/18 14:12 06/07/18 17:08 06/07/18 20:46 06/08/18 05:26 Prothrombin Time 13.3 Prothrombin Time 1.0 Ratio INR International 1.00 Normalized Ratio Activated 33.7 Partial Thromboplast Time Bedside Glucose 112 143 White Blood Count 4.8 Red Blood Count 3.59 L Hemoglobin 9.8 L Hematocrit 31.9 L Mean Corpuscular 88.9 Volume Mean Corpuscular 27.3 L Hemoglobin Mean Corpuscular 30.7 L Hemoglobin Concent Red Cell 16.1 H Distribution Width Platelet Count 220 Mean Platelet Volume 10.5 H Immature 0.400 Granulocytes % Neutrophils % 71.8 Lymphocytes % 11.9 L Monocytes % 10.0 Eosinophils % 4.4 Basophils % 1.5 Nucleated Red Blood 0.0 Cells % Immature 0.020 Granulocytes # Neutrophils # 3.4 Lymphocytes # 0.6 L Monocytes # 0.5 Eosinophils # 0.2 Basophils # 0.1 Nucleated Red Blood 0.0 Cells # Sodium Level 145 H Potassium Level 4.1 Chloride Level 108 Carbon Dioxide Level 24 Anion Gap 13 Blood Urea Nitrogen 80 H Creatinine 6.50 H Est Glomerular 9 L Filtrat Rate mL/min Glucose Level 106 Calcium Level 8.0 L Phosphorus Level 6.7 H Magnesium Level 2.4 Test 06/08/18 08:25 06/08/18 12:17 Bedside Glucose 108 100 Home Meds Reported Medications Epoetin Federico (Procrit) 10,000 Unit/1 Ml Vial, 07725 UNIT IJ Q1 WEEK, VIAL 06/03/18 Furosemide* (Furosemide*) 80 Mg Tablet, 80 MG PO BID, #60 TAB 06/03/18 Ferrous Sulfate* (Ferrous Sulfate*) 325 Mg Tabec, 325 MG PO BID, TAB 06/03/18 Glipizide* (Glipizide*) 10 Mg Tablet, 5 MG PO AC BREAKFAST DINNER, TAB 06/03/18 Insulin Glargine,Hum.rec.anlog (Basaglar Kwikpen U-100) 100 Unit/1 Ml Insuln.pen, 10 UNIT SC QHS, EA 06/03/18 Losartan Potassium* (Losartan Potassium*) 50 Mg Tablet, 50 MG PO DAILY, TAB 06/03/18 Atorvastatin* (Atorvastatin*) 40 Mg Tablet, 40 MG PO QHS, #30 TAB 06/03/18 Hydralazine Hcl* (Hydralazine Hcl*) 50 Mg Tab, 50 MG PO TID, #90 TAB 06/03/18 Tamsulosin Hcl* (Tamsulosin Hcl*) 0.4 Mg Cap.er.24h, 0.4 MG PO HS, CAP 06/03/18 Sitagliptin* (Januvia*) 100 Mg Tablet, 100 MG PO DAILY, #30 TAB 06/03/18 Discontinued Reported Medications Glipizide* (Glipizide*) 5 Mg Tablet, 5 MG PO AC BREAKFAST DINNER, TAB 06/03/18 [Ferrous Sulfate] No Conflict Check 01/29/18 [Glipizide] No Conflict Check 01/29/18 [Admelog Solostar] No Conflict Check 01/29/18 [Losartan] No Conflict Check 01/29/18 [Atorvastatin] No Conflict Check 01/29/18 [Hydralazine] No Conflict Check 01/29/18 [Albuterol Sulfate] No Conflict Check 01/29/18 [Furosemide] No Conflict Check 01/29/18 [Tamsulosin] No Conflict Check 01/29/18 Medications Current Medications Nitroglycerin (Nitroglycerin (Sl Tab) 0.4 Mg) 1 tab Q5M UP TO 3 DOSES PRN SL .CHEST PAIN; Start 06/03/18 at 17:00 IV Flush (NS 3 ml) 3 ml PER PROTOCOL IV ; Start 06/03/18 at 20:30 Ondansetron HCl (Zofran Inj) 4 mg Q6H PRN IV NAUSEA/VOMITING; Start 06/03/18 at 20:30 Acetaminophen (Tylenol Tab) 650 mg Q6H PRN PO .PAIN 1-3 OR TEMP Last administer ed on 06/04/18 09:02; Admin Dose 650 MG; Start 06/03/18 at 20:30 Docusate Sodium (Colace) 100 mg Q12H PRN PO .CONSTIPATION Last administered on 06/05/18 20:40; Admin Dose 100 MG; Start 06/03/18 at 20:30 Bisacodyl (Dulcolax) 5 mg DAILY PRN PO .CONSTIPATION; Start 06/03/18 at 20:30 Atorvastatin Calcium (Lipitor) 40 mg QHS PO Last administered on 06/07/18 20:48; Admin Dose 40 MG; Start 06/04/18 at 21:00 Ferrous Sulfate (Ferrous Sulfate (Ec)) 325 mg BID PO Last administered on 06/08/18 09:12; Admin Dose 325 MG; Start 06/04/18 at 09:00; Stop 07/04/18 at 08:59 Hydralazine HCl (Apresoline) 10 mg Q4H PRN IV ELEVATED BLOOD PRESSURE Last administered on 06/04/18 01:41; Admin Dose 10 MG; Start 06/04/18 at 01:30 Ceftriaxone Sodium 50 ml @ 100 mls/hr Q24H IVPB Last administered on 06/07/18 20:47; Admin Dose 100 MLS/HR; Start 06/04/18 at 20:00; Stop 06/11/18 at 19:59 Diagnostic Test (Pha) (Accu-Chek) 1 ea 02 XX Last administered on 06/07/18at 02:08; Admin Dose 1 EA; Start 06/05/18 at 02:00 Insulin Aspart (Novolog Insulin Pen) NOVOLOG *MILD* ALGORITHM WITH MEALS BEDTIME SC Last administered on 06/07/18 12:05; Admin Dose 2 UNIT; Start 06/04/18 at 08:30 Miscellaneous Information 1 ea NOTE XX ; Start 06/04/18 at 08:00 Glucose (Glutose) 15 gm Q15M PRN PO DECREASED GLUCOSE; Start 06/04/18 at 08:00 Glucose (Glutose) 22.5 gm Q15M PRN PO DECREASED GLUCOSE; Start 06/04/18 at 08:00 Dextrose (D50w Syringe) 25 ml Q15M PRN IV DECREASED GLUCOSE; Start 06/04/18 at 08:00 Dextrose (D50w Syringe) 50 ml Q15M PRN IV DECREASED GLUCOSE Last administered on 06/05/18at 08:20; Admin Dose 50 ML; Start 06/04/18 at 08:00 Glucagon (Glucagen) 1 mg Q15M PRN IM DECREASED GLUCOSE; Start 06/04/18 at 08:00 Glucose (Glutose) 15 gm Q15M PRN BUCCAL DECREASED GLUCOSE; Start 06/04/18 at 08:00 Ergocalciferol (Drisdol) 50,000 unit Fr@09 PO Last administered on 06/04/18at 11:43; Admin Dose 50,000 UNIT; Start 06/04/18 at 11:00 Nifedipine (Procardia Xl) 60 mg AM PO Last administered on 06/08/18 09:10; Admin Dose 60 MG; Start 06/05/18 at 09:00 Sevelamer Carbonate (Renvela) 800 mg WITH MEALS PO Last administered on 06/08/18 12:17; Admin Dose 800 MG; Start 06/05/18 at 08:30 Cholecalciferol (Vitamin D) 2,000 unit DAILY PO Last administered on 06/08/18 09:11; Admin Dose 2,000 UNIT; Start 06/05/18 at 14:00 Hydralazine HCl (Apresoline) 100 mg BID PO Last administered on 06/08/18 09:11; Admin Dose 100 MG; Start 06/06/18 at 21:00 Insulin Glargine (Lantus) 8 units HS SC Last administered on 06/06/18 20:49; Admin Dose 8 UNITS; Start 06/06/18 at 21:00 Metoprolol Succinate (Toprol Xl) 25 mg BID PO Last administered on 06/08/18 09:11; Admin Dose 25 MG; Start 06/06/18 at 21:00 Doxazosin Mesylate (Cardura) 4 mg HS PO Last administered on 06/07/18 20:48; Admin Dose 4 MG; Start 06/06/18 at 21:00 Ascorbic Acid (Vitamin C) 500 mg BID PO Last administered on 06/08/18 09:10; Admin Dose 500 MG; Start 06/06/18 at 21:00; Stop 07/06/18 at 20:59 Assessment/Plan Hospital Course (Demo Recall) 1. Increased BNP and shortness of breath, assess for congestive heart failure - now with perm-a-cath, HD to follow 2. Hypertension - allow for now - pending fluid removal 3. Dyslipidemia. 4. Abnormal electrocardiogram, assess for acute coronary syndrome, lateral T-w ave inversions. R/O [place], 5. Renal failure, severe - HD to follow. 6. Diabetes mellitus - on meds, on therapy. 7. Anemia - H/H stable - no bleed. 8. Benign prostatic hypertrophy. 9. Possible urinary retention. 10. CHF-systolic acute on chronic likely - remove fluid bow. 11. cardiomyopathy-EF 40-45% KIMO JAMA MD Jun 08, 2018 13:57
[2018-06-08] MEDS: INSULIN GLARGINE [LANTus] (100 UNITS/ML) SYG SC SCH (20:32)
[2018-06-08] MEDS: HEPARIN 1000 UNITS/ML 10 ML INJ CATHETER SCH (22:25)
[2018-06-08] MEDS: ATORVASTATIN 40 MG TAB PO SCH (22:52)
[2018-06-08] MEDS: CEFTRIAXONE 1 GM/50 ML (PMX) 50 ML IVPB SCH (22:52)
[2018-06-08] MEDS: DOXAZOSIN 4 MG TAB PO SCH (22:53)
[2018-06-08] MEDS: ACETAMINOPHEN 325 MG TAB PO PRN (22:59)
[2018-06-09] VITALS (22 sets, daily range): BP systolic 122–179; BP diastolic 60–88; PULSE 64–73; RESP 18–20
[2018-06-09] MEDS: ACCU-CHEK XX SCH (01:23)
[2018-06-09] MEDS: hydrALAzine 20 MG INJ IV PRN (03:49)
[2018-06-09] MEDS: ACETAMINOPHEN 325 MG TAB PO PRN (06:41)
[2018-06-09] MEDS: INSULIN ASPART [NOVOLOG] 3 ML PEN SC SCH ×4 (08:00→21:00)
[2018-06-09] MEDS: FERROUS SULFATE (EC) 325 MG TAB PO SCH ×2 (08:15→23:41)
[2018-06-09] MEDS: ASCORBIC ACID 500 MG TAB PO SCH ×2 (08:15→23:42)
[2018-06-09] MEDS: SEVELAMER CARBONATE 800 MG TABLET PO SCH ×3 (08:15→17:49)
[2018-06-09] MEDS: NIFEdipine (XL) 60 MG TAB PO SCH ×2 (08:16→23:41)
[2018-06-09] MEDS: METOPROLOL (XL) 25 MG TAB PO SCH ×2 (08:16→23:43)
[2018-06-09] MEDS: CHOLECALCIFEROL 2,000 UNIT CAP PO SCH (08:16)
--- NOTE | 2018-06-09 09:09 | PN ---
DATE: 06/09/2018 SUBJECTIVE: The patient had hemodialysis yesterday, tolerated well. No other events noted. No feve rs or chills. OBJECTIVE: VITAL SIGNS: Blood pressure is 162/75, pulse 65, respirations 20, temperature 98.5. HEENT: Head is normocephalic. NECK: Supple. HEART: Regular rate. LUNGS: Show diminished breath sounds at the base. ABDOMEN: Soft, nontender to palpation without rebound or guarding. EXTREMITIES: Negative for clubbing, cyanosis, no edema. DERMATOLOGIC: No rashes. MUSCULOSKELETAL: No joint effusion. NEUROLOGIC: No change in exam. MEDICATIONS: Reviewed. LABORATORY DATA: Reviewed. ASSESSMENT AND PLAN: 1. Chronic kidney disease stage IV, now with progression towards end-stage renal disease. The patie nt had hemodialysis yesterday. Anticipate dialysis again today and tomorrow for solute clearance and volume removal. 2. Hypernatremia. Continue to encourage free water intake. 3. Anemia. Continue to monitor hemoglobin and hematocrit levels. 4. Mineral bone disorder, monitor calcium and phosphorus levels. 5. Volume overload, improved. 6. Hypertension. Continue current blood pressure regimen. 7. Possible pneumonia. The patient is completing antibiotic course. 8. Diabetes. Continue current insulin regimen. 9. Dyslipidemia. Continue statin therapy. 10. 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 Continue to monitor. Dictated By: PEPITO CRISTOBAL DO NR/NTS Conf#: [id number] DID#: [id number] CC: DANGELO PERDUE MD; ADELIA ARIAS MD;*EndCC*
[2018-06-09] MEDS ORDERED: HYDROCODONE/APAP (5/325) TAB PO PRN (09:30)
[2018-06-09] MEDS: ONDANSETRON 4 MG INJ IV PRN ×2 (10:22→17:48)
--- NOTE | 2018-06-09 10:44 | PN ---
Date/Time of Note Date/Time of Note DATE: 06/09/18 TIME: 10:42 Assessment/Plan VTE Prophylaxis Risk score (from Nsg)>0 risk: 4 SCD applied (from Ns): No SCD contraindicated: other Pharmacological prophylaxis: NA/contraindicated Pharm contraindication: low risk/ambulating Lines/Catheters IV Catheter Type (from Nrs): Saline Lock Urinary Cath still in place: Yes Reason Cath still needed: other (indicate) Assessment/Plan Hospital Course SUBJECTIVE: Patient complains of some headache. Otherwise no acute distress. OBJECTIVE: Vital signs-see below PHYSICAL EXAM: Constitutional: Well-developed, adequately built, lying in bed comfortably. Psych: nl mood/affect, no complaints Head: atraumatic, normocephalic Eyes: blind ENMT: mucosa pink and moist, nl external ears & nose Neck: non-tender, supple Respiratory: +Crackles bases-improved , normal air movement Cardiovascular: nl pulses, regular rate and rhythm Gastrointestinal: non-tender, soft, bowel sounds active in all 4 quadrants. Musculoskeletal/extremities: +2 pitting BLE-improved. nl extremities to inspection, motor strength equal bilaterally, no focal deficit. Normal pulses,no cyanosisNeurological: Alert oriented 3,nl speech, nl strength Skin: nl turgor ASSESSMENT/PLAN: 58-year-old male with advanced CKD,htn,dm here with worsening BLE edema, renal fxn, htn who was referred by PCP to get admitted. 1. CKD, progressed to ESRD -Nephrology on board=> he has been started on hemodialysis and is getting dialysis in a row, plan is today and tomorrow. 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 2. Essential hypertension. -ACEi/ARB on hold per nephro, hopefully this can be started after dialysis in itiation -on.CCB/BB/Hydralazine/cardura=> once started on hemodialysis, patient might drop his blood pressure and we will be closely monitoring this for dose adjustments. 3. Volume overload w/ESRD -Now stable -Fluid management/UF per nephrology 4. Subclinical hypothyroidism -defer outpt f/u 5. Vitamin D deficiency -on sup 6. Type 2 diabetes. -Stable glycemic trends. -Accu-Cheks/ISS/Lantus insulin. 7. Dyslipidemia -Continue statin 8. BPH -On Flomax 9.Diabetic retinopathy -supportive care,outpt f/u DVT prophylaxis: SCDs/ambulation PUD prophylaxis: Not indicated CODE STATUS: Full code Diet: Renal/carbohydrate controlled diet. Disposition: As per nephrology, patient needs hemodialysis again today and tomorrow to stabilize his renal function as he is being started on dialysis for the first time. Patient also needs outpatient hemodialysis arranged by today and hopefully he can be discharged in next 24-48 hours with outpatient follow- up. Patient was seen in collaboration with Dr. Marmolejo Result Diagram: 06/09/1820 06/09/18519 Results 24hrs Laboratory Tests Test 06/08/18 12:17 06/08/18 17:28 06/08/18 20:26 06/09/18 05:20 Bedside Glucose 100 150 186 White Blood Count 4.4 L Red Blood Count 3.62 L Hemoglobin 9.8 L Hematocrit 31.7 L Mean Corpuscular 87.6 Volume Mean Corpuscular 27.1 L Hemoglobin Mean Corpuscular 30.9 L Hemoglobin Concent Red Cell 15.9 H Distribution Width Platelet Count 209 Mean Platelet Volume 10.3 Immature 0.500 H Granulocytes % Neutrophils % 75.7 Lymphocytes % 9.2 L Monocytes % 9.6 Eosinophils % 3.9 Basophils % 1.1 Nucleated Red Blood 0.0 Cells % Immature 0.020 Granulocytes # Neutrophils # 3.3 Lymphocytes # 0.4 L Monocytes # 0.4 Eosinophils # 0.2 Basophils # 0.1 Nucleated Red Blood 0.0 Cells # Sodium Level 143 Potassium Level 4.1 Chloride Level 105 Carbon Dioxide Level 27 Anion Gap 11 Blood Urea Nitrogen 58 H Creatinine 4.68 #H Est Glomerular 13 L Filtrat Rate mL/min Glucose Level 107 Calcium Level 8.0 L Phosphorus Level 4.9 Magnesium Level 2.2 Test 06/09/18 07:39 Bedside Glucose 113 Exam/Review of Systems Exam Vitals Vital Signs Date Temp Pulse Resp B/P (MAP) Pulse Ox O2 O2 Flow FiO2 Time Delivery Rate 06/09/18 162/75 08:10 (104) 06/09/18 66 08:00 06/09/18 98.5 20 92 Nasal 07:45 Cannula 06/08/18 2.0 22:30 Intake and Output 06/08/18 06/08/18 06/09/18 1414:59 22:59 06:59 IntakeIntake Total 580 ml 400 ml OutputOutput Total 1550 ml 1100 ml BalanceBalance -970 ml -700 ml Results Results 24hrs Laboratory Tests Test 06/08/18 12:17 06/08/18 17:28 06/08/18 20:26 06/09/18 05:20 Bedside Glucose 100 150 186 White Blood Count 4.4 L Red Blood Count 3.62 L Hemoglobin 9.8 L Hematocrit 31.7 L Mean Corpuscular 87.6 Volume Mean Corpuscular 27.1 L Hemoglobin Mean Corpuscular 30.9 L Hemoglobin Concent Red Cell 15.9 H Distribution Width Platelet Count 209 Mean Platelet Volume 10.3 Immature 0.500 H Granulocytes % Neutrophils % 75.7 Lymphocytes % 9.2 L Monocytes % 9.6 Eosinophils % 3.9 Basophils % 1.1 Nucleated Red Blood 0.0 Cells % Immature 0.020 Granulocytes # Neutrophils # 3.3 Lymphocytes # 0.4 L Monocytes # 0.4 Eosinophils # 0.2 Basophils # 0.1 Nucleated Red Blood 0.0 Cells # Sodium Level 143 Potassium Level 4.1 Chloride Level 105 Carbon Dioxide Level 27 Anion Gap 11 Blood Urea Nitrogen 58 H Creatinine 4.68 #H Est Glomerular 13 L Filtrat Rate mL/min Glucose Level 107 Calcium Level 8.0 L Phosphorus Level 4.9 Magnesium Level 2.2 Test 06/09/18 07:39 Bedside Glucose 113 Medications Medication Current Medications Nitroglycerin (Nitroglycerin (Sl Tab) 0.4 Mg) 1 tab Q5M UP TO 3 DOSES PRN SL .CHEST PAIN; Start 06/03/18 at 17:00 IV Flush (NS 3 ml) 3 ml PER PROTOCOL IV ; Start 06/03/18 at 20:30 Ondansetron HCl (Zofran Inj) 4 mg Q6H PRN IV NAUSEA/VOMITING Last administered on 06/09/18at 10:22; Admin Dose 4 MG; Start 06/03/18 at 20:30 Acetaminophen (Tylenol Tab) 650 mg Q6H PRN PO .PAIN 1-3 OR TEMP Last admi nistered on 06/09/18at 06:41; Admin Dose 650 MG; Start 06/03/18 at 20:30 Docusate Sodium (Colace) 100 mg Q12H PRN PO .CONSTIPATION Last administered on 06/05/18at 20:40; Admin Dose 100 MG; Start 06/03/18 at 20:30 Bisacodyl (Dulcolax) 5 mg DAILY PRN PO .CONSTIPATION; Start 06/03/18 at 20:30 Atorvastatin Calcium (Lipitor) 40 mg QHS PO Last administered on 06/08/18at 22:52; Admin Dose 40 MG; Start 06/04/18 at 21:00 Ferrous Sulfate (Ferrous Sulfate (Ec)) 325 mg BID PO Last administered on 06/09/18at 08:15; Admin Dose 325 MG; Start 06/04/18 at 09:00; Stop 07/04/18 at 08:59 Hydralazine HCl (Apresoline) 10 mg Q4H PRN IV ELEVATED BLOOD PRESSURE Last administered on 06/09/18at 03:49; Admin Dose 10 MG; Start 06/04/18 at 01:30 Ceftriaxone Sodium 50 ml @ 100 mls/hr Q24H IVPB Last administered on 06/08/18at 22:52; Admin Dose 100 MLS/HR; Start 06/04/18 at 20:00; Stop 06/11/18 at 19:59 Diagnostic Test (Pha) (Accu-Chek) 1 ea 02 XX Last administered on 06/07/18at 02:08; Admin Dose 1 EA; Start 06/05/18 at 02:00 Insulin Aspart (Novolog Insulin Pen) NOVOLOG *MILD* ALGORITHM WITH MEALS BEDTIME SC Last administered on 06/08/18at 17:45; Admin Dose 1 UNIT; Start 06/04/18 at 08:30 Miscellaneous Information 1 ea NOTE XX ; Start 06/04/18 at 08:00 Glucose (Glutose) 15 gm Q15M PRN PO DECREASED GLUCOSE; Start 06/04/18 at 08:00 Glucose (Glutose) 22.5 gm Q15M PRN PO DECREASED GLUCOSE; Start 06/04/18 at 08 :00 Dextrose (D50w Syringe) 25 ml Q15M PRN IV DECREASED GLUCOSE; Start 06/04/18 at 08:00 Dextrose (D50w Syringe) 50 ml Q15M PRN IV DECREASED GLUCOSE Last administered on 06/05/18at 08:20; Admin Dose 50 ML; Start 06/04/18 at 08:00 Glucagon (Glucagen) 1 mg Q15M PRN IM DECREASED GLUCOSE; Start 06/04/18 at 08:00 Glucose (Glutose) 15 gm Q15M PRN BUCCAL DECREASED GLUCOSE; Start 06/04/18 at 08:00 Ergocalciferol (Drisdol) 50,000 unit Fr@09 PO Last administered on 06/04/18 11:43; Admin Dose 50,000 UNIT; Start 06/04/18 at 11:00 Nifedipine (Procardia Xl) 60 mg AM PO Last administered on 06/09/18 08:16; Admin Dose 60 MG; Start 06/05/18 at 09:00 Sevelamer Carbonate (Renvela) 800 mg WITH MEALS PO Last administered on 06/09/18 08:15; Admin Dose 800 MG; Start 06/05/18 at 08:30 Cholecalciferol (Vitamin D) 2,000 unit DAILY PO Last administered on 06/09/18 08:16; Admin Dose 2,000 UNIT; Start 06/05/18 at 14:00 Hydralazine HCl (Apresoline) 100 mg BID PO Last administered on 06/09/18 08:15; Admin Dose 100 MG; Start 06/06/18 at 21:00 Insulin Glargine (Lantus) 8 units HS SC Last administered on 06/06/18 20:49; Admin Dose 8 UNITS; Start 06/06/18 at 21:00 Metoprolol Succinate (Toprol Xl) 25 mg BID PO Last administered on 06/09/18 08:16; Admin Dose 25 MG; Start 06/06/18 at 21:00 Doxazosin Mesylate (Cardura) 4 mg HS PO Last administered on 06/08/18 22:53; Admin Dose 4 MG; Start 06/06/18 at 21:00 Ascorbic Acid (Vitamin C) 500 mg BID PO Last administered on 06/09/18 08:15; Admin Dose 500 MG; Start 06/06/18 at 21:00; Stop 07/06/18 at 20:59 Heparin Sodium (Porcine) (Heparin (1000 Units/ml)) 4,500 unit AFTER DIALYSIS CATHETER Last administered on 06/08/18 22:25; Admin Dose 4,500 UNIT; Start 06/08/18 at 21:30 Acetaminophen/ Hydrocodone Bitart ([place] (5/325)) 1 tab Q4H PRN PO MODERATE PAIN LEVEL 4-6 Last administered on 06/09/18at 10:33; Admin Dose 1 TAB; Start 06/09/18 at 09:30 GIAN PONCE NP Jun 09, 2018 10:44
--- NOTE | 2018-06-09 12:52 | CONS ---
Assessment/Plan Assessment/Plan Hospital Course (Demo Recall) IMPRESSION: 1. Increased BNP and shortness of breath, assess for congestive heart failure. 2. Hypertension. 3. Dyslipidemia. 4. Abnormal electrocardiogram, assess for acute coronary syndrome, lateral T- wave inversions. 5. Renal failure, severe. 6. Diabetes mellitus. 7. Anemia. 8. Benign prostatic hypertrophy. 9. Possible urinary retention. 10. CHF-systolic acute on chronic likely 11. cardiomyopathy-EF 40-45% Recc: -Tele -Continue toprol/hydralazine/cardura/procardia and will make slight uptitration -Now started on HD Consultation Date/Type/Reason Admit Date/Time Jun 03, 2018 at 19:20 Initial Consult Date 06/04/18 Type of Consult Cardiology Reason for Consultation HTN/CHF Requesting Provider: ADELIA ARIAS Date/Time of Note DATE: 06/09/18 TIME: 12:45 Exam/Review of Systems Vital Signs Vitals Vital Signs Date Temp Pulse Resp B/P (MAP) Pulse Ox O2 O2 Flow FiO2 Time Delivery Rate 06/09/18 98.4 72 20 160/74 95 Nasal 11:09 (102) Cannula 06/09/18 2.0 08:15 Intake and Output 06/08/18 06/08/18 06/09/18 1414:59 22:59 06:59 IntakeIntake Total 580 ml 400 ml OutputOutput Total 1550 ml 1100 ml BalanceBalance -970 ml -700 ml Exam Exam Review of Systems: CONSTITUTIONAL: No fevers, chills. PULMONARY: mild sob CARDIOVASCULAR: No chest pain/palpitations GASTROINTESTINAL: No nausea/vomiting. GENITOURINARY: No hematuria/dysuria. MUSCULOSKELETAL: No myagias/arthalgias. PSYCHIATRIC: The patient denies depression. NEUROLOGIC: No weakness Constitutional: alert Psych: no complaints Head: normocephalic ENMT: mucosa pink and moist Neck: supple, jvd (9 cm water) Respiratory: diminished breath sounds Cardiovascular: regular rate and rhythm Gastrointestinal: soft, non-tender Musculoskeletal: muscle tone (normal) Neurological: other (no focal deficits) Labs Result Diagram: 06/09/18 0520 06/09/18 0520 Results 24hrs Laboratory Tests Test 06/08/18 17:28 06/08/18 20:26 06/09/18 05:20 06/09/18 07:39 Bedside Glucose 150 186 113 White Blood Count 4.4 L Red Blood Count 3.62 L Hemoglobin 9.8 L Hematocrit 31.7 L Mean Corpuscular 87.6 Volume Mean Corpuscular 27.1 L Hemoglobin Mean Corpuscular 30.9 L Hemoglobin Concent Red Cell 15.9 H Distribution Width Platelet Count 209 Mean Platelet Volume 10.3 Immature 0.500 H Granulocytes % Neutrophils % 75.7 Lymphocytes % 9.2 L Monocytes % 9.6 Eosinophils % 3.9 Basophils % 1.1 Nucleated Red Blood 0.0 Cells % Immature 0.020 Granulocytes # Neutrophils # 3.3 Lymphocytes # 0.4 L Monocytes # 0.4 Eosinophils # 0.2 Basophils # 0.1 Nucleated Red Blood 0.0 Cells # Sodium Level 143 Potassium Level 4.1 Chloride Level 105 Carbon Dioxide Level 27 Anion Gap 11 Blood Urea Nitrogen 58 H Creatinine 4.68 #H Est Glomerular 13 L Filtrat Rate mL/min Glucose Level 107 Calcium Level 8.0 L Phosphorus Level 4.9 Magnesium Level 2.2 Medications Medications Current Medications Nitroglycerin (Nitroglycerin (Sl Tab) 0.4 Mg) 1 tab Q5M UP TO 3 DOSES PRN SL .CHEST PAIN; Start 06/03/18 at 17:00 IV Flush (NS 3 ml) 3 ml PER PROTOCOL IV ; Start 06/03/18 at 20:30 Ondansetron HCl (Zofran Inj) 4 mg Q6H PRN IV NAUSEA/VOMITING Last administered on 06/09/18at 10:22; Admin Dose 4 MG; Start 06/03/18 at 20:30 Acetaminophen (Tylenol Tab) 650 mg Q6H PRN PO .PAIN 1-3 OR TEMP Last administered on 06/09/18at 06:41; Admin Dose 650 MG; Start 06/03/18 at 20:30 Docusate Sodium (Colace) 100 mg Q12H PRN PO .CONSTIPATION Last administered on 06/05/18at 20:40; Admin Dose 100 MG; Start 06/03/18 at 20:30 Bisacodyl (Dulcolax) 5 mg DAILY PRN PO .CONSTIPATION; Start 06/03/18 at 20:30 Atorvastatin Calcium (Lipitor) 40 mg QHS PO Last administered on 06/08/18at 22:52; Admin Dose 40 MG; Start 06/04/18 at 21:00 Ferrous Sulfate (Ferrous Sulfate (Ec)) 325 mg BID PO Last administered on 06/09/18at 08:15; Admin Dose 325 MG; Start 06/04/18 at 09:00; Stop 07/04/18 at 08:59 Hydralazine HCl (Apresoline) 10 mg Q4H PRN IV ELEVATED BLOOD PRESSURE Last administered on 06/09/18at 03:49; Admin Dose 10 MG; Start 06/04/18 at 01:30 Ceftriaxone Sodium 50 ml @ 100 mls/hr Q24H IVPB Last administered on 06/08/18at 22:52; Admin Dose 100 MLS/HR; Start 06/04/18 at 20:00; Stop 06/11/18 at 19:59 Diagnostic Test (Pha) (Accu-Chek) 1 ea 02 XX Last administered on 06/07/18at 02:08; Admin Dose 1 EA; Start 06/05/18 at 02:00 Insulin Aspart (Novolog Insulin Pen) NOVOLOG *MILD* ALGORITHM WITH MEALS BEDTIME SC Last administered on 06/08/18at 17:45; Admin Dose 1 UNIT; Start 06/04/18 at 08:30 Miscellaneous Information 1 ea NOTE XX ; Start 06/04/18 at 08:00 Glucose (Glutose) 15 gm Q15M PRN PO DECREASED GLUCOSE; Start 06/04/18 at 08:00 Glucose (Glutose) 22.5 gm Q15M PRN PO DECREASED GLUCOSE; Start 06/04/18 at 08:00 Dextrose (D50w Syringe) 25 ml Q15M PRN IV DECREASED GLUCOSE; Start 06/04/18 at 08:00 Dextrose (D50w Syringe) 50 ml Q15M PRN IV DECREASED GLUCOSE Last administered on 06/05/18at 08:20; Admin Dose 50 ML; Start 06/04/18 at 08:00 Glucagon (Glucagen) 1 mg Q15M PRN IM DECREASED GLUCOSE; Start 06/04/18 at 08:00 Glucose (Glutose) 15 gm Q15M PRN BUCCAL DECREASED GLUCOSE; Start 06/04/18 at 08:00 Ergocalciferol (Drisdol) 50,000 unit Fr@09 PO Last administered on 06/04/18at 11:43; Admin Dose 50,000 UNIT; Start 06/04/18 at 11:00 Nifedipine (Procardia Xl) 60 mg AM PO Last administered on 06/09/18 08:16; Admin Dose 60 MG; Start 06/05/18 at 09:00 Sevelamer Carbonate (Renvela) 800 mg WITH MEALS PO Last administered on 06/09/18 08:15; Admin Dose 800 MG; Start 06/05/18 at 08:30 Cholecalciferol (Vitamin D) 2,000 unit DAILY PO Last administered on 06/09/18 08:16; Admin Dose 2,000 UNIT; Start 06/05/18 at 14:00 Hydralazine HCl (Apresoline) 100 mg BID PO Last administered on 06/09/18 08:15; Admin Dose 100 MG; Start 06/06/18 at 21:00 Insulin Glargine (Lantus) 8 units HS SC Last administered on 06/06/18 20:49; Admin Dose 8 UNITS; Start 06/06/18 at 21:00 Metoprolol Succinate (Toprol Xl) 25 mg BID PO Last administered on 06/09/18 08:16; Admin Dose 25 MG; Start 06/06/18 at 21:00 Doxazosin Mesylate (Cardura) 4 mg HS PO Last administered on 06/08/18 22:53; Admin Dose 4 MG; Start 06/06/18 at 21:00 Ascorbic Acid (Vitamin C) 500 mg BID PO Last administered on 06/09/18 08:15; Admin Dose 500 MG; Start 06/06/18 at 21:00; Stop 07/06/18 at 20:59 Heparin Sodium (Porcine) (Heparin (1000 Units/ml)) 4,500 unit AFTER DIALYSIS CATHETER Last administered on 06/08/18 22:25; Admin Dose 4,500 UNIT; Start 06/08/18 at 21:30 Acetaminophen/ Hydrocodone Bitart ([place] (5/325)) 1 tab Q4H PRN PO MODERATE PAIN LEVEL 4-6 Last administered on 06/09/18 10:33; Admin Dose 1 TAB; Start 06/09/18 at 09:30 JAYCEE MYERS [birth year], 2019 12:52
[2018-06-09] MEDS: INSULIN GLARGINE [LANTus] (100 UNITS/ML) SYG SC SCH (21:00)
[2018-06-09] MEDS: HEPARIN 1000 UNITS/ML 10 ML INJ CATHETER SCH (22:49)
[2018-06-09] MEDS: CEFTRIAXONE 1 GM/50 ML (PMX) 50 ML IVPB SCH (23:40)
[2018-06-09] MEDS: ATORVASTATIN 40 MG TAB PO SCH (23:41)
[2018-06-09] MEDS: DOXAZOSIN 4 MG TAB PO SCH (23:42)
[2018-06-10] VITALS (25 sets, daily range): BP systolic 142–186; BP diastolic 63–86; PULSE 68–86; RESP 18–20
[2018-06-10] MEDS: ACCU-CHEK XX SCH (02:00)
[2018-06-10] MEDS: INSULIN ASPART [NOVOLOG] 3 ML PEN SC SCH ×4 (07:32→20:51)
[2018-06-10] MEDS: DOCUSATE SODIUM 100 MG CAP PO PRN (08:07)
[2018-06-10] MEDS: SEVELAMER CARBONATE 800 MG TABLET PO SCH ×3 (08:07→16:39)
[2018-06-10] MEDS: FERROUS SULFATE (EC) 325 MG TAB PO SCH ×2 (08:07→20:50)
[2018-06-10] MEDS: CHOLECALCIFEROL 2,000 UNIT CAP PO SCH (08:07)
[2018-06-10] MEDS: ASCORBIC ACID 500 MG TAB PO SCH ×2 (08:07→20:50)
[2018-06-10] MEDS: METOPROLOL (XL) 25 MG TAB PO SCH ×2 (08:08→20:51)
[2018-06-10] MEDS: NIFEdipine (XL) 60 MG TAB PO SCH ×2 (08:08→20:49)
--- NOTE | 2018-06-10 09:26 | PN ---
DATE: 06/10/2018 SUBJECTIVE: The patient is stable. No events overnight. The patient had hemodialysis yesterday, to lerated well. No other events noted. OBJECTIVE: VITAL SIGNS: Blood pressure is 153/71, respirations 20, pulse 73, temperature 98.5. HEENT: Head is normocephalic. NECK: Supple. HEART: Regular rate. LUNGS: Show diminished breath sounds at the base. ABDOMEN: Soft, nontender to palpation. No rebound or guarding. EXTREMITIES: Negative for clubbing, cyanosis, no edema. DERMATOLOGIC: No rashes. MUSCULOSKELETAL: No joint effusion. NEUROLOGIC: No change in exam. MEDICATIONS: Reviewed. LABORATORY DATA: Reviewed. IMAGING STUDIES: Reviewed. ASSESSMENT AND PLAN: 1. Chronic kidney disease stage IV, now with progression towards end-stage renal disease. The patie nt had hemodialysis x2 sessions. We will anticipate dialysis today. The patient's outpatient dialys is has been arranged at [facility] on Thursday, Thursday and Thursday on chair. 2. Hypernatremia, improved. 3. Anemia. Monitor hemoglobin and hematocrit levels. Continue Epogen. 4. Mineral bone disorder. Monitor calcium and phosphorus levels. 5. Volume overload, improved. 6. Hypertension. Continue current blood pressure regimen. 7. Possible pneumonia. The patient is completing antibiotic course. 8. Diabetes. Continue current insulin regimen. 9. Dyslipidemia. Continue statin therapy. 10. 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 Continue to monitor. DISPOSITION: The patient's outpatient hemodialysis has been arranged on Thursday, Thursday, and y, at 1:30 at [facility]. Dictated By: PEPITO CRISTOBAL DO NR/JOSEPH Conf#: [id number] DID#: [id number] CC: ADELIA ARIAS MD; DANGELO PERDUE MD;*EndCC*
--- NOTE | 2018-06-10 13:37 | PN ---
Date/Time of Note Date/Time of Note DATE: 06/10/18 TIME: 13:28 Assessment/Plan VTE Prophylaxis Risk score (from Nsg)>0 risk: 6 SCD applied (from Nsg): No SCD contraindicated: other Pharmacological prophylaxis: NA/contraindicated Pharm contraindication: low risk/ambulating Lines/Catheters IV [facility]ter [facility] (from [facility] Peripheral IV Urinary Cath still in place: Yes Reason Cath still needed: other (indicate) Assessment/Plan Hospital Course SUBJECTIVE: tolerating hemodialysis well. OBJECTIVE: Vital signs-see below PHYSICAL EXAM: Constitutional: Well-developed, adequately built, lying in bed comfortably. Psych: nl mood/affect, no complaints Head: atraumatic, normocephalic Eyes: blind ENMT: mucosa pink and moist, nl external ears & nose Neck: non-tender, supple Respiratory: +Crackles bases-improved , normal air movement Cardiovascular: nl pulses, regular rate and rhythm Gastrointestinal: non-tender, soft, bowel sounds active in all 4 quadrants. Musculoskeletal/extremities: +2 pitting BLE-improved. nl extremities to inspection, motor strength equal bilaterally, no focal deficit. Normal pulses,no cyanosisNeurological: Alert oriented 3,nl speech, nl strength Skin: nl turgor ASSESSMENT/PLAN: 58-year-old male with advanced CKD,htn,dm here with worsening BLE edema, renal fxn, htn who was referred by PCP to get admitted. 1. 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 2. Essential hypertension. -needs more control,hopefully HD will take care of this. ACEi/ARB on hold per nephro, hopefully this can be started as he is now on HD -on.CCB/BB/Hydralazine/Cardura 3. Volume overload w/ESRD -Now stable -Fluid management/UF per nephrology 4. Subclinical hypothyroidism -defer outpt f/u 5. Vitamin D deficiency -on sup 6. Type 2 diabetes. -Stable glycemic trends. -Accu-Cheks/ISS/Lantus insulin. 7. Dyslipidemia -Continue statin 8. BPH -On Flomax 9.Diabetic retinopathy -supportive care,outpt f/u DVT prophylaxis: SCDs/ambulation PUD prophylaxis: Not indicated CODE STATUS: Full code Diet: Renal/carbohydrate controlled diet. Disposition: pt is getting hemodialysis in a row..outpt hemodialysis is arranged. Hopefully he can be dialyzed couple more sessions and discharged in next 24-48 hours with outpatient follow-up. Patient was seen in collaboration with Dr. Marmolejo Result Diagram: 06/09/18 0520 06/09/18 0520 Results 24hrs Laboratory Tests Test 06/09/18 17:39 06/09/18 22:13 06/10/18 07:31 06/10/18 11:40 Bedside Glucose 125 111 95 115 Exam/Review of Systems Exam Vitals Vital Signs Date Temp Pulse Resp B/P (MAP) Pulse Ox O2 O2 Flow FiO2 Time Delivery Rate 06/10/18 75 13:20 06/10/18 18 167/73 93 Nasal 3.0 13:05 (104) Cannula 06/10/18 99.3 11:23 Intake and Output 06/09/18 06/09/18 06/10/18 1515:00 23:00 07:00 IntakeIntake Total 560 ml 250 ml OutputOutput Total 1700 ml 200 ml BalanceBalance -1140 ml 50 ml Results Results 24hrs Laboratory Tests Test 06/09/18 17:39 06/09/18 22:13 06/10/18 07:31 06/10/18 11:40 Bedside Glucose 125 111 95 115 Medications Medication Current Medications Nitroglycerin (Nitroglycerin (Sl Tab) 0.4 Mg) 1 tab Q5M UP TO 3 DOSES PRN SL .CHEST PAIN; Start 06/03/18 at 17:00 IV Flush (NS 3 ml) 3 ml PER PROTOCOL IV ; Start 06/03/18 at 20:30 Ondansetron HCl (Zofran Inj) 4 mg Q6H PRN IV NAUSEA/VOMITING Last administered on 06/09/18at 17:48; Admin Dose 4 MG; Start 06/03/18 at 20:30 Acetaminophen (Tylenol Tab) 650 mg Q6H PRN PO .PAIN 1-3 OR TEMP Last administered on 06/09/18at 06:41; Admin Dose 650 MG; Start 06/03/18 at 20:30 Docusate Sodium (Colace) 100 mg Q12H PRN PO .CONSTIPATION Last administered on 06/10/18at 08:07; Admin Dose 100 MG; Start 06/03/18 at 20:30 Bisacodyl (Dulcolax) 5 mg DAILY PRN PO .CONSTIPATION Last administered on 06/10/18at 08:07; Admin Dose 5 MG; Start 06/03/18 at 20:30 Atorvastatin Calcium (Lipitor) 40 mg QHS PO Last administered on 06/09/18at 23:41; Admin Dose 40 MG; Start 06/04/18 at 21:00 Ferrous Sulfate (Ferrous Sulfate (Ec)) 325 mg BID PO Last administered on 06/10/18at 08:07; Admin Dose 325 MG; Start 06/04/18 at 09:00; Stop 07/04/18 at 08:59 Hydralazine HCl (Apresoline) 10 mg Q4H PRN IV ELEVATED BLOOD PRESSURE Last administered on 06/09/18at 03:49; Admin Dose 10 MG; Start 06/04/18 at 01:30 Ceftriaxone Sodium 50 ml @ 100 mls/hr Q24H IVPB Last administered on 06/09/18at 23:40; Admin Dose 100 MLS/HR; Start 06/04/18 at 20:00; Stop 06/11/18 at 19:59 Diagnostic Test (Pha) (Accu-Chek) 1 ea 02 XX Last administered on 06/07/18at 02:08; Admin Dose 1 EA; Start 06/05/18 at 02:00 Insulin Aspart (Novolog Insulin Pen) NOVOLOG *MILD* ALGORITHM WITH MEALS BEDTIME SC Last administered on 06/08/18at 17:45; Admin Dose 1 UNIT; Start 06/04/18 at 08:30 Miscellaneous Information 1 ea NOTE XX ; Start 06/04/18 at 08:00 Glucose (Glutose) 15 gm Q15M PRN PO DECREASED GLUCOSE; Start 06/04/18 at 08:00 Glucose (Glutose) 22.5 gm Q15M PRN PO DECREASED GLUCOSE; Start 06/04/18 at 08: 00 Dextrose (D50w Syringe) 25 ml Q15M PRN IV DECREASED GLUCOSE; Start 06/04/18 at 08:00 Dextrose (D50w Syringe) 50 ml Q15M PRN IV DECREASED GLUCOSE Last administered on 06/05/18at 08:20; Admin Dose 50 ML; Start 06/04/18 at 08:00 Glucagon (Glucagen) 1 mg Q15M PRN IM DECREASED GLUCOSE; Start 06/04/18 at 08:00 Glucose (Glutose) 15 gm Q15M PRN BUCCAL DECREASED GLUCOSE; Start 06/04/18 at 08:00 Ergocalciferol (Drisdol) 50,000 unit Fr@09 PO Last administered on 06/04/18 11:43; Admin Dose 50,000 UNIT; Start 06/04/18 at 11:00 Sevelamer Carbonate (Renvela) 800 mg WITH MEALS PO Last administered on 06/10/18 08:07; Admin Dose 800 MG; Start 06/05/18 at 08:30 Cholecalciferol (Vitamin D) 2,000 unit DAILY PO Last administered on 06/10/18 08:07; Admin Dose 2,000 UNIT; Start 06/05/18 at 14:00 Hydralazine HCl (Apresoline) 100 mg BID PO Last administered on 06/10/18 08:07; Admin Dose 100 MG; Start 06/06/18 at 21:00 Insulin Glargine (Lantus) 8 units HS SC Last administered on 06/06/18 20:49; Admin Dose 8 UNITS; Start 06/06/18 at 21:00 Metoprolol Succinate (Toprol Xl) 25 mg BID PO Last administered on 06/10/18 08:08; Admin Dose 25 MG; Start 06/06/18 at 21:00 Doxazosin Mesylate (Cardura) 4 mg HS PO Last administered on 06/09/18 23:42; Admin Dose 4 MG; Start 06/06/18 at 21:00 Ascorbic Acid (Vitamin C) 500 mg BID PO Last administered on 06/10/18 08:07; Admin Dose 500 MG; Start 06/06/18 at 21:00; Stop 07/06/18 at 20:59 Heparin Sodium (Porcine) (Heparin (1000 Units/ml)) 4,500 unit AFTER DIALYSIS CATHETER Last administered on 06/09/18 22:49; Admin Dose 4,500 UNIT; Start 06/08/18 at 21:30 Acetaminophen/ Hydrocodone Bitart ([place] (5/325)) 1 tab Q4H PRN PO MODERATE PAIN LEVEL 4-6 Last administered on 06/09/18 10:33; Admin Dose 1 TAB; Start 06/09/18 at 09:30 Nifedipine (Procardia Xl) 60 mg BID PO Last administered on 06/10/18at 08:08; Admin Dose 60 MG; Start 06/09/18 at 21:00 GIAN PONCE NP Jun 10, 2018 13:37
--- NOTE | 2018-06-10 13:42 | CONS ---
Assessment/Plan Assessment/Plan Hospital Course (Demo Recall) IMPRESSION: 1. Increased BNP and shortness of breath, assess for congestive heart failure. 2. Hypertension. 3. Dyslipidemia. 4. Abnormal electrocardiogram, assess for acute coronary syndrome, lateral T- wave inversions. 5. Renal failure, severe. 6. Diabetes mellitus. 7. Anemia. 8. Benign prostatic hypertrophy. 9. Possible urinary retention. 10. CHF-systolic acute on chronic likely 11. cardiomyopathy-EF 40-45% Recc: -Tele -Continue toprol/cardura/procardia and will make slight uptitration -Will uptitrate hydralazine and follow BP closely -Now started on HD Consultation Date/Type/Reason Admit Date/Time Jun 03, 2018 at 19:20 Initial Consult Date 06/04/18 Type of Consult Cardiology Reason for Consultation HTN/CHF Requesting Provider: ADELIA ARIAS Date/Time of Note DATE: 06/10/18 TIME: 13:39 Exam/Review of Systems Vital Signs Vitals Vital Signs Date Temp Pulse Resp B/P (MAP) Pulse Ox O2 O2 Flow FiO2 Time Delivery Rate 06/10/18 75 13:20 06/10/18 18 167/73 93 Nasal 3.0 13:05 (104) Cannula 06/10/18 99.3 11:23 Intake and Output 06/09/18 06/09/18 06/10/18 1515:00 23:00 07:00 IntakeIntake Total 560 ml 250 ml OutputOutput Total 1700 ml 200 ml BalanceBalance -1140 ml 50 ml Exam Exam Review of Systems: CONSTITUTIONAL: No fevers, chills. PULMONARY: mild sob CARDIOVASCULAR: No chest pain/palpitations GASTROINTESTINAL: No nausea/vomiting. GENITOURINARY: No hematuria/dysuria. MUSCULOSKELETAL: No myagias/arthalgias. PSYCHIATRIC: The patient denies depression. NEUROLOGIC: No weakness Constitutional: alert, oriented Psych: no complaints Head: normocephalic ENMT: mucosa pink and moist Neck: supple, jvd (9 cm water) Respiratory: diminished breath sounds Cardiovascular: regular rate and rhythm Gastrointestinal: soft, non-tender Musculoskeletal: muscle tone (normal) Extremities: edema (none) Neurological: other (No focal deficits) Labs Result Diagram: 06/09/1851906/09/18519 Results 24hrs Laboratory Tests Test 06/09/18 17:39 06/09/18 22:13 06/10/18 07:31 06/10/18 11:40 Bedside Glucose 125 111 95 115 Medications Medications Current Medications Nitroglycerin (Nitroglycerin (Sl Tab) 0.4 Mg) 1 tab Q5M UP TO 3 DOSES PRN SL .CHEST PAIN; Start 06/03/18 at 17:00 IV Flush (NS 3 ml) 3 ml PER PROTOCOL IV ; Start 06/03/18 at 20:30 Ondansetron HCl (Zofran Inj) 4 mg Q6H PRN IV NAUSEA/VOMITING Last administered on 06/09/18 17:48; Admin Dose 4 MG; Start 06/03/18 at 20:30 Acetaminophen (Tylenol Tab) 650 mg Q6H PRN PO .PAIN 1-3 OR TEMP Last administered on 06/09/18 06:41; Admin Dose 650 MG; Start 06/03/18 at 20:30 Docusate Sodium (Colace) 100 mg Q12H PRN PO .CONSTIPATION Last administered on 06/10/18 08:07; Admin Dose 100 MG; Start 06/03/18 at 20:30 Bisacodyl (Dulcolax) 5 mg DAILY PRN PO .CONSTIPATION Last administered on 06/10/18 08:07; Admin Dose 5 MG; Start 06/03/18 at 20:30 Atorvastatin Calcium (Lipitor) 40 mg QHS PO Last administered on 06/09/18 23:41; Admin Dose 40 MG; Start 06/04/18 at 21:00 Ferrous Sulfate (Ferrous Sulfate (Ec)) 325 mg BID PO Last administered on 06/10/18 08:07; Admin Dose 325 MG; Start 06/04/18 at 09:00; Stop 07/04/18 at 08:59 Hydralazine HCl (Apresoline) 10 mg Q4H PRN IV ELEVATED BLOOD PRESSURE Last administered on 06/09/18 03:49; Admin Dose 10 MG; Start 06/04/18 at 01:30 Ceftriaxone Sodium 50 ml @ 100 mls/hr Q24H IVPB Last administered on 06/09/18 23:40; Admin Dose 100 MLS/HR; Start 06/04/18 at 20:00; Stop 06/11/18 at 19:59 Diagnostic Test (Pha) (Accu-Chek) 1 ea 02 XX Last administered on 06/07/18at 02:08; Admin Dose 1 EA; Start 06/05/18 at 02:00 Insulin Aspart (Novolog Insulin Pen) NOVOLOG *MILD* ALGORITHM WITH MEALS BEDTIME SC Last administered on 06/08/18 17:45; Admin Dose 1 UNIT; Start 06/04/18 at 08:30 Miscellaneous Information 1 ea NOTE XX ; Start 06/04/18 at 08:00 Glucose (Glutose) 15 gm Q15M PRN PO DECREASED GLUCOSE; Start 06/04/18 at 08:00 Glucose (Glutose) 22.5 gm Q15M PRN PO DECREASED GLUCOSE; Start 06/04/18 at 08:00 Dextrose (D50w Syringe) 25 ml Q15M PRN IV DECREASED GLUCOSE; Start 06/04/18 at 08:00 Dextrose (D50w Syringe) 50 ml Q15M PRN IV DECREASED GLUCOSE Last administered on 06/05/18 08:20; Admin Dose 50 ML; Start 06/04/18 at 08:00 Glucagon (Glucagen) 1 mg Q15M PRN IM DECREASED GLUCOSE; Start 06/04/18 at 08:00 Glucose (Glutose) 15 gm Q15M PRN BUCCAL DECREASED GLUCOSE; Start 06/04/18 at 08:00 Ergocalciferol (Drisdol) 50,000 unit Fr@09 PO Last administered on 06/04/18at 11:43; Admin Dose 50,000 UNIT; Start 06/04/18 at 11:00 Sevelamer Carbonate (Renvela) 800 mg WITH MEALS PO Last administered on 9at 08:07; Admin Dose 800 MG; Start 06/05/18 at 08:30 Cholecalciferol (Vitamin D) 2,000 unit DAILY PO Last administered on 06/10/18 08:07; Admin Dose 2,000 UNIT; Start 06/05/18 at 14:00 Hydralazine HCl (Apresoline) 100 mg BID PO Last administered on 06/10/18 08:07; Admin Dose 100 MG; Start 06/06/18 at 21:00 Insulin Glargine (Lantus) 8 units HS SC Last administered on 06/06/18at 20:49; Admin Dose 8 UNITS; Start 06/06/18 at 21:00 Metoprolol Succinate (Toprol Xl) 25 mg BID PO Last administered on 06/10/18 08:08; Admin Dose 25 MG; Start 06/06/18 at 21:00 Doxazosin Mesylate (Cardura) 4 mg HS PO Last administered on 06/09/18 23:42; Admin Dose 4 MG; Start 06/06/18 at 21:00 Ascorbic Acid (Vitamin C) 500 mg BID PO Last administered on 06/10/18 08:07; Admin Dose 500 MG; Start 06/06/18 at 21:00; Stop 07/06/18 at 20:59 Heparin Sodium (Porcine) (Heparin (1000 Units/ml)) 4,500 unit AFTER DIALYSIS CATHETER Last administered on 06/09/18 22:49; Admin Dose 4,500 UNIT; Start 06/08/18 at 21:30 Acetaminophen/ Hydrocodone Bitart ([place] (5/325)) 1 tab Q4H PRN PO MODERATE PAIN LEVEL 4-6 Last administered on 06/09/18 10:33; Admin Dose 1 TAB; Start 06/09/18 at 09:30 Nifedipine (Procardia Xl) 60 mg BID PO Last administered on 06/10/18 08:08; Admin Dose 60 MG; Start 06/09/18 at 21:00 JAYCEE MYERS Jun 10, 2018 13:42
[2018-06-10] MEDS: HEPARIN 1000 UNITS/ML 10 ML INJ CATHETER SCH (14:46)
[2018-06-10] MEDS: hydrALAzine 20 MG INJ IV PRN (14:47)
[2018-06-10] MEDS: ATORVASTATIN 40 MG TAB PO SCH (20:49)
[2018-06-10] MEDS: DOXAZOSIN 4 MG TAB PO SCH (20:50)
[2018-06-10] MEDS: CEFTRIAXONE 1 GM/50 ML (PMX) 50 ML IVPB SCH (20:55)
[2018-06-11] VITALS (19 sets, daily range): BP systolic 118–189; BP diastolic 61–84; PULSE 65–78; RESP 17–20
[2018-06-11] MEDS: hydrALAzine 20 MG INJ IV PRN (00:19)
[2018-06-11] MEDS: ACCU-CHEK XX SCH (02:00)
[2018-06-11] MEDS: INSULIN ASPART [NOVOLOG] 3 ML PEN SC SCH ×4 (07:19→21:00)
[2018-06-11] MEDS: CHOLECALCIFEROL 2,000 UNIT CAP PO SCH (09:22)
[2018-06-11] MEDS: ASCORBIC ACID 500 MG TAB PO SCH ×2 (09:22→21:30)
[2018-06-11] MEDS: FERROUS SULFATE (EC) 325 MG TAB PO SCH ×2 (09:22→21:30)
[2018-06-11] MEDS: SEVELAMER CARBONATE 800 MG TABLET PO SCH ×3 (09:22→17:36)
[2018-06-11] MEDS: NIFEdipine (XL) 60 MG TAB PO SCH ×2 (09:23→21:29)
[2018-06-11] MEDS: LISINOPRIL 20 MG TAB PO SCH ×2 (09:23→21:31)
[2018-06-11] MEDS: METOPROLOL (XL) 25 MG TAB PO SCH ×2 (09:23→21:30)
[2018-06-11] MEDS: ERGOCALCIFEROL 50,000 UNIT CAP PO SCH (09:30)
--- NOTE | 2018-06-11 09:41 | PN ---
DATE: 06/11/2018 SUBJECTIVE: The patient is stable, no events overnight. Patient is pending hemodialysis today. OBJECTIVE: VITAL SIGNS: Blood pressure is 174/79, respirations 17, pulse 78, temperature 99.2. HEENT: Head is normocephalic. NECK: Supple. HEART: Regular rate. LUNGS: Show diminished breath sounds at base. ABDOMEN: Soft, nontender to palpation without rebound or guarding. EXTREMITIES: Negative for clubbing, cyanosis, no edema. DERMATOLOGIC: No rashes. MUSCULOSKELETAL: No joint effusions. NEUROLOGIC: No change in exam. MEDICATIONS: The patient's medications have been reviewed. LABORATORY DATA: Has been reviewed. ASSESSMENT AND PLAN: 1. End-stage renal disease. The patient is scheduled for hemodialysis today. The patient's outpati ent dialysis has been arranged at [facility] on Thursday, Thursday, Thursday starting at 1:30. Karson hodges's chair is available starting next Thursday. Will continue to monitor. 2. Hypernatremia, improved. 3. Anemia. Monitor hemoglobin and hematocrit levels. Continue Epogen. 4. Mineral bone disorder. Monitor calcium and phosphorus levels. 5. Hypertension. The patient's blood pressure regimen was adjusted. Start the patient on lisinopri l 20 mg b.i.d. 6. Continue other blood pressure medications. Continue ultrafiltration with dialysis. 7. Possible pneumonia. Patient completing antibiotic course. 8. Diabetes. Continue current insulin regimen. 9. Dyslipidemia. Continue statin therapy. 10. 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 Continue to monitor. DISPOSITION: The patient's hemodialysis has been arranged at [facility] on Thursday, Thursday, Thu at 1:30. Dictated By: PEPITO KASPER/JOSEPH Conf#: [id number] DID#: [id number] CC: ADELIA ARIAS MD;*EndCC*
--- NOTE | 2018-06-11 10:14 | PDOCDIS ---
Discharge Instructions CONDITION [id number] Patient Condition: [id number] Stable HOME CARE INSTRUCTIONS: [id number] Your diet recommendation is: [id number] renal/carb controlled diet FOLLOW UP/APPOINTMENTS Follow-up Plan OUT PATIENT HD ARRANGED WITH ROLAND BAUMAN PER CHRISTINA THURSDAY-THURSDAY AND THURSDAY AT [address] [facility] [address] [facility] [address] [place] [address] [phone] User: Chiara Hess RN Date: 06/09/18 10:55 Type: Nurse Notes Roland called-spoke with staff Karissa, confirmation #[id number]. Follow-up with Dr. Canada and outpatient dialysis clinic. Name, Degree Sung Canada DO Specialty Internal Medicine Comments Office Address [address] [facility] [address] [place] [address] Office 2.follow up with correctional corporal Name, Degree Mahendra Alicea MD Specialty Interventional Cardiology Comments Office Address [address] [place] [address] Office 3.follow up with primary doctor in 1 week GIAN PONCE NP Jun 11, 2018 10:14
[2018-06-11] MEDS ORDERED: HYDR-3671 PO (10:21)
[2018-06-11] MEDS ORDERED: METO-335 PO (10:21)
[2018-06-11] MEDS ORDERED: ASC500 PO (10:21)
[2018-06-11] MEDS ORDERED: ERGO500013 PO (10:21)
[2018-06-11] MEDS ORDERED: SEVE800T7 PO (10:21)
[2018-06-11] MEDS ORDERED: NIFE60TA2 PO (10:21)
[2018-06-11] MEDS ORDERED: DOXA4TAB2 PO (10:21)
[2018-06-11] MEDS ORDERED: LISI-471 PO (10:21)
--- NOTE | 2018-06-11 10:36 | DS ---
Date/Time of Note Date/Time of Note DATE: 06/11/18 TIME: 10:32 Discharge Summary Admission/Discharge Info Admit Date/Time Jun 03, 2018 at 19:20 Discharge Date/Time Discharge Diagnosis 1. CKD, progressed to ESRD.HM (MWF) 2. Essential hypertension. 3. Volume overload w/ESRD.stable 4. Subclinical hypothyroidism 5. Vitamin D deficiency 6. Type 2 diabetes. 7. Dyslipidemia 8. BPH 9.Diabetic retinopathy Patient Condition: Stable Consults Dr. Canada, nephrology Dr. Alicea, cardiology Procedures 06/08/2018.PLACEMENT OF RIGHT INTERNAL JUGULAR VENOUS TUNNELED DIALYSIS CATHETER. 06/08/2018. Initiation of hemodialysis. 06/03/2018. IMPRESSION: Echogenic kidneys, consistent with medical renal disease. No evidence of hydronephrosis. Moderately distended urinary bladder with a moderate amount of layering debris. 06/03/2018. Chest x-ray IMPRESSION: Mild cardiomegaly. Calcified aorta consistent with atherosclerotic disease. Right lower lobe infiltrate and small to moderate right pleural effusion. Trace left pleural effusion. 06/06/2018. Ultrasound carotids. IMPRESSION: No evidence for hemodynamically significant stenosis in the bilateral internal carotid arteries - validated velocity measurements with angiographic measurements, velocity criteria are extrapolated from diameter data as defined by the Society of Radiologists in Ultrasound Consensus Conference Radiology 2003; 229;340-346. This study does indirectly reference the measurement of the distal ICA diameter as the denominator for stenosis measurement. Normal antegrade flow in the vertebral arteries bilaterally. Hospital Course 58-year-old male with advanced CKD,htn,dm here with worsening BLE edema, renal fxn, htn who was referred by PCP to get admitted. Patient was noted with chronic kidney disease which was progressed to end-stage renal disease requiring dialysis initiation. He was being followed by digital marketing associate and was started on hemodialysis on 06/08/2018 after he had a permacath placed on right IJ. Patient was dialyzed in sessions with improvement in renal function. Blood pressure also stabilized. He was continued on multiple antihypertensives to control it. Patient was also noted with subclinical hypothyroidism which was deferred for outpatient follow-up. Volume status remained stable. Patient was continued on insulin regimen for underlying diabetes. He was also noted with vitamin D deficiency for which supplementation was given. At this time, patient is back to baseline. Labs and vital signs stable. Outpatient hemodialysis was arranged. Patient is medically stable to be discharged with outpatient follow-up. Approximately 60 minutes was spent on coordinating the discharge on this patient. Patient was seen in collaboration w/ Home Meds Active Scripts Ergocalciferol (Vitamin D2) (VITAMIN D2) 50,000 Unit Capsule, 08599 UNIT PO Fr@09, #8 CAP After 2 months, he can start taking vitamin D [id number] 2000 international units daily. Prov:PONCE,GIAN V. CONTINUOUS MINING MACHINE LODE MINER 06/11/18 Ascorbic Acid (Vitamin C) 500 Mg Tab, 500 MG PO BID, #60 TAB Prov:PONCE,GIAN V. CONTINUOUS MINING MACHINE LODE MINER 06/11/18 Sevelamer Carbonate* (Renvela*) 800 Mg Tablet, 800 MG PO WITH MEALS, #90 TAB Prov:PONCE,GIAN V. CONTINUOUS MINING MACHINE LODE MINER 06/11/18 Nifedipine (Procardia Xl) 60 Mg Tab.er.24, 60 MG PO BID, #60 TAB Prov:PONCE,GIAN V. CONTINUOUS MINING MACHINE LODE MINER 06/11/18 Metoprolol Succinate* (Toprol XL*) 25 Mg Tab.sr.24h, 25 MG PO BID, #60 TAB Prov:PONCE,GIAN V. CONTINUOUS MINING MACHINE LODE MINER 06/11/18 Lisinopril* (Lisinopril*) 20 Mg Tablet, 20 MG PO BID, #30 TAB Prov:PONCE,GIAN V. CONTINUOUS MINING MACHINE LODE MINER 06/11/18 Hydralazine Hcl* (Hydralazine Hcl*) 25 Mg Tab, 75 MG PO TID, #90 TAB Prov:PONCE,GIAN V. CONTINUOUS MINING MACHINE LODE MINER 06/11/18 Doxazosin Mesylate* (Cardura*) 4 Mg Tablet, 4 MG PO HS, #30 TAB Prov:PONCE,GIAN V. CONTINUOUS MINING MACHINE LODE MINER 06/11/18 Reported Medications Epoetin Federico (Procrit) 10,000 Unit/1 Ml Vial, 92667 UNIT IJ Q1 WEEK, VIAL 06/03/18 Furosemide* (Furosemide*) 80 Mg Tablet, 80 MG PO BID, #60 TAB 06/03/18 Ferrous Sulfate* (Ferrous Sulfate*) 325 Mg Tabec, 325 MG PO BID, TAB 06/03/18 Glipizide* (Glipizide*) 10 Mg Tablet, 5 MG PO AC BREAKFAST DINNER, TAB 06/03/18 Insulin Glargine,Hum.rec.anlog (Basaglar Kwikpen U-100) 100 Unit/1 Ml Insuln.pen, 10 UNIT SC QHS, EA 06/03/18 Losartan Potassium* (Losartan Potassium*) 50 Mg Tablet, 50 MG PO DAILY, TAB 06/03/18 Atorvastatin* (Atorvastatin*) 40 Mg Tablet, 40 MG PO QHS, #30 TAB 06/03/18 Hydralazine Hcl* (Hydralazine Hcl*) 50 Mg Tab, 50 MG PO TID, #90 TAB 06/03/18 Tamsulosin Hcl* (Tamsulosin Hcl*) 0.4 Mg Cap.er.24h, 0.4 MG PO HS, CAP 06/03/18 Sitagliptin* (Januvia*) 100 Mg Tablet, 100 MG PO DAILY, #30 TAB 06/03/18 Follow-up Plan OUT PATIENT HD ARRANGED WITH ROLAND BAUMAN PER CHRISTINA THURSDAY-THURSDAY AND THURSDAY AT [address] [facility] [address] [facility] [address] [place] [address] [phone] User: Chiara Hess RN Date: 06/09/18 10:55 Type: Nurse Notes Roland called-spoke with staff Karissa, confirmation #[id number]. Follow-up with Dr. Canada and outpatient dialysis clinic. Name, Degree Sung Canada DO Specialty Internal Medicine Comments Office Address [address] [facility] [address] [place] [address] Office 2.follow up with applications engineer manufacturing Name, Degree Mahendra Alicea MD Specialty Interventional Cardiology Comments Office Address [address] [place] [address] Office 3.follow up with primary doctor in 1 week Primary Care Provider Not On Staff Doctor Pending Labs Laboratory Tests Test 06/10/18 11:40 06/10/18 16:38 06/10/18 20:48 06/11/18 07:19 Bedside 115 95 104 88 Glucose mg/dL (70-220) mg/dL (70-220) mg/dL (70-220) mg/dL (70-220) GIAN PONCE NP Jun 11, 2018 10:35
--- NOTE | 2018-06-11 13:40 | CONS ---
Assessment/Plan Assessment/Plan Hospital Course (Demo Recall) IMPRESSION: 1. Increased BNP and shortness of breath, assess for congestive heart failure. 2. Hypertension. 3. Dyslipidemia. 4. Abnormal electrocardiogram, assess for acute coronary syndrome, lateral T- wave inversions. 5. Renal failure, severe. 6. Diabetes mellitus. 7. Anemia. 8. Benign prostatic hypertrophy. 9. Possible urinary retention. 10. CHF-systolic acute on chronic likely 11. cardiomyopathy-EF 40-45% Recc: -Tele -Continue toprol/cardura/procardia and will further uptitrate hydralzine and follow BP clsoely -Now started on HD. Follow volume status clsoely Consultation Date/Type/Reason Admit Date/Time Jun 03, 2018 at 19:20 Initial Consult Date 06/04/18 Type of Consult Cardiology Reason for Consultation CHF/HTN Requesting Provider: ADELIA ARIAS Date/Time of Note DATE: 06/11/18 TIME: 13:37 Exam/Review of Systems Vital Signs Vitals Vital Signs Date Temp Pulse Resp B/P (MAP) Pulse Ox O2 O2 Flow FiO2 Time Delivery Rate 06/11/18 3.0 13:24 06/11/18 96 Nasal 12:43 Cannula 06/11/18 77 12:10 06/11/18 99.9 18 141/66 11:53 (91) Intake and Output 06/10/18 06/10/18 06/11/18 1515:00 23:00 07:00 IntakeIntake Total 440 ml 500 ml OutputOutput Total 1600 ml 400 ml BalanceBalance -1160 ml 100 ml Exam Exam Review of Systems: CONSTITUTIONAL: No fevers, chills. PULMONARY: No sob CARDIOVASCULAR: No chest pain/palpitations GASTROINTESTINAL: No nausea/vomiting. GENITOURINARY: No hematuria/dysuria. MUSCULOSKELETAL: No myagias/arthalgias. PSYCHIATRIC: The patient denies depression. NEUROLOGIC: No weakness Constitutional: alert, oriented Psych: no complaints Head: normocephalic ENMT: mucosa pink and moist Neck: supple, jvd (9 cm water) Respiratory: diminished breath sounds (at bases/B) Cardiovascular: regular rate and rhythm Gastrointestinal: soft, non-tender Musculoskeletal: muscle tone (norml) Extremities: edema (none) Neurological: other (No focal deficits) Labs Result Diagram: 06/09/18 0520 06/09/18 0520 Results 24hrs Laboratory Tests Test 06/10/18 16:38 06/10/18 20:48 06/11/18 07:19 06/11/18 11:52 Bedside Glucose 95 104 88 107 Medications Medications Current Medications Nitroglycerin (Nitroglycerin (Sl Tab) 0.4 Mg) 1 tab Q5M UP TO 3 DOSES PRN SL .CHEST PAIN; Start 06/03/18 at 17:00 IV Flush (NS 3 ml) 3 ml PER PROTOCOL IV ; Start 06/03/18 at 20:30 Ondansetron HCl (Zofran Inj) 4 mg Q6H PRN IV NAUSEA/VOMITING Last administered on 06/09/18 17:48; Admin Dose 4 MG; Start 06/03/18 at 20:30 Acetaminophen (Tylenol Tab) 650 mg Q6H PRN PO .PAIN 1-3 OR TEMP Last administered on 06/09/18 06:41; Admin Dose 650 MG; Start 06/03/18 at 20:30 Docusate Sodium (Colace) 100 mg Q12H PRN PO .CONSTIPATION Last administered on 06/10/18 08:07; Admin Dose 100 MG; Start 06/03/18 at 20:30 Bisacodyl (Dulcolax) 5 mg DAILY PRN PO .CONSTIPATION Last administered on 06/10/18 08:07; Admin Dose 5 MG; Start 06/03/18 at 20:30 Atorvastatin Calcium (Lipitor) 40 mg QHS PO Last administered on 06/10/18at 2 0:49; Admin Dose 40 MG; Start 06/04/18 at 21:00 Ferrous Sulfate (Ferrous Sulfate (Ec)) 325 mg BID PO Last administered on 06/11/18 09:22; Admin Dose 325 MG; Start 06/04/18 at 09:00; Stop 07/04/18 at 08:59 Hydralazine HCl (Apresoline) 10 mg Q4H PRN IV ELEVATED BLOOD PRESSURE Last administered on 06/11/18 00:19; Admin Dose 10 MG; Start 06/04/18 at 01:30 Ceftriaxone Sodium 50 ml @ 100 mls/hr Q24H IVPB Last administered on 06/10/18 20:55; Admin Dose 100 MLS/HR; Start 06/04/18 at 20:00; Stop 06/11/18 at 19:59 Diagnostic Test (Pha) (Accu-Chek) 1 ea 02 XX Last administered on 06/07/18at 02:08; Admin Dose 1 EA; Start 06/05/18 at 02:00 Insulin Aspart (Novolog Insulin Pen) NOVOLOG *MILD* ALGORITHM WITH MEALS BEDTIME SC Last administered on 06/08/18 17:45; Admin Dose 1 UNIT; Start 06/04/18 at 08:30 Miscellaneous Information 1 ea NOTE XX ; Start 06/04/18 at 08:00 Glucose (Glutose) 15 gm Q15M PRN PO DECREASED GLUCOSE; Start 06/04/18 at 08:00 Glucose (Glutose) 22.5 gm Q15M PRN PO DECREASED GLUCOSE; Start 06/04/18 at 08:00 Dextrose (D50w Syringe) 25 ml Q15M PRN IV DECREASED GLUCOSE; Start 06/04/18 at 08:00 Dextrose (D50w Syringe) 50 ml Q15M PRN IV DECREASED GLUCOSE Last administered on 06/05/18 08:20; Admin Dose 50 ML; Start 06/04/18 at 08:00 Glucagon (Glucagen) 1 mg Q15M PRN IM DECREASED GLUCOSE; Start 06/04/18 at 08:00 Glucose (Glutose) 15 gm Q15M PRN BUCCAL DECREASED GLUCOSE; Start 06/04/18 at 08:00 Ergocalciferol (Drisdol) 50,000 unit Fr@09 PO Last administered on 06/11/18 09:30; Admin Dose 50,000 UNIT; Start 06/04/18 at 11:00 Sevelamer Carbonate (Renvela) 800 mg WITH MEALS PO Last administered on 06/11/18 09:22; Admin Dose 800 MG; Start 06/05/18 at 08:30 Cholecalciferol (Vitamin D) 2,000 unit DAILY PO Last administered on 06/11/18 09:22; Admin Dose 2,000 UNIT; Start 06/05/18 at 14:00 Insulin Glargine (Lantus) 8 units HS SC Last administered on 06/06/18 20:49; Admin Dose 8 UNITS; Start 06/06/18 at 21:00; Status Hold Metoprolol Succinate (Toprol Xl) 25 mg BID PO Last administered on 06/11/18 09:23; Admin Dose 25 MG; Start 06/06/18 at 21:00 Doxazosin Mesylate (Cardura) 4 mg HS PO Last administered on 06/10/18 20:50; Admin Dose 4 MG; Start 06/06/18 at 21:00 Ascorbic Acid (Vitamin C) 500 mg BID PO Last administered on 06/11/18 09:22; Admin Dose 500 MG; Start 06/06/18 at 21:00; Stop 07/06/18 at 20:59 Heparin Sodium (Porcine) (Heparin (1000 Units/ml)) 4,500 unit AFTER DIALYSIS CATHETER Last administered on 06/10/18 14:46; Admin Dose 4,500 UNIT; Start 06/08/18 at 21:30 Acetaminophen/ Hydrocodone Bitart ([place] (5/325)) 1 tab Q4H PRN PO MODERATE PAIN LEVEL 4-6 Last administered on 06/09/18 10:33; Admin Dose 1 TAB; Start 06/09/18 at 09:30 Nifedipine (Procardia Xl) 60 mg BID PO Last administered on 06/11/18 09:23; Admin Dose 60 MG; Start 06/09/18 at 21:00 Hydralazine HCl (Apresoline) 75 mg Q8 PO Last administered on 06/11/18 05:53; Admin Dose 75 MG; Start 06/10/18 at 14:00 Lisinopril (Zestril) 20 mg BID PO Last administered on 06/11/18 09:23; Admin Dose 20 MG; Start 06/11/18 at 09:00 JAYCEE MYERS Jun 11, 2018 13:40
[2018-06-11] MEDS: HEPARIN 1000 UNITS/ML 10 ML INJ CATHETER SCH (16:38)
[2018-06-11] MEDS: ATORVASTATIN 40 MG TAB PO SCH (21:29)
[2018-06-11] MEDS: DOXAZOSIN 4 MG TAB PO SCH (21:29)
== END 2018-06-11 22:09 | disposition home or self-care (01) | DRG 291 ==
LOC: E/R 14:34 → 6WM 19:20
PROVIDERS: ADMIT Family Medicine; ATTEND Family Medicine
PROC: 02H633Z Insertion of Infusion Device into Right Atrium, Percutaneous Approach (ICD-10-PCS; 2018-06-08)
PROC: 5A1D70Z Performance of Urinary Filtration, Intermittent, Less than 6 Hours Per Day (ICD-10-PCS; 2018-06-08)
PROC: 0JH63XZ Insertion of Tunneled Vascular Access Device into Chest Subcutaneous Tissue and Fascia, Percutaneous Approach (ICD-10-PCS; principal; 2018-06-08 10:00)
DX: I13.2 Hypertensive heart and chronic kidney disease with heart failure and with stage 5 chronic kidney disease, or end stage renal disease (principal); N18.6 End stage renal disease; I50.23 Acute on chronic systolic (congestive) heart failure; J18.9 Pneumonia, unspecified organism; E87.0 Hyperosmolality and hypernatremia; I42.9 Cardiomyopathy, unspecified; E11.22 Type 2 diabetes mellitus with diabetic chronic kidney disease; I16.0 Hypertensive urgency; E78.5 Hyperlipidemia, unspecified; E11.319 Type 2 diabetes mellitus with unspecified diabetic retinopathy without macular edema; E55.9 Vitamin D deficiency, unspecified; E03.9 Hypothyroidism, unspecified; D63.1 Anemia in chronic kidney disease; H54.7 Unspecified visual loss; N40.1 Benign prostatic hyperplasia with lower urinary tract symptoms; R33.8 Other retention of urine; Z79.4 Long term (current) use of insulin
CPT/HCPCS: 36415; 71045; 76775; 80048; 80053; 80061; 80069; 81001; 81003; 82043; 82306; 82550; 82553; 82652; 82962; 83036; 83540; 83605; 83735; 83880; 83970; 84100; 84153; 84154; 84155; 84300; 84439; 84443; 84484; 85025; 85610; 85730; 86704; 86706; 86709; 86803; 87040; 87086; 87340; 90935; 93005; 93306; 93880; 96365; 96367; 96375; C1750; J0360; J0456; J0696; J1644; J1815; J1940; J2250; J2270; J2405; J3010

== ENCOUNTER 2018-07-07 16:36 | Emergency (ER) | payer SELFPAY ==
[~2018-07-07] VITALS: Wt 69.0 kg
[~2018-07-07 16:36] MED LIST changes: -ADMELOG; -ALBUTEROL SULFATE; +ASC500 PO; +ATOR40TA68 PO; -ATORVASTATIN; +DOXA4TAB2 PO; +EPOE10004 IJ; +ERGO500013 PO; +FER325 PO; -FERROUS SULFATE; -FUROSEMIDE; +GLIP10TA14 PO; -GLIPIZIDE; +HYDR-3671 PO; -HYDRALAZINE; +INSU100I33 SC; +LISI-471 PO; -LOSARTAN; +METO-335 PO; +NIFE60TA2 PO; +SEVE800T7 PO; +SITA100T11 PO; +TAMS0.4C2 PO; -TAMSULOSIN
[2018-07-07 16:53] VITALS: BP 214/102; PULSE 69; RESP 20; Wt 69.0 kg
== END 2018-07-07 19:41 | disposition left against medical advice (07) ==
LOC: E/R 16:36
DX: Z53.21 Procedure and treatment not carried out due to patient leaving prior to being seen by health care provider (principal)

== ENCOUNTER 2018-08-09 15:40 | Emergency (ER) | payer OTHER ==
[~2018-08-09] VITALS: Ht 167.6 cm; Wt 64.8 kg
[2018-08-09 15:46] VITALS: Ht 167.6 cm; Wt 64.8 kg
--- NOTE | 2018-08-09 16:10 | ERD ---
ER Documentation Chief Complaint Chief Complaint sent after 2.5hrs dialysis for HTN HPI This is a 58-year-old man referred here by dialysis center for hypertension, patient has end-stage kidney disease and had about 2 hours of hemodialysis today although they could not continue because of elevated blood pressure. Patient denies chest pain or shortness of breath, no headache or blurry vision, no slurred speech, no weakness in his arms or legs. Patient is essentially asymptomatic but came here due to his referral. ROS All systems reviewed and are negative except as per history of present illness. Medications Home Meds Active Scripts Ascorbic Acid (Vitamin C) 500 Mg Tab, 500 MG PO BID, #60 TAB Prov:PONCE,GIAN V. SALICYLIC ACID BLENDER 06/11/18 Nifedipine (Procardia Xl) 60 Mg Tab.er.24, 60 MG PO BID, #60 TAB Prov:PONCE,GIAN V. SALICYLIC ACID BLENDER 06/11/18 Metoprolol Succinate* (Toprol XL*) 25 Mg Tab.sr.24h, 25 MG PO BID, #60 TAB Prov:PONCE,GIAN V. SALICYLIC ACID BLENDER 06/11/18 Lisinopril* (Lisinopril*) 20 Mg Tablet, 20 MG PO BID, #30 TAB Prov:PONCE,GIAN V. SALICYLIC ACID BLENDER 06/11/18 Doxazosin Mesylate* (Cardura*) 4 Mg Tablet, 4 MG PO HS, #30 TAB Prov:PONCE,GIAN V. SALICYLIC ACID BLENDER 06/11/18 Reported Medications Hydralazine Hcl* (Hydralazine Hcl*) 25 Mg Tab, 25 MG PO Q8, #90 TAB 08/09/18 Glipizide* (Glipizide*) 10 Mg Tablet, 5 MG PO AC BREAKFAST DINNER, TAB 06/03/18 Atorvastatin* (Atorvastatin*) 40 Mg Tablet, 40 MG PO QHS, #30 TAB 06/03/18 Tamsulosin Hcl* (Tamsulosin Hcl*) 0.4 Mg Cap.er.24h, 0.4 MG PO HS, CAP 06/03/18 Sitagliptin* (Januvia*) 100 Mg Tablet, 100 MG PO DAILY, #30 TAB 06/03/18 Discontinued Reported Medications Epoetin Federico (Procrit) 10,000 Unit/1 Ml Vial, 55515 UNIT IJ Q1 WEEK, VIAL 06/03/18 Ferrous Sulfate* (Ferrous Sulfate*) 325 Mg Tabec, 325 MG PO BID, TAB 06/03/18 Insulin Glargine,Hum.rec.anlog (Basaglar Kwikpen U-100) 100 Unit/1 Ml Insuln.pen, 10 UNIT SC QHS, EA 06/03/18 Discontinued Scripts Ergocalciferol (Vitamin D2) (VITAMIN D2) 50,000 Unit Capsule, 81158 UNIT PO Fr@09, #8 CAP After 2 months, he can start taking vitamin D [id number] 2000 international units daily. Prov:PONCE,GIAN V. SALICYLIC ACID BLENDER 06/11/18 Sevelamer Carbonate* (Renvela*) 800 Mg Tablet, 800 MG PO WITH MEALS, #90 TAB Prov:PONCE,GIAN V. SALICYLIC ACID BLENDER 06/11/18 Hydralazine Hcl* (Hydralazine Hcl*) 25 Mg Tab, 75 MG PO TID, #90 TAB Prov:PONCE,GIAN V. SALICYLIC ACID BLENDER 06/11/18 Allergies Allergies: Coded Allergies: No Known Allergy (Unverified , 08/09/18) PMhx/Soc CHF with a EF of 40%, diabetes mellitus, hypertension, BPH, abnormal EKG, dyslipidemia, renal failure, vision loss due to diabetic retinopathy, hemodialysis dependent History of Surgery: Yes (APPENDECTOMY) Anesthesia Reaction: No Hx Neurological Disorder: No Hx Respiratory Disorders: No Hx Cardiac Disorders: Yes (HTN) Hx Psychiatric Problems: No Hx Miscellaneous Medical Probl: No Hx Alcohol Use: Yes (STOPPED 10 YEARS AGO) Hx Substance Use: No Hx Tobacco Use: No Physical Exam Vitals Vital Signs Date Temp Pulse Resp B/P (MAP) Pulse Ox O2 O2 Flow FiO2 Time Delivery Rate 08/09/18 97.8 70 18 153/69 98 Room Air 17:30 (97) 08/09/18 97.7 89 18 214/96 98 Room Air 16:35 (135) 08/09/18 97.7 68 18 214/96 95 15:46 (135) Physical Exam Const: No acute distress, afebrile Resp: Clear to auscultation bilaterally Cardio: Regular rate and rhythm, no murmurs Abd: Soft, non tender, non distended. Skin: No petechiae or rashes Back: No midline or flank tenderness Ext: No cyanosis, or edema Neur: Awake and alert x3, no focal deficits or facial asymmetry, pupils equal round reactive to light, gait normal, afebrile Psych: Normal Mood and Affect Result Diagram: 08/09/18 1639 08/09/18 1639 Results 24 hrs Laboratory Tests Test 08/09/18 16:39 White Blood Count 6.3 10^3/ul Red Blood Count 3.22 10^6/ul Hemoglobin 9.1 g/dl Hematocrit 29.0 % Mean Corpuscular Volume 90.1 fl Mean Corpuscular Hemoglobin 28.3 pg Mean Corpuscular Hemoglobin Concent 31.4 g/dl Red Cell Distribution Width 17.5 % Platelet Count 96 10^3/UL Mean Platelet Volume 9.5 fl Immature Granulocytes % 0.600 % Neutrophils % 75.3 % Lymphocytes % 9.9 % Monocytes % 10.4 % Eosinophils % 3.2 % Basophils % 0.6 % Nucleated Red Blood Cells % 0.0 /100WBC Immature Granulocytes # 0.040 10^3/ul Neutrophils # 4.8 10^3/ul Lymphocytes # 0.6 10^3/ul Monocytes # 0.7 10^3/ul Eosinophils # 0.2 10^3/ul Basophils # 0.0 10^3/ul Nucleated Red Blood Cells # 0.0 10^3/ul Sodium Level 141 mmol/L Potassium Level 4.0 mmol/L Chloride Level 99 mmol/L Carbon Dioxide Level 34 mmol/L Anion Gap 8 Blood Urea Nitrogen 35 mg/dl Creatinine 3.91 mg/dl Est Glomerular Filtrat Rate mL/min 16 mL/min Glucose Level 134 mg/dl Calcium Level 8.4 mg/dl Total Bilirubin 0.6 mg/dl Direct Bilirubin 0.00 mg/dl Indirect Bilirubin 0.6 mg/dl Aspartate Amino Transf (AST/SGOT) 21 IU/L Alanine Aminotransferase (ALT/SGPT) 22 IU/L Alkaline Phosphatase 129 IU/L Troponin I 0.017 ng/ml Total Protein 7.4 g/dl Albumin 4.1 g/dl Globulin 3.30 g/dl Albumin/Globulin Ratio 1.24 Lipase 128 U/L Current Medications Medications Dose Sig/Kingsley Start Time Status Last (Trade) Ordered Route PRN Stop Time Admin Dose Reason Admin Hydralazine 20 mg ONCE ONCE 08/09/18 DC 08/09/18 HCl IV 16:30 16:42 (Apresoline) 08/09/18 16:31 Procedures/MDM IV line was established patient was placed on pvc monitor rhythm strip revealed a sinus rhythm at about 70 bpm with upright P and T waves. Patient was afebrile EKG performed, read by me: 67 bpm, normal sinus rhythm, normal axis, no acute ST segment changes, narrow QRS complex, with good R-wave progression in precordial leads. 1 view chest x-ray performed, read by me reveals cardiomegaly and bilateral pulmonary vascular congestion, mild, hemodialysis catheter in the right chest, no acute infiltrates, no pneumothorax. I administered hydralazine 20 mg IV x1 for hypertension. CBC reveals mild anemia, lecture lites are unremarkable, liver function tests normal, troponin negative Differential diagnoses considered, included but not limited to acute coronary syndrome, pulmonary embolism, aortic dissection, abdominal aortic aneurysm, sepsis, stroke, meningitis, encephalitis, pneumonia, appendicitis, cholecystitis, bowel obstruction, pyelonephritis, nephrolithiasis, cystitis, as well as metabolic, hematologic, and electrolyte abnormalities. As well as abscess, cellulitis, fractures, and dislocations. Patient feels much better at this time, and vital signs are normal, symptoms have improved. I did give strict instructions to return to the ED if symptoms continue or worsen, patient will otherwise follow-up with primary care physician. Patient understood instructions and agreed to plan. Disclaimer: Inadvertent spelling and grammatical errors are likely due to EHR/dictation software use and do not reflect on the overall quality of patient care. Also, please note that the electronic time recorded on this note does not necessarily reflect the actual time of the patient encounter. Departure Diagnosis: Primary Impression: Essential hypertension Additional Impression: End stage kidney disease Condition: Good WILTON BURDICK MD August 09, 2018 16:10
[2018-08-09] MEDS ORDERED: hydrALAzine 20 MG INJ IV ONE (16:30)
[2018-08-09] MEDS ORDERED: HYDR-3671 PO (17:16)
[2018-08-09 17:30] VITALS: BP 153/69; PULSE 70; RESP 18
== END 2018-08-09 17:40 | disposition home or self-care (01) ==
LOC: E/R 15:40
DX: I13.2 Hypertensive heart and chronic kidney disease with heart failure and with stage 5 chronic kidney disease, or end stage renal disease (principal); I50.9 Heart failure, unspecified; N18.6 End stage renal disease; E11.22 Type 2 diabetes mellitus with diabetic chronic kidney disease; Z99.2 Dependence on renal dialysis; Z79.4 Long term (current) use of insulin
CPT/HCPCS: 36415; 71045; 80053; 83690; 84484; 85025; 93005; 96374; J0360; Z7502